=== PATIENT | male | born 1980 ===

== ENCOUNTER 2023-05-27 07:11 | Emergency (ER) | payer MEDICARE, MEDICAID, SELFPAY ==
--- NOTE | ~2023-05-27 | XR_ITS ---
EXAMINATION: XR ANKLE, LEFT CLINICAL INFORMATION: Ankle pain COMPARISON: None available. TECHNIQUE: AP, lateral, and mortise views of the left ankle. FINDINGS: Soft tissue swelling of the ankle. Comminuted intra-articular fracture of the medial malleolus, including a transverse fracture plane, with lateral displacement of the distal bone. Multiple displaced fracture fragments seen. Spiral/oblique intra-articular fracture of the distal fibula, involving the epiphysis, metaphysis, with posterior displacement of the distal bone by approximately 0.7 cm. . There is asymmetry of the ankle mortise. Talar dome appears intact. Anterior calcaneal process and fifth metatarsal base appears intact. Moderate plantar and dorsal calcaneal spurring. XR/XR ankle LT min 3V IMPRESSION: Comminuted displaced intra-articular medial malleolar fracture. Spiral/oblique displaced intra-articular fracture of the distal fibula. Disruption of the ankle mortise. Soft tissue swelling.
[2023-05-27 07:18] VITALS: BP 132/67; PULSE 57; RESP 16; TEMP 36.8; O2SAT 97; BMI 34.3
--- NOTE | 2023-05-27 07:34 | ED.GENADULT ---
HPI - General Adult General Chief complaint: Extremity Injury, Lower Stated complaint: SLIPPED AND FELL TWISTED ANKLE - HEAD STRIKE Time Seen by Provider: 05/27/23 07:31 Source: patient and EMS Mode of arrival: EMS Limitations: no limitations History of Present Illness HPI narrative: This is a 43-year-old male without significant medical history presenting to the emergency department status post trip and fall down two steps about 20 minutes prior to arrival, patient reports when he slipped he rolled his left ankle outward, since then has been having pain, swelling with that is worse with movement better at rest. Denies head strike or loss of consciousness with fall, not on blood thinners. Denies injury to chest, abdomen or pelvis. Denies numbness, tingling, fevers, chills, preceding symptoms to fall such as chest pain, shortness of breath, headache, vision changes or dizziness. Related Data Previous Rx's Medication Instructions Recorded ketorolac 10 mg tablet 10 mg PO TID PRN pain 5 days #15 05/27/23 tabs morphine 15 mg immediate release 15 mg PO Q6H PRN pain 5 days #10 05/27/23 tablet tabs Allergies Allergy/AdvReac Type Severity Reaction Status Date / Time No Known Allergies Allergy Verified 05/27/23 07:20 [facility] Social History Social History Advance Directives: No Advance Directives Information Provided: No Physical Exam ED Vital Signs: Vital Signs - 24 hr 05/27/23 07:18 Temperature 98.3 F Pulse Rate 57 Respiratory Rate 16 Blood Pressure 132/67 Pulse Oximetry 97 Oxygen Delivery Method Room Air BMI result Body Mass Index 34.3 Vital signs stable Appearance: Alert.? Oriented X3.? No acute distress.? Head: Normocephalic, atraumatic, no step-offs or deformities Eyes: Pupils equal, round and reactive to light.? Neck: Normal inspection.? Neck supple.? CVS: Normal heart rate and rhythm.? Pulses normal.? Respiratory: No respiratory distress.? Breath sounds normal.? Abdomen: Soft and nontender.? Skin: Skin warm and dry.? Normal skin color.? Normal skin turgor.? Extremities: No lower extremity edema.? No calf ttp. 5/5 strength to bilateral upper and lower extremities 2+ DP,AT,PT pulses equal and b/l. Full rom to b/l toes and ankles however discomfort w/ rom of left ankle. Cap refil < 2 seconds to b/l LE. Normal sensation distally to b/l LE. TTP to left ankle laterally w/ overlying swelling. Back: No midline tenderness, no C-spine tenderness, full range of motion, no CVA tenderness bilaterally Neuro: Oriented X 3.? No motor deficit.? No sensory deficit. CN 2-12 intact . Normal [id number], [id number], steady tandem gait normal coordination Course Reevaluation(s) Reevaluation #1: X-ray showing a comminuted displaced intra-articular medial malleolar fracture, spiral/oblique displaced intra-articular fracture of the distal fibula and disruption of the ankle mortise, soft tissue swelling noted. I did discuss this case with orthopedics who recommends splint outpatient follow-up within the next 5-7 days. Will give morphine for pain control at this time. Time: 08:20 Reevaluation #2: Patient still in pain will give Toradol. Will place patient in a stirrup and posterior short splint, educated on compartment syndrome and proper crutch use and ortho follow-up. Educated on worsening signs and symptoms and when to return. Advised him to call the Orthopedic team 1st thing on Monday to schedule an appointment peer Educated patient on diagnosis and treatment plan, answered all question, patient verbalizes understanding. At this time patient will be discharged home, advised to return with new or worsening symptoms. Educated on worrisome signs and symptoms and when to return. At this time I feel comfortable discharge home. Time: 08:58 Reevaluation #3: after splint application nv status intact Medical Decision Making Medical Decision Making [facility] Narrative: 43 yo m presents w/ left ankle pain and swelling s/p trip and fall PE- 2+ DP,AT,PT pulses equal and b/l. Full rom to b/l toes and ankles however discomfort w/ rom of left ankle. Cap refil < 2 seconds to b/l LE. Normal sensation distally to b/l LE. TTP to left ankle laterally w/ overlying swelling. Likely fractured vs sprain or strain. Unlikely dislocation unlikely NV compromise or threat to limb. Patient did not hit his head or neck w/ fall. No signs of traumatic injury to chest, abd or pelvis. Unlikle stroke, posterior stroke, ich. No signs of ascending paralysis, unlikely given for a. I do not suspect MS on this case. Plan imaging. Differential Diagnosis Differential Diagnoses: The differential diagnosis associated with the presentation includes Likely fractured vs sprain or strain. Unlikely dislocation unlikely NV compromise or threat to limb. Patient did not hit his head or neck w/ fall. No signs of traumatic injury to chest, abd or pelvis. Unlikle stroke, posterior stroke, ich. No signs of ascending paralysis, unlikely given for a. I do not suspect MS on this case. Admission/Observation Consideration of admission/observation: Escalation of care including admission/observation considered likely Consult Healthcare Provider Management of the patient was discussed with: Online Banking Specialist (orthopedics ) Lab Data MDM Lab Attestation statement: I reviewed the patient's lab results. Independent Interpretation I performed an independent interpretation of an: Plain X-Ray Radiology Impression Discussion of test interpretation with radiology: I have reviewed the radiologist's reading. Tests considered The following testing was considered but not selected: Considered head ct due to fall but no head strike or loc. No complaints of headache, dizziness, weakness. GCS-15, NIHSS-[address] instrument w/ Low?risk of significant intracranial injuries CT not necessary Prescription Management I considered prescription management with: Pain Medication Chronic Conditions Patient?s care impacted by: Other (obesity ) Critical Care Time Critical Care Time Critical Care Time: Yes Total Critical Care Time: 35 Attestation: I attest to this time spent taking care of the patient, obtaining history, physical, reviewing labs, imaging, speaking to my attending, speaking to specialist. Discharge Plan Discharge Clinical Impression: Ankle fracture, Fall Patient Disposition: Home, Self-Care Instructions: Ankle Fracture (ED) Additional Instructions: Take your medications as prescribed. If you were prescribed antibiotics today, it is important that you take your medication to their entirety, do not skip any doses, do not finish them early. Follow-up with your primary care provider this week. Call the orthopedic team on Monday and schedule an appointment within the next 5-7 days. Return to the emergency department with new or worsening symptoms. Such as fevers, chills, chest pain, shortness of breath, nausea, vomiting, dizziness, headache, vision changes, lethargy In case of emergency call 911 XR/XR ankle LT min 3V IMPRESSION: Comminuted displaced intra-articular medial malleolar fracture. Spiral/oblique displaced intra-articular fracture of the distal fibula. Disruption of the ankle mortise. Soft tissue swelling. Please return if any signs or symptoms of compartment syndrome or if you experience severe pain, swelling, changes in skin color, numbness tingling, tightness sensation to skin. A narcotic has been sent to your pharmacy please take this as prescribed. Do not take more than the prescribed dose. Narcotic medications can cause addiction. Please do not mix them with alcohol. Do not take them while driving or operating machinery. Do not take them with any other narcotics. Do not share them with friends or family. They can cause constipation. Take them only for severe pain. Toradol has been sent to your pharmacy, you tolerated this well in the department. Please take this as prescribed do not take this with ibuprofen, or other NSAIDs, do not mix this with alcohol. Side effects of this medication including increased risk for bleeding and possible kidney injury. Prescriptions: New ketorolac 10 mg tablet 10 mg PO TID PRN (Reason: pain) 5 Days Qty: 15 0RF morphine 15 mg tablet 15 mg PO Q6H PRN (Reason: pain) 5 Days Qty: 10 0RF Rx Instructions: Partial Fill upon patient request. Referrals: [facility] [Provider Group] - 2 days Physician,Unknown J [Primary Care Provider] - 2 days Stand Alone Forms: Work/School Release
[2023-05-27] MEDS: Ketorolac Tromethamine 15 MG/ML VIAL 30 MG IM (09:10)
[2023-05-27] MEDS: Morphine Sulfate 4 MG/ML CARTRIDGE IM (09:11)
--- NOTE | 2023-05-27 09:18 | PC.NURSE ---
pt medicated per the [facility] for pain, PCT at bedside for splint.
== END 2023-05-27 10:01 | disposition home or self-care (01) ==
PROVIDERS: Emergency Provider Emergency Medicine
DX: S82.892A Other fracture of left lower leg, initial encounter for closed fracture (principal); W10.9XXA Fall (on) (from) unspecified stairs and steps, initial encounter; Y93.9 Activity, unspecified; Y92.9 Unspecified place or not applicable; Y99.9 Unspecified external cause status
CPT/HCPCS: 73610; 96372; 99283; 99284; J1885; J2270

== ENCOUNTER 2023-06-02 10:20 | Outpatient (AMB) | payer MEDICARE, MEDICAID, SELFPAY ==
--- NOTE | 2023-06-02 10:31 | A.OFFVIS_ITS ---
Intake Intake Visit Reasons: fc- left ankle fracture Intake Note: Arcadio martinez 43 year old male presents today for an ER follow up of left ankle, DOI 05/27/23. Patient reports he slipped falling down a few steps causing him to roll his left ankle outward. He presented to [facility] same day where xrays were taken and placed in a splint. Currently pain fluctuates in intensity and is unable to bear weight on left foot. Occasional numbness and tingling in toes. He has completed pain medication that was prescribed at ED. Finds little relief with ibuprofen. States being out of work since injury. Allergies No Known Allergies Allergy (Verified 06/02/23 10:47) HPI fc- left ankle fracture HPI Details 43-year-old male who presents to the off ice today for an ER follow-up of left ankle injury s/p slipping and falling down a few steps and causing him to roll his left ankle outwards, 05/27/23. He was seen at ED the same day where x-rays were performed and he was placed in a splint. He states he has swelling and pain which fluctuates in intensity in his ankle as well as occasional numbness and tingling in his toes. He is unable to weight bear on his left foot. He has completed with the pain medication which was prescribed at the ED. He finds mild relief with ibuprofen. 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 He has a history of prediabetes. 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 [employer] Review of Systems Const All systems reviewed & are unremarkable except as noted in HPI and below Physical Exam Const General: cooperative, healthy appearing, comfortable, no acute distress, well developed and alert Orientation/consciousness: patient oriented x3 HEENT Head: Yes normal to inspection, Yes normocephalic and Yes atraumatic Eyes General: appearance normal, both eyes and all related structures Neck Neck: Yes normal visual inspection and Yes no lymphadenopathy Resp Effort & Inspection: normal respiratory effort and able to speak in complete sentences Cardio Rate: regular rate Peripheral pulses: Peripheral pulses 2+ throughout GI Inspection: Yes normal to inspection Palpation (GI): Soft to palpation Skin General skin exam: no rashes or lesions noted Neuro General: patient oriented x3 Extrem Other: Left ankle: Normal to inspection. There is diffused swelling throughout the ankle with ecchymosis. He does have full sensation. Pulses are present. Psych Appearance: grossly normal Mental Status: mental status grossly normal Office Procedures Casting/Splints 26416-Ecfkb Leg splint application Procedure code (CPT) selection complete Results Reviewed Results Reviewed: xrays of the left ankle obtained on in the ED: IMPRESSION: Comminuted displaced intra-articular medial malleolar fracture. Spiral/oblique displaced intra-articular fracture of the distal fibula. Disruption of the ankle mortise. Soft tissue swelling. Assessment & Plan Assessment & Plan (1) Closed left ankle fracture: Code(s): S82.892A - Other fracture of left lower leg, initial encounter for closed fracture Qualifiers: Encounter type: initial encounter Qualified Code(s): S82.892A - Other fracture of left lower leg, initial encounter for closed fracture Plan I discussed the case with Dr. Whitmore. I discussed the extent of the injury to the patient and options available. Given the extent of the fracture pattern and high risk of further displacement, it is recommended that we surgically fix this to help with stability and restoring anatomy. I explained to the patient the procedure in detail along with the risks, benefits and alternatives. Risks including but not limited to infection, wound breakdown, stiffness, ongoing pain, nonunion or malunion, and possible complications with hardware. He does understand all this and would like to proceed with open reduction internal fixation of the left ankle with Dr. Whitmore. He will be booked accordingly. Medications: New [Kneeling Scooter] duration: lifetime 1 ea 0RF S82.892A - Other fracture of left lower leg, initial encounter for closed fracture Patient Instructions: Scribed for Richi Henning PA-C, by Nate Portillo medical scientific liaison, on 06/02/2023 at 10:30 AM EST. Richi Mireles PA-C, have personally reviewed and agree with the information entered by the scribe. Coding Level of Care Code New Pt Level 4 (91270) Diagnoses Closed fracture of left ankle, initial encounter S82.892A Encounter type: initial encounter CPT Codes Splint - CPT: 41790-Vtoda Leg splint application ([id number])
== END 2023-06-02 11:16 | disposition home or self-care (01) ==
PROVIDERS: Visit Provider Physician Assistant
DX: S82.52XA Displaced fracture of medial malleolus of left tibia, initial encounter for closed fracture (principal); S82.442A Displaced spiral fracture of shaft of left fibula, initial encounter for closed fracture; W10.9XXA Fall (on) (from) unspecified stairs and steps, initial encounter
CPT/HCPCS: 27760; 99204

== ENCOUNTER → 2023-06-02 10:20 | Outpatient (BNVA) | payer MEDICARE, MEDICAID, SELFPAY | PROVIDERS: Visit Provider Physician Assistant | DX: S82.52XA Displaced fracture of medial malleolus of left tibia, initial encounter for closed fracture (principal); W10.8XXA Fall (on) (from) other stairs and steps, initial encounter; Y93.01 Activity, walking, marching and hiking; Y92.9 Unspecified place or not applicable; Y99.8 Other external cause status | CPT/HCPCS: 27760 ==

== ENCOUNTER 2023-06-06 09:35 | Day surgery (SDC) | payer MEDICARE, MEDICAID, SELFPAY ==
--- NOTE | 2023-06-05 09:07 | HO.ANESPROP2 ---
Documented by User: Mia Stinson NP 06/05/23 09:07 HPI - Anesthesia Eval Consult details Narrative: 43yo M for ?Ankle Fracture ORIF [facility] Active Problems Active Problems: All Active Problems (Updated 06/02/23 @ 11:13 by Richi Henning PA-C) Closed left ankle fracture (Acute) Past Medical History Medical History (Updated 06/05/23 @ 13:21 by Bushra Monson, RN) Pre-diabetes Elevated cholesterol HTN (hypertension) Surgical History Surgical History (Updated 06/02/23 @ 10:35 by DARIEN Trivedi) Hx of neck surgery History of total right hip replacement History of back surgery Social History Social History (Updated 06/02/23 @ 10:35 by DARIEN Trivedi) Patient Tobacco Use Status: Never used Tobacco Current occupational status: employed Current occupation: [employer] Allergies Allergy/AdvReac Type Severity Reaction Status Date / Time No Known Allergies Allergy Verified 06/02/23 10:47 Home Medications Medication Instructions Recorded Confirmed Last Taken Type atorvastatin 20 mg tablet 20 mg PO DAILY 06/02/23 Unknown History enalapril maleate 20 mg tablet 20 mg PO BID 06/02/23 Unknown History gabapentin 600 mg tablet 600 mg PO TID 06/02/23 Unknown History ibuprofen 800 mg tablet 800 mg PO TID 06/02/23 Unknown History metformin 500 mg tablet,extended 500 mg PO BID 06/02/23 Unknown History release 24 hr Exam Exam Date and Time: June 05, 2023 0907 Assessment and Plan Assessment Anesthesia Assessment: Chart Reviewed Documented by User: Edgar Oliveira MD 06/06/23 07:58 [facility] Past Medical History Medical History (Updated 06/05/23 @ 13:21 by Bushra Monson, TROY) Pre-diabetes Elevated cholesterol HTN (hypertension) Family History Family history of problems with anesthesia: No Surgical History Surgical History (Updated 06/02/23 @ 10:35 by DARIEN Trivedi) Hx of neck surgery History of total right hip replacement History of back surgery History of Problems with Anesthesia: No Social History Social History (Updated 06/02/23 @ 10:35 by DARIEN Trivedi) Patient Tobacco Use Status: Never used Tobacco Current occupational status: employed Current occupation: [employer] Allergies Allergy/AdvReac Type Severity Reaction Status Date / Time No Known Allergies Allergy Verified 06/02/23 10:47 Home Medications Medication Instructions Recorded Confirmed Last Taken Type atorvastatin 20 mg tablet 20 mg PO DAILY 06/02/23 Unknown History enalapril maleate 20 mg tablet 20 mg PO BID 06/02/23 Unknown History gabapentin 600 mg tablet 600 mg PO TID 06/02/23 Unknown History ibuprofen 800 mg tablet 800 mg PO TID 06/02/23 Unknown History metformin 500 mg tablet,extended 500 mg PO BID 06/02/23 Unknown History release 24 hr Exam Airway Mallampati Class: III TM Dist: >3cm Neck ROM: Limited Heart: rrr Lungs: cta Assessment and Plan Assessment Anesthesia Assessment: Anesthesia Plan Discussed Final Anesthetic Review Family History of Problems with Anesthesia: No History of Problems with Anesthesia: No NPO: Yes ASA Class: III Final Preanesthetic Review: No Changes in Pt Med Stat, Meds/Allgs Chart Reviewed, Consent Obtained/Reviewed and Anes Risks/Benef Reviewed Patient Risk: Intermediate Procedure Risk: Intermediate Anesthetic Plan Anesthetic Plan: GA and Regional Block Disposition: Standard PACU
[2023-06-06] VITALS (11 sets, daily range): BP systolic 140–178; BP diastolic 79–99; PULSE 76–95; RESP 13–18; TEMP 36.5–36.8; O2SAT 95–97; BMI 35.2
--- NOTE | ~2023-06-06 | FL_ITS ---
EXAMINATION: XR FLUOROSCOPY WITH IMAGES CLINICAL INFORMATION: Fracture of left ankle. COMPARISON: Previous x-ray of the left ankle 05/27/2023 TECHNIQUE: Fluoroscopy Supervised By: Dr. Sergey Whitmore. Fluoroscopy Time: 20.80 seconds. Cumulative Dose: 1.07200 mGy. DAP: 0.0673 Gycm2. Images: 6. FINDINGS: Images demonstrate plate and screw fixation of the distal fibular shaft fracture and 2 screws transfixing the medial malleolar fracture with improved alignment. FL/FL guidance in OR IMPRESSION: Fluoroscopy guidance for ORIF of left ankle fracture.
[2023-06-06 10:29] LABS: Glucose, Whole Blood 130 mg/dL (60-115)
[2023-06-06] MEDS: Lactated Ringers 1,000 ML 100 ML IVCONT (10:53)
--- NOTE | 2023-06-06 12:08 | MHC.SHP ---
Pre-Procedural Eval Section A Date of Service: 06/06/23 The patient is an INPATIENT: No Changes since office visit: No Cold of Flu in the past 2 weeks, No New Medical Problems, No Changes in Medication and No Patient answered all questions The History & Physical has been completed within 30 days and I have reviewed it.: Yes Section B Chief Complaint: Other fracture of left lower leg, initial encounte Allergies: Allergies Allergy/AdvReac Type Severity Reaction Status Date / Time No Known Allergies Allergy Verified 06/02/23 10:47 Plan I have reviewed the history and physical and performed a pertinent physical examination on my patient. No changes have occurred unless specified. Time Spent With Patient Time: Total time managing care of this patient today ____ minutes.
--- NOTE | 2023-06-06 13:18 | PC.NURSE ---
pt on admission to preop, notified of OR schedule changed for order of pt OR schedule to accept another pt first due to need of equipment in OR. pt verbalized understanding. this RN gave preop cordless to pt who called model maker plastic. In the meantime, adjusted hob and given warm blanket for comfort. Pt verbalized understanding, good affect, closing eyes intermittently. Operative/Slot Shift Manager then stating model maker plastic in waiting room upset. This RN spoke to model maker plastic, no anger affect noted, described change in order of OR schedule r/t OR equipment needed. Estimated time frame given to both model maker plastic and pt. phone taken from belonging bag and given to pt and they spoke via pt's own phone. Pt and model maker plastic verbalize understanding and no anger affect noted.
[2023-06-06] MEDS: fentaNYL citrate/PF 100 MCG/2 ML VIAL 25 MCG IVPUSH ×4 (16:20→16:35)
[2023-06-06] MEDS: HYDROmorphone HCl 0.5 MG/0.5 ML SYRINGE 0.25 MG IVPUSH ×2 (16:40→16:45)
--- NOTE | 2023-06-12 09:19 | PM.OP ---
Brief Operative Note Date of Service: 06/06/23 Pre-op diagnosis: left ankle bony Post-op diagnosis: same Procedure: ORIF left ankle Implants: Mark Surgeon: Sergey Whitmore MD Anesthesia: GETA and regional Was an Industrial Diamond Polisher used for this Procedure?: Yes Industrial Diamond Polisher: Richi Henning Estimated blood loss (mL): 5 Tourniquet time (min): 45 IV fluids (mL): 1,000 Pathology: none sent Condition: stable Disposition: PACU
--- NOTE | 2023-06-12 09:21 | W.PM.OPN ---
Operative Note Operative Note Date of Service: 06/06/23 Narrative: Date of Service: 06/06/23 Pre-op diagnosis: left ankle bony Post-op diagnosis: same Procedure: ORIF left ankle Implants: Cascade Surgeon: Sergey Whitmore MD Anesthesia: GETA and regional Was an Administrative Office Manager used for this Procedure?: Yes Administrative Office Manager: Richi Henning Estimated blood loss (mL): 5 Tourniquet time (min): 45 IV fluids (mL): 1,000 Pathology: none sent Condition: stable Disposition: PACU Procedure in detail: Patient was brought to the operating room and placed supine on the operative table. All bony prominences were well padded and a time-out was called to identify proper site proper procedure proper surgeon. IV antibiotics per weight were administered. I began by exsanguinating limb is slightly tourniquet to 300 mm Hg. I then made a standard posterolateral incision over the fibula. Full-thickness flaps were taken down to the fibular shaft and distal fibula. The fracture was identified and cleaned with a combination of curette, rongeur and irrigation. A lobster claw was used to provisionally reduce the fracture and a 6 hole distal fibular locking plate was applied using standard AO technique. Biplanar fluoroscopy was used to confirm hardware position and fracture reduction. Once I was satisfied that both of these were acceptable I irrigated copiously and turned my attention to the medial side. The transverse medial malleolar fracture was identified after skin incision. Full-thickness skin flaps were developed and, With a sharp tenaculum, the fracture was reduced. 2 threaded K-wires were then placed from distal to proximal and perpendicular to the fracture. Biplanar fluoroscopy was used to confirm positioning and then they were overdrilled and 2 40 mm 4.0 partially-threaded cannulated cancellous screws were placed across the fracture. I was satisfied with the position and the fracture reduction based on biplanar fluoroscopy. This syndesmosis was tested using external rotation test and was found to be stable. Therefore all instrumentation was removed and copious irrigation was performed. Absorbable suture and moises were used for closure and the patient was placed into sterile dressings and a well-padded posterior splint. Tourniquet was let down and the patient was extubated brought to recovery room in stable condition there were no known complications.
== END 2023-06-06 17:00 | disposition home or self-care (01) ==
PROVIDERS: Visit Provider Orthopaedic Surgery
PROC: (CPT 27766; principal; 2023-06-06 13:00)
DX: S82.892A Other fracture of left lower leg, initial encounter for closed fracture (principal); W10.8XXA Fall (on) (from) other stairs and steps, initial encounter; R73.03 Prediabetes; I10 Essential (primary) hypertension; E78.5 Hyperlipidemia, unspecified; Y93.9 Activity, unspecified; Y92.9 Unspecified place or not applicable; Y99.9 Unspecified external cause status
CPT/HCPCS: 27766; 82947; C1713; J0690; J1100; J1170; J2371; J2405; J2795; J3010

== ENCOUNTER → 2023-06-06 09:35 | Outpatient (BNV) | payer MEDICARE, MEDICAID, SELFPAY | PROVIDERS: Visit Provider Orthopaedic Surgery | DX: S82.845A Nondisplaced bimalleolar fracture of left lower leg, initial encounter for closed fracture (principal) | CPT/HCPCS: 27814 ==

== ENCOUNTER 2023-06-12 09:11 | Outpatient (AMB) | payer MEDICARE, MEDICAID, SELFPAY ==
--- NOTE | 2023-06-12 09:26 | A.OFFVIS_ITS ---
Intake Intake Visit Reasons: PO-Lt Ankle ORIF 06/06 NE Intake Note: Arcadio is a 43 year old male who presents today for a post operative appointment s/p Left Ankle ORIF 06/06/23. Patient reports that he is doing well he is having some pain but he is taking the medication which is helping. Allergies No Known Allergies Allergy (Verified 06/02/23 10:47) HPI PO-Lt Ankle ORIF 06/06 NE HPI Details 43-year-old male who returns to the [facility] today for post-op left ankle ORIF, 06/06/[address] Whitmore. He continues to have pain in his ankle but he is taking his medications with benefits. He is doing well overall and has no concerns today. 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 Staple intact. He has minimal swelling. No erythema or drainage. Calf supple, nontender. NVI. Office Procedures Casting/Splints 15250-Xerpo Leg Cast Application Procedure code (CPT) selection complete Results Reviewed Results Reviewed: Xrays were obtained in the office today and personally reviewed by me of the left ankle show intact hardware with stable fracture pattern Assessment & Plan Assessment & Plan (1) Status post open reduction with internal fixation (ORIF) of fracture of ankle: Code(s): Z98.890 - Other specified postprocedural states; Z87.81 - Personal history of (healed) traumatic fracture Plan He was placed in a short leg cast today. He will continue non weight bearing and see me back in 1 week for cast off with x-rays and staple removal. Orders: Orders XR ankle LT min 3V Today M25.572 - Pain in left ankle and joints of left foot Patient Instructions: Scribed for Hardik-Tawanna Henning PA-C, by Nate Portillo medical director/head team physician, on 06/12/2023 at 9:15 AM NEGRITA. Hardik Mireles-Tawanna Henning PA-C, have personally reviewed and agree with the information entered by the scribe. Coding Level of Care Code Global (68749) Diagnoses Status post open reduction with internal fixation (ORIF) of fracture of ankle Z98.890; Z87.81 CPT Codes Casting - CPT: 18946-Sjyvv Leg Cast Application ([id number])
== END 2023-06-12 10:20 | disposition home or self-care (01) ==
PROVIDERS: Visit Provider Physician Assistant
DX: S82.845D Nondisplaced bimalleolar fracture of left lower leg, subsequent encounter for closed fracture with routine healing (principal); W10.8XXD Fall (on) (from) other stairs and steps, subsequent encounter
CPT/HCPCS: 29405; 99024

== ENCOUNTER 2023-06-12 09:11 | Outpatient (REF) | payer MEDICARE, MEDICAID, SELFPAY ==
--- NOTE | ~2023-06-12 | XR_ITS ---
EXAMINATION: XR ANKLE, LEFT CLINICAL INFORMATION: Left ankle pain. COMPARISON: 05/27/2023. TECHNIQUE: AP, lateral, and mortise views of the left ankle. FINDINGS: Since the prior study, there has been open reduction and internal fixation of medial and lateral malleolar fractures with 2 screws through the medial malleolus and a plate and screw device overlying the fibula. One screw traverses the fibula and is not through the plate. A posterior malleolar fracture is also present. Surgical moises are in place. Fracture fragments are well aligned. XR/XR ankle LT min 3V IMPRESSION: Status post open reduction and internal fixation of medial and lateral malleolar fractures.
== END 2023-06-12 09:12 | disposition home or self-care (01) ==
LOC: HO.HOSX 09:11
PROVIDERS: Visit Provider Physician Assistant
DX: S82.892D Other fracture of left lower leg, subsequent encounter for closed fracture with routine healing (principal); M25.572 Pain in left ankle and joints of left foot; X58.XXXD Exposure to other specified factors, subsequent encounter; Z98.890 Other specified postprocedural states; Z79.899 Other long term (current) drug therapy
CPT/HCPCS: 29405; 73610

== ENCOUNTER 2023-06-19 10:16 | Outpatient (AMB) | payer MEDICARE, MEDICAID, SELFPAY ==
--- NOTE | 2023-06-19 10:24 | A.OFFVIS_ITS ---
Intake Intake Visit Reasons: PO-Lt Ankle ORIF 06/06 NE Intake Note: Arcadio a 43 year old male presents today for a post operative left ankle ORIF, DOS 06/06/23 NE. Cast off and xrays updated. Patient reports doing okay. He states that he gets an uncomfortable sensation with movement. Allergies No Known Allergies Allergy (Verified 06/19/23 10:24) HPI PO-Lt Ankle ORIF 06/06 NE HPI Details 43-year-old male who returns to the [facility] today for post-op left ankle ORIF, 06/06/[address] Whitmore. He states he has no pain but he does c/o an uncomfortable sensation in his ankle with movement. He is doing well overall and has no concerns today. 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 Staple intact. He has minimal s welling. No erythema or drainage. Calf supple, nontender. NVI. Assessment & Plan Assessment & Plan (1) Status post open reduction with internal fixation (ORIF) of fracture of ankle: Code(s): Z98.890 - Other specified postprocedural states; Z87.81 - Personal history of (healed) traumatic fracture Plan [place] removed today, steri strips applied. He was placed in another short leg cast non weight bearing for another 5 weeks, at that time he will return to office cast off with x-rays, our plan will be to transition him to walking boot weight bearing as tolerated. Patient Instructions: Scribed for Richi Henning PA-C, by Nate Portillo, medical lab tech instructor, on 06/19/2023 at 10:30 AM EST. I, Ta-Tawanna Meuse, PA-C, have personally reviewed and agree with the information entered by the scribe. Coding Level of Care Code Global (96094) Diagnoses Status post open reduction with internal fixation (ORIF) of fracture of ankle Z98.890; Z87.81
== END 2023-06-19 11:34 | disposition home or self-care (01) ==
PROVIDERS: Visit Provider Physician Assistant
DX: Z98.890 Other specified postprocedural states (principal); Z87.81 Personal history of (healed) traumatic fracture
CPT/HCPCS: 99024

== ENCOUNTER → 2023-06-19 10:16 | Outpatient (BNVA) | payer MEDICARE, MEDICAID, SELFPAY | PROVIDERS: Visit Provider Physician Assistant ==

== ENCOUNTER 2023-07-17 09:08 | Outpatient (AMB) | payer MEDICARE, MEDICAID, SELFPAY ==
--- NOTE | 2023-07-17 09:27 | A.OFFVIS_ITS ---
Intake Intake Visit Reasons: PO-Lt Ankle ORIF 06/06 NE Intake Note: Arcadio a 43 year old male presents today for a post operative left ankle ORIF, DOS 06/06/23 NE. Cast off and xrays updated. Patient reports he is doing well, he denies any pain. Allergies No Known Allergies Allergy (Verified 07/17/23 09:28) HPI PO-Lt Ankle ORIF 06/06 NE HPI Details 43-year-old male who returns to the [facility] today for post-op left ankle ORIF, 06/06/[address] Whitmore. He states he has no pain in his ankle and is doing well overall. He has no other concerns today. [facility] Medical History (Updated 06/05/23 @ 13:21 by Bushra Monson RN) Pre-diabetes Elevated cholesterol HTN (hypertension) Surgical History Hx of neck surgery History of total right hip replacement History of back surgery Social History Patient Tobacco Use Status: Never used Tobacco Current occupational status: employed Current occupation: [employer] [place] Review of Systems Const All systems reviewed & are unremarkable except as noted in HPI and below Physical Exam Extrem Other: Left ankle: Incision well healed. Mild swelling. No erythema. Sensation intact. Results Reviewed Results Reviewed: Xrays were obtained in the office today and personally reviewed by me of the left ankle show intact hardware with stable fracture pattern Assessment & Plan Assessment & Plan (1) Status post open reduction with internal fixation (ORIF) of fracture of ankle: Code(s): Z98.890 - Other specified postprocedural states; Z87.81 - Personal history of (healed) traumatic fracture (2) Closed left ankle fracture: Code(s): S82.892A - Other fracture of left lower leg, initial encounter for closed fracture Qualifiers: Encounter type: initial encounter Qualified Code(s): S82.892A - Other fracture of left lower leg, initial encounter for closed fracture Plan He was transitioned to a tall walking boot which he will weight bear as tolerated. He can remove the boot for exercises and hygiene. I did put in an order of physical therapy to work on ROM, gentle strengthening and p roprioceptive training. He will remain out of work for the next 6 weeks until I see him back with new x-rays, sooner if needed. Orders: Orders PT Evaluation and Treatment Today S82.892A - Other fracture of left lower leg, initial encounter for closed fracture, Z87.81 - Personal history of (healed) traumatic fracture, Z98.890 - Other specified postprocedural states Patient Instructions: Scribed for Richi Henning PA-C, by Nate Portillo biomedical engineering technician, on 07/17/2023 at 9:15 AM EST. I, Richi Henning PA-C, have personally reviewed and agree with the information entered by the scribe. Coding Level of Care Code Global (78198) Diagnoses Status post open reduction with internal fixation (ORIF) of fracture of ankle Z98.890; Z87.81 Closed fracture of left ankle, initial encounter S82.895K Encounter type: initial encounter
== END 2023-07-17 09:54 | disposition home or self-care (01) ==
PROVIDERS: Visit Provider Physician Assistant
DX: Z98.890 Other specified postprocedural states (principal); Z87.81 Personal history of (healed) traumatic fracture; S82.892A Other fracture of left lower leg, initial encounter for closed fracture
CPT/HCPCS: 99024

== ENCOUNTER 2023-07-17 15:52 | Outpatient (REF) | payer MEDICARE, MEDICAID, SELFPAY ==
--- NOTE | ~2023-07-17 | XR_ITS ---
EXAMINATION: XR ANKLE, LEFT CLINICAL INFORMATION: Pain in right ankle and knee joint Right foot COMPARISON: 06/12/2023 TECHNIQUE: AP, lateral, and mortise views of the left ankle. FINDINGS: Patient is status post open reduction with internal fixation of the lateral and medial malleoli with hardware in. Hardware well-positioned. Ankle mortise is preserved. Fracture lines are still visualized. There is unfixed posterior malleolar fracture with the fragments in anatomical alignment. There is plantar calcaneal spur. XR/XR ankle LT min 3V IMPRESSION: Stable position of hardware placement for reduction of medial and lateral malleolar fractures on the left
== END 2023-07-17 15:53 | disposition home or self-care (01) ==
LOC: HO.HOSX 15:52
PROVIDERS: Visit Provider Physician Assistant
DX: S82.892D Other fracture of left lower leg, subsequent encounter for closed fracture with routine healing (principal); Z98.890 Other specified postprocedural states; X58.XXXD Exposure to other specified factors, subsequent encounter
CPT/HCPCS: 73610; 99212

== ENCOUNTER → 2023-08-15 12:22 | Outpatient (BNVA) | payer MEDICARE, MEDICAID, SELFPAY | PROVIDERS: PCP Nurse Practitioner Family; Visit Provider Orthopaedic Surgery ==

== ENCOUNTER 2023-08-28 09:05 | Outpatient (AMB) | payer MEDICARE, MEDICAID, SELFPAY ==
--- NOTE | 2023-08-28 09:20 | A.OFFVIS_ITS ---
Intake Intake Visit Reasons: PO-Lt Ankle ORIF 06/06 NE Intake Note: Arcadio a 43 year old male presents today for a post operative left ankle ORIF, DOS 06/06/23 NE. Patient reports that he has not been able to attend PT due to catching a cold that turned into pneumonia. He states at his last PT they were concerned of raw skin near incision. Allergies No Known Allergies Allergy (Verified 08/28/23 09:22) HPI PO-Lt Ankle ORIF 06/06 NE HPI Details 43-year-old male who returns to the [facility] today for post-op left ankle ORIF, 06/06/[address] Whitmore. He reports he has not been able to attend physical therapy due to catching a cold that turned into pneumonia. He is doing well otherwise and has no other concerns today. 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 Mild swelling. No erythema. Sensation intact. Results Reviewed Results Reviewed: Xrays were obtained in the office today and personally reviewed by me of the left ankle show intact hardware with stable fracture pattern Assessment & Plan Assessment & Plan (1) Status post open reduction with internal fixation (ORIF) of fracture of ankle: Code(s): Z98.890 - Other specified postprocedural states; Z87.81 - Personal history of (healed) traumatic fracture (2) Closed left ankle fracture: Code(s): S82.892A - Other fracture of left lower leg, initial encounter for closed fracture Qualifiers: Encounter type: initial encounter Qualified Code(s): S82.892A - Other fracture of left lower leg, initial encounter for closed fracture Plan He was transitioned to a lace up ankle brace and he will increase activity as tolerated. He will continue working with physical therapy to regain his mobility and strength. He will see us back as needed. Patient Instructions: Scribed for Richi Henning PA-C, by Nate Portillo medical claims specialist, on 08/28/2023 at 9:30 AM NEGRITA. Richi Mireles PA-C, have personally reviewed and agree with the information entered by the scribe. Coding Level of Care Code Global (37336) Diagnoses Status post open reduction with internal fixation (ORIF) of fracture of ankle Z98.890; Z87.81 Closed fracture of left ankle, initial encounter S82.892A Encounter type: initial encounter
== END 2023-08-28 10:06 | disposition home or self-care (01) ==
PROVIDERS: Visit Provider Physician Assistant
DX: Z98.890 Other specified postprocedural states (principal); Z87.81 Personal history of (healed) traumatic fracture; S82.892A Other fracture of left lower leg, initial encounter for closed fracture
CPT/HCPCS: 99024

== ENCOUNTER 2023-08-28 09:54 | Outpatient (REF) | payer MEDICARE, MEDICAID, SELFPAY ==
--- NOTE | ~2023-08-28 | XR_ITS ---
EXAMINATION: XR ANKLE, LEFT CLINICAL INFORMATION: Pain. COMPARISON: Radiographs dated 07/17/2023. TECHNIQUE: AP, lateral, and mortise views of the left ankle. FINDINGS: Bony alignment and mineralization are normal. An intact orthopedic fixator plate and fixator screws are applied to the distal left fibula, and there are intact orthopedic fixator screws applied to the medial malleolus. There is stable mild displacement of the fibular fracture, best seen on the lateral view. The medial malleolus fracture line is poorly visualized. No dislocation or joint effusion is seen. The ankle mortise is intact. On the lateral view, a small fracture fragment projects anterior to the ankle joint space, possibly arising from the fibular head. Boehler's angle is normal. There is a moderate plantar calcaneal spur. There is no abnormal bone erosion. There is generalized soft tissue swelling. There are atherosclerotic calcifications. XR/XR ankle LT min 3V IMPRESSION: 1. There is stable alignment status-post ORIF of bimalleolar fractures. No hardware failure or loosening seen. 2. There is generalized soft tissue swelling. 3. There is a small plantar calcaneal spur.
== END 2023-08-28 09:55 | disposition home or self-care (01) ==
LOC: HO.HOSX 09:54
PROVIDERS: Visit Provider Physician Assistant
DX: M25.571 Pain in right ankle and joints of right foot (principal); S82.892A Other fracture of left lower leg, initial encounter for closed fracture; X58.XXXA Exposure to other specified factors, initial encounter; Y93.9 Activity, unspecified; Y92.9 Unspecified place or not applicable; Y99.9 Unspecified external cause status; Z96.662 Presence of left artificial ankle joint; Z87.81 Personal history of (healed) traumatic fracture
CPT/HCPCS: 73610; 99212

== ENCOUNTER 2024-04-12 10:22 | Outpatient (REF) | payer MEDICARE, MEDICAID, SELFPAY ==
--- NOTE | ~2024-04-12 | XR_ITS ---
EXAMINATION: XR SHOULDER, RIGHT CLINICAL INFORMATION: Pain. COMPARISON: None available. TECHNIQUE: AP external rotation, Grashey, scapular Y, and axillary views of the right shoulder. FINDINGS: The bones and soft tissues are normal. No fracture. Glenohumeral and acromioclavicular alignment is anatomic with normal joint space. No abnormal soft tissue calcifications. XR/XR shoulder RT min 2V IMPRESSION: Normal right shoulder. Electronically signed by: Hai Burton MD 05/02/2024 07:19 PM EDT
== END 2024-04-12 10:23 | disposition home or self-care (01) ==
LOC: HO.XRAY 10:22
PROVIDERS: PCP Nurse Practitioner Family; Visit Provider Registered Nurse
DX: M25.511 Pain in right shoulder (principal); G89.29 Other chronic pain
CPT/HCPCS: 73030

== ENCOUNTER → 2024-05-31 14:15 | Outpatient (BNVA) | payer MEDICARE, MEDICAID, SELFPAY | PROVIDERS: PCP Nurse Practitioner Family; Visit Provider Physician Assistant Surgical ==

== ENCOUNTER 2024-06-17 08:13 | Outpatient (AMB) | payer MEDICARE, MEDICAID, SELFPAY ==
--- NOTE | 2024-06-17 09:38 | MHC.OFFVISWM ---
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 34.8: Details: Start time: 9.30am, End time: 10.11am ?I spent 36 minutes speaking with the patient on the phone plus an additional 5 minutes reviewing and updating records for a total of 41 minutes HPI Comments Details: Previous weight loss efforts: self diets and exercise Wakes up: 6am, Sleeps: 10pm Breakfast: 9.30am (sandwich) Lunch: skips Dinner: 6-7pm (rice, beans, chicken, soups, taco salads) Snacks: 3-4pm (fruits), 8pm (crackers, cereal, banana) Exercise: none Fluids: Coffee: occasionally, tea: none, soda: regular Coke, juice: orange juice 3-4/wk, ETOH: none PFSH Medical History (Updated 06/17/24 @ 10:05 by Uri Zavala MD) DJD (degenerative joint disease) GERD (gastroesophageal reflux disease) Non-insulin dependent type 2 diabetes mellitus BMI 34.0-34.9,adult Obesity Pre-diabetes Elevated cholesterol HTN (hypertension) Surgical History (Updated 05/31/24 @ 14:35 by Renetta Bishop CMA) Status post open reduction with internal fixation (ORIF) of fracture of ankle Hx of neck surgery History of total right hip replacement History of back surgery Family History (Updated 05/31/24 @ 14:37 by Renetta Bishop CMA) Mother COPD (chronic obstructive pulmonary disease) Father COPD (chronic obstructive pulmonary disease) Daughter No problems noted. 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[employer] [facility] Telehealth Telehealth Platform: Telephone Location of provider rendering services: practice address Location of patient: address on file Patient Identification confirmed using: Name, : Yes Telehealth method: voice only Patient verbally consented to treatment: Yes Patient verbally consented to billing insurance company: Yes Patient informed of any privacy concerns related to visit: Yes Minutes spent on Phone/Video with Pt.: 41 Assessment & Plan Assessment & Plan (1) Obesity: Code(s): E66.9 - Obesity, unspecified Category: Medical Qualifiers: Obesity type: due to excess calories Obesity classification: adult class 2 (BMI 35 - 39.9) Serious obesity comorbidity presence: with serious comorbidity Body mass index: BMI 35.0-35.9 Qualified Code(s): E66.812 - Obesity, class 2; E66.01 - Morbid (severe) obesity due to excess calories; Z68.35 - Body mass index [BMI] 35.0-35.9, adult Plan: 1.? Plan for lap sleeve gastrectomy. If diaphragmatic or ventral hernias are present at time of surgery, these will be repaired laparoscopically as well. Risks and complications include possible conversion to an open procedure, anastomotic leak, bleeding requiring transfusion, small bowel obstruction, , DVT and pulmonary embolism, cardiac, or pulmonary complications, as middle or intermediate school principal complications such as anastomotic ulcer, insufficient weight loss and vitamin deficiencies. I emphasized the importance of close follow-up, adherence to instructions and good communication. 2. You will receive a link of our software vika to generate an individualized nutritional and exercise plan specific for you. Please send me a screenshot of the plans you will generate Meal to include lean meat (beef, fish, pork, turkey, chicken), or nauruan yogurt, or egg whites, or beans with a salad with olive oil and fruits (berries, pears, apples, kiwi). Avoid salt, breads, potatoes, rice, pasta, desserts. ?3. If you choose shakes, each shake would be drunk slowly, like coffee in a period of 2 hours. ?4. If you choose bars, cut each bar in 4 pieces and eat each piece in 30min ?to make each bar last 2 hours. ?5. I emphasized the importance of measuring accurately the food portion and measure it when serving the food in plate ?6. The meal portions include a specific number of forks of meat and salad. You always eat the meat portion but you can replace up to half of salad/vegetables portion with rice, potatoes or pasta, or a fruit ?if you like. The less you do it the better weight loss will be. ?7. One full-size fork is what it can be scooped on the fork without falling aside and not what can be bit with the fork. Use regular forks like those you find in a typical restaurant. ?8.? Please send me weight measurements as soon as possible and then once a week. Always include your diet and exercise plan. 9. The best choice would be to purchase a stationary bike, elliptical or treadmill at home that can track calories. Let me know if you do so I can give you an exercise plan. 10. To be scheduled for EGD due to history of GERD. The possibility of biopsies was discussed. Patient needs to avoid use of NSAIDs and aspirin for 1 week prior to EGD. Risks of perforation and bleeding was discussed with the patient. This will be an outpatient procedure with IV sedation. Orders: Orders Insulin Today E11.9 - Type 2 diabetes mellitus without complications, E66.9 - Obesity, unspecified, E78.00 - Pure hypercholesterolemia, unspecified, I10 - Essential (primary) hypertension, K21.9 - Gastro-esophageal reflux disease without esophagitis, Z68.34 - Body mass index [BMI] 34.0-34.9, adult Lipid Panel Today E11.9 - Type 2 diabetes mellitus without complications, E66.9 - Obesity, unspecified, E78.00 - Pure hypercholesterolemia, unspecified, I10 - Essential (primary) hypertension, K21.9 - Gastro-esophageal reflux disease without esophagitis, Z68.34 - Body mass index [BMI] 34.0-34.9, adult IRON PROFILE Today E11.9 - Type 2 diabetes mellitus without complications, E66.9 - Obesity, unspecified, E78.00 - Pure hypercholesterolemia, unspecified, I10 - Essential (primary) hypertension, K21.9 - Gastro-esophageal reflux disease without esophagitis, Z68.34 - Body mass index [BMI] 34.0-34.9, adult Vitamin B12 and Folate Today E11.9 - Type 2 diabetes mellitus without complications, E66.9 - Obesity, unspecified, E78.00 - Pure hypercholesterolemia, unspecified, I10 - Essential (primary) hypertension, K21.9 - Gastro-esophageal reflux disease without esophagitis, Z68.34 - Body mass index [BMI] 34.0-34.9, adult Zinc Today E11.9 - Type 2 diabetes mellitus without complications, E66.9 - Obesity, unspecified, E78.00 - Pure hypercholesterolemia, unspecified, I10 - Essential (primary) hypertension, K21.9 - Gastro-esophageal reflux disease without esophagitis, Z68.34 - Body mass index [BMI] 34.0-34.9, adult Vitamin B1 Today E11.9 - Type 2 diabetes mellitus without complications, E66.9 - Obesity, unspecified, E78.00 - Pure hypercholesterolemia, unspecified, I10 - Essential (primary) hypertension, K21.9 - Gastro-esophageal reflux disease without esophagitis, Z68.34 - Body mass index [BMI] 34.0-34.9, adult TSH reflex Free T4 Today E11.9 - Type 2 diabetes mellitus without complications, E66.9 - Obesity, unspecified, E78.00 - Pure hypercholesterolemia, unspecified, I10 - Essential (primary) hypertension, K21.9 - Gastro-esophageal reflux disease without esophagitis, Z68.34 - Body mass index [BMI] 34.0-34.9, adult Vitamin D 25-OH Total Today E11.9 - Type 2 diabetes mellitus without complications, E66.9 - Obesity, unspecified, E78.00 - Pure hypercholesterolemia, unspecified, I10 - Essential (primary) hypertension, K21.9 - Gastro-esophageal reflux disease without esophagitis, Z68.34 - Body mass index [BMI] 34.0-34.9, adult Hemoglobin A1c Today E11.9 - Type 2 diabetes mellitus without complications, E66.9 - Obesity, unspecified, E78.00 - Pure hypercholesterolemia, unspecified, I10 - Essential (primary) hypertension, K21.9 - Gastro-esophageal reflux disease without esophagitis, Z68.34 - Body mass index [BMI] 34.0-34.9, adult H Pylori Breath Test Today E11.9 - Type 2 diabetes mellitus without complications, E66.9 - Obesity, unspecified, E78.00 - Pure hypercholesterolemia, unspecified, I10 - Essential (primary) hypertension, K21.9 - Gastro-esophageal reflux disease without esophagitis, Z68.34 - Body mass index [BMI] 34.0-34.9, adult Complete Blood Count Auto Diff Today E11.9 - Type 2 diabetes mellitus without complications, E66.9 - Obesity, unspecified, E78.00 - Pure hypercholesterolemia, unspecified, I10 - Essential (primary) hypertension, K21.9 - Gastro-esophageal reflux disease without esophagitis, Z68.34 - Body mass index [BMI] 34.0-34.9, adult Comprehensive Met. Panel Today E11.9 - Type 2 diabetes mellitus without complications, E66.9 - Obesity, unspecified, E78.00 - Pure hypercholesterolemia, unspecified, I10 - Essential (primary) hypertension, K21.9 - Gastro-esophageal reflux disease without esophagitis, Z68.34 - Body mass index [BMI] 34.0-34.9, adult C Reactive Protein Today E11.9 - Type 2 diabetes mellitus without complications, E66.9 - Obesity, unspecified, E78.00 - Pure hypercholesterolemia, unspecified, I10 - Essential (primary) hypertension, K21.9 - Gastro-esophageal reflux disease without esophagitis, Z68.34 - Body mass index [BMI] 34.0-34.9, adult Vitamin A Today E11.9 - Type 2 diabetes mellitus without complications, E66.9 - Obesity, unspecified, E78.00 - Pure hypercholesterolemia, unspecified, I10 - Essential (primary) hypertension, K21.9 - Gastro-esophageal reflux disease without esophagitis, Z68.34 - Body mass index [BMI] 34.0-34.9, adult Ferritin Today E11.9 - Type 2 diabetes mellitus without complications, E66.9 - Obesity, unspecified, E78.00 - Pure hypercholesterolemia, unspecified, I10 - Essential (primary) hypertension, K21.9 - Gastro-esophageal reflux disease without esophagitis, Z68.34 - Body mass index [BMI] 34.0-34.9, adult US abdomen comp w elastography Today E11.9 - Type 2 diabetes mellitus without complications, E66.9 - Obesity, unspecified, E78.00 - Pure hypercholesterolemia, unspecified, I10 - Essential (primary) hypertension, K21.9 - Gastro-esophageal reflux disease without esophagitis, Z68.34 - Body mass index [BMI] 34.0-34.9, adult XR chest 2V Today E11.9 - Type 2 diabetes mellitus without complications, E66.9 - Obesity, unspecified, E78.00 - Pure hypercholesterolemia, unspecified, I10 - Essential (primary) hypertension, K21.9 - Gastro-esophageal reflux disease without esophagitis, Z68.34 - Body mass index [BMI] 34.0-34.9, adult ECG 12 lead EKG Today E11.9 - Type 2 diabetes mellitus without complications, E66.9 - Obesity, unspecified, E78.00 - Pure hypercholesterolemia, unspecified, I10 - Essential (primary) hypertension, K21.9 - Gastro-esophageal reflux disease without esophagitis, Z68.34 - Body mass index [BMI] 34.0-34.9, adult FL upper GI w air Today E11.9 - Type 2 diabetes mellitus without complications, E66.9 - Obesity, unspecified, E78.00 - Pure hypercholesterolemia, unspecified, I10 - Essential (primary) hypertension, K21.9 - Gastro-esophageal reflux disease without esophagitis, Z68.34 - Body mass index [BMI] 34.0-34.9, adult Referrals Behavioral Health Referral E11.9 - Type 2 diabetes mellitus without complications, E66.9 - Obesity, unspecified, E78.00 - Pure hypercholesterolemia, unspecified, I10 - Essential (primary) hypertension, K21.9 - Gastro-esophageal reflux disease without esophagitis, Z68.34 - Body mass index [BMI] 34.0-34.9, adult Nutrition/Dietitian Referral E11.9 - Type 2 diabetes mellitus without complications, E66.9 - Obesity, unspecified, E78.00 - Pure hypercholesterolemia, unspecified, I10 - Essential (primary) hypertension, K21.9 - Gastro-esophageal reflux disease without esophagitis, Z68.34 - Body mass index [BMI] 34.0-34.9, adult
[2024-06-17 09:50] VITALS: BMI 34.7
== END 2024-06-17 10:12 | disposition home or self-care (01) ==
LOC: HO.HBS 08:13
PROVIDERS: PCP Nurse Practitioner Family; Visit Provider Surgery
DX: E66.812 Obesity, class 2 (principal); Z68.34 Body mass index [BMI] 34.0-34.9, adult
CPT/HCPCS: 99443

== ENCOUNTER → 2024-06-17 08:13 | Outpatient (BNVA) | payer MEDICARE, MEDICAID, SELFPAY | PROVIDERS: PCP Nurse Practitioner Family; Visit Provider Surgery ==

== ENCOUNTER 2024-06-20 10:16 | Outpatient (REF) | payer MEDICARE, MEDICAID, SELFPAY ==
--- NOTE | 2024-06-20 10:55 | ECG_ITS ---
Test Reason : e66.9 Blood Pressure : / mmHG Vent. Rate : 070 BPM Atrial Rate : 070 BPM P-R Int : 148 ms QRS Dur : 086 ms QT Int : 378 ms P-R-T Axes : 037 047 024 degrees QTc Int : 408 ms Normal sinus rhythm Normal ECG No previous ECGs available Referred By: Uri Zavala Electronically Signed By:KAREN KELLER MD
[2024-06-20 11:34] LABS: MANUAL DIFF FLAG NO
[2024-06-20 11:55] LABS: Basophils Absolute Auto 0.1 X10*3/uL (0.0-0.2); Basophils Percent Auto 0.9 % (0-2); Eosinophils Absolute Auto 0.1 X10*3/uL (0.0-0.4); Eosinophils Percent Auto 1.6 % (0-4); Hematocrit 49.7 % (42.0-52.0); Imm Gran Abs Auto 0.02 X10*3/uL (0.00-0.03); Imm Gran Pct Auto 0.3 % (0.0-0.4); Lymphocytes Percent Auto 26.7 % (20-40); Mean Corpuscular HGB Conc 34.2 g/dl (31.0-36.0); Mean Corpuscular Hemoglobin 31.3 pg (27.0-33.0); Mean Corpuscular Volume 91.4 fL (80.0-98.0); Mean Platelet Volume 11.3 fL (9.4-12.4); Monocytes Absolute Auto 0.7 X10*3/uL (0.1-1.2); Monocytes Percent Auto 8.8 % (2-11); Neutrophils Absolute Auto 4.6 x10*3/uL (2.0-8.3); Neutrophils Percent Auto 61.7 % (45-73); Platelet Count 246 X10*3/uL (160-400); Red Blood Count 5.44 X10*6/uL (4.60-5.80); Red Cell Distribution Width 12.7 % (11.0-16.0); White Blood Count 7.4 X10*3/uL (4.8-10.8)
[2024-06-20 12:22] LABS: Estimated Average Glucose 146 mg/dL; Hemoglobin A1c % 6.7 % (<6.0); Total Hemoglobin (HGBA1C) 4460.4696 umol/L
[2024-06-20 12:40] LABS: Alanine Aminotransferase 46 U/L (0-40); Albumin Level 4.4 g/dL (3.5-5.0); Alkaline Phosphatase 100 U/L (39-117); Anion Gap 15 (12-20); Aspartate Amino Transferase 37 U/L (5-37); Bilirubin Total 0.6 mg/dL (0.0-1.0); Blood Urea Nitrogen 9 mg/dL (9-16); C Reactive Protein 0.83 mg/dL (< or = 0.50); Calcium 9.6 mg/dL (8.4-10.2); Carbon Dioxide 25 mmol/L (22-29); Chloride 103 mmol/L (96-108); Cholesterol 182 mg/dL (<200); Estimated Glomerular Filt Rate > 60; Glucose Random 121 mg/dL (60-115); HDL Cholesterol 42 mg/dL (>40); Iron 155 mcg/dL (45-160); LDL Cholesterol Calculated 114 mg/dL (<100); Percent Iron Saturation 50 % (15-50); Potassium 4.1 mmol/L (3.3-5.1); Sodium 139 mmol/L (135-145); Total Iron Binding Capacity 307 mcg/dL (228-428); Total Protein 8.1 g/dL (6.5-8.0); Triglycerides 132 mg/dL (<150); Unsaturated Iron Binding 152 ug/dL
[2024-06-20 12:43] LABS: Ferritin 266 ng/mL (20-250); Insulin 32 uU/mL (2-29); TSH reflex Free T4 2.02 uIU/mL (0.32-4.0); Vitamin D 25-OH Total 22.4 ng/mL (>30)
[2024-06-20 12:53] LABS: Folate 12.8 ng/mL (> or = 4.0); Vitamin B12 388 pg/mL (200-900)
[2024-06-23 23:08] LABS: Zinc 77 mcg/dL (60-130)
[2024-06-26 00:08] LABS: Vitamin A 36 mcg/dL (38-98)
[2024-06-28 16:08] LABS: Vitamin B1 9 nmol/L (8-30)
== END 2024-06-20 10:17 | disposition home or self-care (01) ==
LOC: HO.LAB 10:16
PROVIDERS: PCP Internal Medicine; Visit Provider Surgery
DX: E66.9 Obesity, unspecified (principal); Z68.34 Body mass index [BMI] 34.0-34.9, adult; E11.9 Type 2 diabetes mellitus without complications; E78.00 Pure hypercholesterolemia, unspecified; I10 Essential (primary) hypertension; K21.9 Gastro-esophageal reflux disease without esophagitis
CPT/HCPCS: 36415; 71046; 80053; 80061; 82306; 82607; 82728; 82746; 83036; 83525; 83540; 84425; 84443; 84590; 84630; 85025; 86140; 93005

== ENCOUNTER → 2024-06-20 10:55 | Outpatient (BNV) | payer MEDICARE, MEDICAID, SELFPAY | PROVIDERS: PCP Internal Medicine; Visit Provider Internal Medicine Cardiovascular Disease | DX: E66.9 Obesity, unspecified (principal) | CPT/HCPCS: 93010 ==

== ENCOUNTER → 2024-07-02 10:46 | Outpatient (AMB) | payer MEDICARE, MEDICAID, SELFPAY ==
--- NOTE | 2024-07-02 10:15 | MHC.WMTHER ---
Intake Intake Visit Reasons: VIDEO BH Intake Allergies No Known Allergies Allergy (Verified 06/17/24 09:38) [facility] Medical History (Updated 06/24/24 @ 21:05 by Uri Zavala MD) DJD (degenerative joint disease) GERD (gastroesophageal reflux disease) Non-insulin dependent type 2 diabetes mellitus BMI 34.0-34.9,adult Obesity Pre-diabetes Elevated cholesterol HTN (hypertension) Surgical History (Updated 05/31/24 @ 14:35 by Renetta Bishop CMA) Status post open reduction with internal fixation (ORIF) of fracture of ankle Hx of neck surgery History of total right hip replacement History of back surgery Family History (Updated 05/31/24 @ 14:37 by Renetta Bishop CMA) Mother COPD (chronic obstructive pulmonary disease) Father COPD (chronic obstructive pulmonary disease) Daughter No problems noted. Daughter Hypoglycemia Son Depression Anxiety Social History (Updated 05/31/24 @ 14:35 by Renetta Bishop CMA) Alcohol intake: never Patient Tobacco Use Status: Never used Tobacco Current occupational status: employed Current occupation: [employer] Behavior[employer] Assessment Weight Management Therapy Therapy Notes Details PT is a 44 years old years old male, who presents for a visit to complete BH assessment as part of surgical weight loss program. Presenting Concerns Referral Source WMP-provider. PT had initial visit with Dr. Chen on 06/17/2024 Reason for referral Completion of behavioral health assessment as part of process for weight-loss surgery. Precipitating Event Obesity and multiple physical/health issues. Living Situation Current Living Situation Rent At risk of losing current housing? No Satisfied with current living situation? Yes Comments PT lives with his girlfriend and step-son. Food/Weight/Diet Expectations of change Initial goal is to Patient goals are PT is implementing the following: Current meal plan: None. Exercise plan: None. History/Relationship with food Example of meals before starting the program: Breakfast: Lunch: Dinner: Snacks: Drinks/Liquids: History/Relationship with weight In the last 10 years, the patient's Lowest weight was and highest Social History Family history and relationship 8 years ago. He has 3 children they are 27, 244 and 16). He has been with current girlfriends 3 years ago, they live together and her 10 y/o son. Father alive, mother . He has 6 siblings. PT repots he is not that close to his family. 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 Developmental history and status WNL. Social support girlfriend. Community support None. Presybeterian/Spirituality Islam. Cultural/Ethnic information PT was born and raised in [place]. Lived in [place] in the past. Been in [place] 7 years ago. Legal Involvement and History Current or historical involvement with the legal system? None reported. Education Highest grade completed 10th grade. Preferred learning style Visual Currently enrolled in educational program? No Interested in further educational program? 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 ) Wants help to find employment? No Meaningful activities Movies, video games. Financial Situation Describe current financial situation Comfortable Financial assistance? Food [employer] Service Service? No Mental Health and Addiction Treatment Current/Past substance abuse? No Comments Alcohol: socially. 1-2 drinks. 1 or less at month. Cigarettes/Tobacco: None Cannabis/Edibles: None. Current/Past addictive behavior concerns? No Psychiatric history PT denies ever been in mental health treatment like counseling, crisis or inpatient for mental health. There is no history and/or current concern about SI/Sa and self-harm or other harm. Medical and Physical Health Summary Additional Medical History not covered in history None additional to the ones on file (HBP, Type 2 diabetes, back issues) Sexual History concerns None reported. Physical exam in the last year? Yes Pain Screening Current pain? No Pain in the last few months? Yes Comments Hip and ankle issues. Medications Is the patient compliant with medications? Yes Does the patient have Freitas Guardian in place? Not applicable Does the patient use complimentary health approaches? No Trauma/Abuse History History of trauma? No Questionnaires Binge Eating Scale Group 1 A. I don't feel self-conscious about my wt. or body size when I'm with others. B. I feel concerned about how I look to others, but it normally does not make me fell disappointed with myself C. I do get self-conscious about my appearance and wt. which makes me feel disappointed in myself. D. I feel very self-conscious about my wt. and frequently I feel intense shame and disgust for myself. I try to avoid social contacts because of my self-consciousness. Response Group 1: B Group 2 A. I don't have any difficulty eating slowly in the proper manner. B. Although I seem to gobble down foods, I don't end up feeling stuffed because of eating to much. C. At times, I tend to eat quickly and then, I feel uncomfortably full afterwards. D. I have the habit of bolting down my food, without really chewing it. When this happens I usually feel uncomfortably stuffed because I've eaten to much. Response Group 2: B Group 3 A. I feel capable to control my eating urges when I want to. B. I feel like I have failed to control my eating more than the average person. C. I feel utterly helpless when it comes to feeling in control of my eating urges. D. Because I feel so helpless about controlling my eating I have become very desperate about trying to get control. Response Group 3: C Group 4 A. I don't have the habit of eating when I'm bored. B. I sometimes eat when I'm bored, but often I'm able to get busy and get my mind off food. C. I have a regular habit of eating when I'm bored, but occasionally, I can use some other activity to get my mind off eating. D. I have a strong habit of eating when I'm bored. Nothing seems to help me breath the habit. Response Group 4: D Group 5 A. I'm usually physically hungry when I eat something. B. Occasionally, I eat something on impulse even though I really am not hungry. C. I have the regular habit of eating foods, that I might not really enjoy, to satisfy a hungry feeling even though physically, I don't need the food. D. Although I'm not physically hungry, I get a hungry feeling in my mouth that only seems to be satisfied when I eat a food, like sandwich, that fills my mouth. Sometimes, when I eat the food to satisfy my mouth hunger, I then spit the food out so I won't gain weight. Response Group 5: B Group 6 A. I don't feel any guilt or self-hate after I overeat. B. After I overeat, occasionally I feel guilt or self-hate. C. Almost all the time I experience strong guilt or self-hate after I overeat. Response Group 6: B Group 7 A. I don't lose total control of my eating when dieting even after periods when I overeat. B. Sometimes when I eat a forbidden food on a diet, I feel like I blew it and eat even more. C. Frequently, I have the habit of saying to myself, I've blown it now, why not go all the way, when I overeat on a diet. When that happens I eat more. D. I have a regular habit of starting a strict diets for myself but I break the diets by going on an eating binge. My life seems to be either a feast or famine. Response Group 7: B Group 8 A. I rarely eat so much food that I feel uncomfortably stuffed afterwards. B. Usually about once a month, I each such a quantity of food, I end up feeling very stuffed. C. I have regular periods during the month when I eat large amounts of food, either at mealtime or at snacks. D. I eat so much food that I regularly feel quite uncomfortable after eating and sometimes a bit nauseous. Response Group 8: B Group 9 A. My level of calorie intake does not go up very high or go down very low on a regular basis. B. Sometimes after I overeat, I will try to reduce my caloric intake to almost nothing to compensate for the excess calories I've eaten. C. I have a regular habit of overeating during the night. It seems that my routine is not to be hungry in the morning but overeat in the evening. D. In my adult years, I have had week-long periods where I practically starve myself. This follows periods when I overeat. It seems I live a life of either feast or famine. Response Group 9: C Group 10 A. I usually am able to stop eating when I want to. I know when enough is enough. B. Every so often, I experience a compulsion to eat which I can't seem to control. C. Frequently, I experience strong urges to eat which I seem unable to control, but at other times I can control my eating urges. D. I feel incapable of controlling urges to eat. I have a fear of not being able to stop eating voluntarily. Response Group 10: B Group 11 A. I don't have any problem stopping eating when I feel full. B. I usually can stop eating when I feel full but occasionally overeat leaving me feeling uncomfortably stuffed. C. I have a problem stopping eating once I start and usually I feel uncomfortably stuffed after I eat a meal. D. Because I have a problem not being able to stop eating when I want, I sometimes have to induce vomiting to relieve my stuffed feeling. Response Group 11: C Group 12 A. I seem to eat just as much when I'm with others, Family social gatherings as when I'm by myself. B. Sometimes, when I'm with other persons, I don't eat as much as I want to eat because I'm self-conscious about my eating. C. Frequently, I eat only a small amount of food when others are present, because I'm very embarrassed about my eating. D. I feel so ashamed about overeating that I pick times to overeat when I know no one will see me. I feel like a closet eater. Response Group 12: A Group 13 A. I eat three meals a day with only an occasional between meal snack. B. I eat 3 meals a day, but I also normally snack between meals. C. When I am snacking heavily, I get in the habit of skipping regular meals. D. There are regular periods when I seem to be continually eating, with no planned meals. Response Group 13: D Group 14 A. I don't think much about trying to control unwanted eating urges. B. At least some of the time, I feel my thoughts are pre-occupied with trying to control my eating urges. C. I feel that frequently I spend much time thinking about how much I ate or about trying not to eat anymore. D. It seems to me that most of my waking hours are pre-occupied by thoughts about eating or not eating. I feel like I'm constantly struggling not to eat. Response Group 14: D Group 15 A. I don't think about food a great deal. B. I have strong craving for food but they last only for brief periods of time. C. I have days when I can't seem to think about anything else but food. D. Most of my days seem to be pre-occupied with thoughts about food. I feel like I live to eat. Response Group 15: C Group 16 A. I usually know whether or not I'm physically hungry. I take the right portion of food to satisfy me. B. Occasionally, I feel uncertain about knowing whether or not I'm physically hungry. A these times it's hard to know how much food I should take to satisfy me. C. Even though I might know how many calories I should eat, I don't have any idea what is a normal amount of food for me. Response Group 16: A Binge Eating Score: 24 Score less than 17 Minimal Risk Score between 18-26 Moderate Risk Score between 27-46 High Risk Assessment & Plan Assessment & Plan (1) Adjustment disorder, unspecified: Code(s): F43.20 - Adjustment disorder, unspecified Qualifiers: Adjustment disorder type: unspecified type Qualified Code(s): F43.20 - Adjustment disorder, unspecified Plan: PT will be see again 07/24/2024 to complete assessment. PHQ-9 will be administered and BES reviewed with client at next visit. Telehealth Telehealth Telehealth Platform: Dox[employer] Location of provider rendering services: other Location of patient: address on file Patient Identification confirmed using: Name, : Yes Telehealth method: voice only Patient verbally consented to treatment: Yes Patient verbally consented to billing insurance company: Yes Patient informed of any privacy concerns related to visit: Yes Minutes spent on Phone/Video with Pt.: 45 Coding Level of Care Code New Pt Tele Psytx >53 mins ([id number]) Patient Type New Diagnoses Adjustment disorder, unspecified type F43.20 Adjustment disorder type: unspecified type
== END ==
LOC: HO.HBST 10:46
PROVIDERS: PCP Internal Medicine; Visit Provider Counselor Mental Health
DX: F43.20 Adjustment disorder, unspecified (principal)
CPT/HCPCS: 90837

== ENCOUNTER → 2024-07-02 10:46 | Outpatient (BNVA) | payer MEDICARE, MEDICAID, SELFPAY | PROVIDERS: PCP Internal Medicine; Visit Provider Counselor Mental Health ==

== ENCOUNTER 2024-07-03 08:01 | Day surgery (SDC) | payer MEDICARE, MEDICAID, SELFPAY ==
[2024-07-01 08:35] VITALS: BMI 34.7
--- NOTE | 2024-07-02 09:10 | HO.ANESPROP2 ---
Documented by User: Mia Stinson NP 07/02/24 09:10 HPI - Anesthesia Eval Consult details Narrative: 44yo M for Upper Endoscopy PMF Active Problems Active Problems: All Active Problems Vitamin B12 deficiency (Acute) Vitamin D deficiency (Acute) DJD (degenerative joint disease) (Acute) GERD (gastroesophageal reflux disease) (Acute) Non-insulin dependent type 2 diabetes mellitus (Acute) Elevated cholesterol (Acute) HTN (hypertension) (Acute) BMI 34.0-34.9,adult (Acute) Obesity (Acute) Status post open reduction with internal fixation (ORIF) of fracture of ankle (Acute) Closed left ankle fracture (Acute) Past Medical History Medical History (Updated 07/03/24 @ 08:47 by Rohini Jerez MD) DJD (degenerative joint disease) GERD (gastroesophageal reflux disease) Non-insulin dependent type 2 diabetes mellitus BMI 34.0-34.9,adult Obesity Elevated cholesterol HTN (hypertension) Family History Family History Mother COPD (chronic obstructive pulmonary disease) Father COPD (chronic obstructive pulmonary disease) Daughter No problems noted. Daughter Hypoglycemia Son Depression Anxiety Family history of problems with anesthesia: No Surgical History Surgical History Status post open reduction with internal fixation (ORIF) of fracture of ankle Hx of neck surgery History of total right hip replacement History of back surgery History of Problems with Anesthesia: No Social History Social History Alcohol intake: never Patient Tobacco Use Status: Never used Tobacco Use of substances other than those prescribed or required for medical reasons: No Have you been hit, kicked, punched, or otherwise hurt by someone within the past year? If so, by whom?: No Are you DNR?: No Advance Directives: No Advance Directives Information Provided: Yes Recently lost weight without trying: No Nutrition Risks: No Nutritional Risk Poor oral hygiene: No Current occupational status: employed Current occupation: [employer] Allergies Allergy/AdvReac Type Severity Reaction Status Date / Time No Known Allergies Allergy Verified 07/03/24 08:31 Home Medications ?Medication ?Instructions ?Recorded ?Confirmed ?Last Taken ?Type atorvastatin 20 mg tablet 20 mg PO DAILY 06/02/23 06/17/24 Unknown History enalapril maleate 20 mg tablet 20 mg PO BID 06/02/23 06/17/24 Unknown History gabapentin 600 mg tablet 600 mg PO TID 06/02/23 06/17/24 Unknown History ibuprofen 800 mg tablet 800 mg PO TID 06/02/23 06/17/24 Unknown History metformin 500 mg tablet,extended 500 mg PO BID 06/02/23 06/17/24 Unknown History release 24 hr Exam Height,Weight and Vital Signs: Height 6 ft 2 in Weight 122.47 kg Assessment and Plan Assessment Anesthesia Assessment: Chart Reviewed Final Anesthetic Review Family History of Problems with Anesthesia: No History of Problems with Anesthesia: No Documented by User: Rohini Jerez MD 07/03/24 10:45 [facility] Active Problems Active Problems: All Active Problems Vitamin B12 deficiency (Acute) Vitamin D deficiency (Acute) DJD (degenerative joint disease) (Acute) GERD (gastroesophageal reflux disease) (Acute) Non-insulin dependent type 2 diabetes mellitus (Acute) Elevated cholesterol (Acute) HTN (hypertension) (Acute) Obesity BMI 35.7 Status post open reduction with internal fixation (ORIF) of fracture of ankle (Acute) Denies RAJI Past Medical History Medical History (Updated 07/03/24 @ 08:47 by Rohini Jerez MD) DJD (degenerative joint disease) GERD (gastroesophageal reflux disease) Non-insulin dependent type 2 diabetes mellitus BMI 34.0-34.9,adult Obesity Elevated cholesterol HTN (hypertension) Family History Family History Mother COPD (chronic obstructive pulmonary disease) Father COPD (chronic obstructive pulmonary disease) Daughter No problems noted. Daughter Hypoglycemia Son Depression Anxiety Family history of problems with anesthesia: No Surgical History Surgical History Status post open reduction with internal fixation (ORIF) of fracture of ankle Hx of neck surgery History of total right hip replacement History of back surgery History of Problems with Anesthesia: No Social History Social History Alcohol intake: never Patient Tobacco Use Status: Never used Tobacco Use of substances other than those prescribed or required for medical reasons: No Have you been hit, kicked, punched, or otherwise hurt by someone within the past year? If so, by whom?: No Are you DNR?: No Advance Directives: No Advance Directives Information Provided: Yes Recently lost weight without trying: No Nutrition Risks: No Nutritional Risk Poor oral hygiene: No Current occupational status: employed Current occupation: [employer] Allergies Allergy/AdvReac Type Severity Reaction Status Date / Time No Known Allergies Allergy Verified 07/03/24 08:31 Home Medications ?Medication ?Instructions ?Recorded ?Confirmed ?Last Taken ?Type atorvastatin 20 mg tablet 20 mg PO DAILY 06/02/23 06/17/24 Unknown History enalapril maleate 20 mg tablet 20 mg PO BID 06/02/23 06/17/24 Unknown History gabapentin 600 mg tablet 600 mg PO TID 06/02/23 06/17/24 Unknown History ibuprofen 800 mg tablet 800 mg PO TID 06/02/23 06/17/24 Unknown History metformin 500 mg tablet,extended 500 mg PO BID 06/02/23 06/17/24 Unknown History release 24 hr Exam Height,Weight and Vital Signs: Height 6 ft 2 in Weight 122.47 kg Vital Signs Temp Pulse Resp BP Pulse Ox O2 Del Method 07/03/24 08:42 97.4 F 81 16 143/89 H 96 Room Air Pertinent Lab Results Pertinent Lab Results: Lab Results 07/03/24 Range/Units 08:48 POC Glucose 140 H (60-115) mg/dL Airway Mallampati Class: III TM Dist: >3cm Neck ROM: Limited (Cervical surgery) Partial: Lower Loose/Missing/Broken Teeth: Yes (Partial dentures bottom. Missing some teeth top. Denies broken or loose teeth) Heart: RRR Lungs: CTAB Assessment and Plan Assessment Anesthesia Assessment: Anesthesia Plan Discussed and Chart Reviewed Final Anesthetic Review Family History of Problems with Anesthesia: No History of Problems with Anesthesia: No NPO: Yes ASA Class: III Final Preanesthetic Review: No Changes in Pt Med Stat, Meds/Allgs Chart Reviewed, Consent Obtained/Reviewed and Anes Risks/Benef Reviewed Patient Risk: Intermediate Procedure Risk: Low Assessment/Block/Sedation in SS: Assess/Block/Sedation-SS Anesthetic Plan Anesthetic Plan: TIVA Disposition: Standard PACU
[2024-07-03 08:26] VITALS: BMI 35.7
[2024-07-03 08:42] VITALS: BP 143/89; PULSE 81; RESP 16; TEMP 36.3; O2SAT 96
[2024-07-03 08:51] LABS: Glucose, Whole Blood 140 mg/dL (60-115)
--- NOTE | 2024-07-03 10:41 | MHC.SHP ---
Pre-Procedural Eval Section A - 24 Hr Update-Section A only Date of Service: 07/03/24 The patient is an INPATIENT: No The patient has been examined within 24 hours of the surgical procedure. The History & Physical has been completed within 30 days and I have reviewed it.: Yes Section B - Complete if H&P > 30 days Chief Complaint: Morbid (severe) obesity due to excess calories Details of Present Illness: GERD Relevant Family History (Specify if Yes): No Relevant Social History: None Present Medications: None Medical History: No relevant PMH History of Previous Operations: No relevant previous surgery Allergies: Allergies Allergy/AdvReac Type Severity Reaction Status Date / Time No Known Allergies Allergy Verified 07/03/24 08:31 Review of Systems Sugical H&P ROS: Negative: Constitution, Cardiovascular, Respiratory, Neurological, Psychiatric, Hem-Onc, Allergic/Immunologic, Gastrointestinal, Genitourinary, Musculoskeletal, Integumentary, Endocrine and Eyes/Ears/Nose/Throat Exam Surgical H&P Exam: Normal: HEENT, Normal: Heart, Normal: Lungs, Normal: Extremities, Normal: Abdomen, Normal: Skin and Normal: Neurological Plan Diagnosis/Plan: Unchanged (EGD to assess etiology of GERD. Risks of bleeding and perforation were discussed with the patient and he is in agreement with the plan.) I have reviewed the history and physical and performed a pertinent physical examination on my patient. No changes have occurred unless specified. Time Spent With Patient Time: Total time managing care of this patient today ____ minutes.
--- NOTE | 2024-07-03 10:43 | P.BOP_ITS ---
Brief Operative Note Date of Service: 07/03/24 Pre-op diagnosis: GERD Post-op diagnosis: same (GERD, fixed diaphragmatic hernia, esophagitis, duodenitis) Procedure: PROCEDURE DATE: 07/03/2024 PREOPERATIVE DIAGNOSIS: GERD POSTOPERATIVE DIAGNOSIS: ?Same as above. 1) fixed moderate size hiatal hernia, 2) esophagitis, 3) duodenitis PROCEDURE: [id number] with biopsies Surgeon: ?Ronni Zavala M.D.. Ph.D. Credit Union Manager: None ? Anesthesia: IV sedation Estimated blood loss: ?Minimal FINDINGS AND PROCEDURE: ? OPERATIVE INDICATIONS: ?The patient is a 44 year old male known to me who is interested in bariatric surgery. The patient has GERD. Based on this information I recommended an upper endoscopy to evaluate the patient's symptoms. Risks and complications of the surgery were discussed with the patient in advance particularly the possibility of perforation or bleeding that may require surgical intervention. The patient understood the risks and was in agreement with the plan. ? PROCEDURE: After informed consent was obtained by the patient, the patient was ?transferred to the Operating Room and was placed in the supine position.? After successful induction of IV sedation, a mouth block was inserted and the patient was placed in the left lateral decubitus position. An upper endoscopy was performed next, the oropharynx and esophagus appeared within the normal limits. There was a 5cm fixed hiatal hernia. The z-line was irregular wiht tongues of gastric mucosa protruding circumferentially into the esophagus. Two biopsies were obtained from the distal esophagus 2-3 cm proximal to the GE junction and two additional biopsies from the GE junction. The stomach was entered and it appeared to be of normal size. There was no gastritis. There was no stricture or ulcer. A biopsy was obtained from the gastric fundus and the antrum. No significant bleeding was noted from any of the biopsy sites. Retroflexion of the scope confirmed the presence of the diaphragmatic hernia. The scope was then advanced into the duodenum. There was erythema suggestive of duodenitis. A biopsy was obtained. At that point the duodenum ?and the stomach were decompressed and the scope was withdrawn from the patient's mouth. The patient extubated and was transferred in stable condition to the Recovery Room for further care. I was present and performed all steps of the procedure. There were no residents to assist with this case. Ronni Zavala M.D., Ph.D. Surgeon: Uri Zavala MD Anesthesia: MAC Was an Credit Union Manager used for this Procedure?: No Estimated blood loss (mL): 0 IV fluids (mL): 400 Urine output (mL): 0 (No [place] to record output) Pathology: other (1) antrum x1, 2) fundus x1, 3) GE junction x2, 4) distal esophagus x2, 5) duodenum x1) Condition: stable Disposition: PACU
[2024-07-03 11:20] VITALS: BP 121/83; PULSE 84; RESP 16; TEMP 36.6; O2SAT 96
[2024-07-03 11:35] VITALS: BP 128/86; PULSE 66; RESP 16; TEMP 36.3; O2SAT 96
== END 2024-07-03 12:06 | disposition home or self-care (01) ==
PROVIDERS: PCP Nurse Practitioner Family; Visit Provider Surgery
PROC: 0DJ08ZZ Inspection of Upper Intestinal Tract, Via Natural or Artificial Opening Endoscopic (ICD-10-PCS; CPT 43235; principal; 2024-07-03 10:10)
DX: E66.01 Morbid (severe) obesity due to excess calories (principal); Z68.35 Body mass index [BMI] 35.0-35.9, adult; K21.9 Gastro-esophageal reflux disease without esophagitis; K22.89 Other specified disease of esophagus; K20.80 Other esophagitis without bleeding; K29.80 Duodenitis without bleeding; K44.9 Diaphragmatic hernia without obstruction or gangrene; I10 Essential (primary) hypertension; E78.00 Pure hypercholesterolemia, unspecified; E11.9 Type 2 diabetes mellitus without complications; Z79.1 Long term (current) use of non-steroidal anti-inflammatories (NSAID); Z79.899 Other long term (current) drug therapy; Z98.890 Other specified postprocedural states
CPT/HCPCS: 43239; 82947; 88305; 88342; J1596; J2003; J2704

== ENCOUNTER → 2024-07-03 08:01 | Outpatient (BNV) | payer MEDICARE, MEDICAID, SELFPAY | PROVIDERS: PCP Nurse Practitioner Family; Visit Provider Surgery | DX: K44.0 Diaphragmatic hernia with obstruction, without gangrene (principal) | CPT/HCPCS: 43239 ==

== ENCOUNTER 2024-07-04 09:06 | Outpatient (REF) | payer MEDICARE, MEDICAID, SELFPAY | END 2024-07-04 09:07 | disposition home or self-care (01) | LOC: HO.US 09:06 | PROVIDERS: PCP Nurse Practitioner Family; Visit Provider Surgery | DX: E66.9 Obesity, unspecified (principal); Z68.34 Body mass index [BMI] 34.0-34.9, adult; E11.9 Type 2 diabetes mellitus without complications; E78.00 Pure hypercholesterolemia, unspecified; I10 Essential (primary) hypertension; K21.9 Gastro-esophageal reflux disease without esophagitis | CPT/HCPCS: 76700; 76981 ==

== ENCOUNTER → 2024-07-24 10:59 | Outpatient (AMB) | payer MEDICARE, MEDICAID, SELFPAY ==
--- NOTE | 2024-07-24 10:30 | MHC.WMTHER ---
Intake Intake Visit Reasons: TV BH F/U Allergies No Known Allergies Allergy (Verified 07/03/24 08:31) [facility] Medical History (Updated 07/08/24 @ 18:08 by Uri Zavala MD) DJD (degenerative joint disease) GERD (gastroesophageal reflux disease) Non-insulin dependent type 2 diabetes mellitus BMI 34.0-34.9,adult Obesity Elevated cholesterol HTN (hypertension) Surgical History Status post open reduction with internal fixation (ORIF) of fracture of ankle Hx of neck surgery History of total right hip replacement History of back surgery Family History Mother COPD (chronic obstructive pulmonary disease) Father COPD (chronic obstructive pulmonary disease) Daughter No problems noted. Daughter Hypoglycemia Son Depression Anxiety Social History Alcohol intake: never Patient Tobacco Use Status: Never used Tobacco Current occupational status: employed Current occupation: [employer] Assessment Weight Management Therapy Therapy Notes Details PT is a 44 years old years old male, who presents for a second visit to complete BH assessment as part of surgical weight loss program. PT denied any history of mental health treatment and or past hospitalization/crisis for behavioral health. Also, denies any history or recent safety concerns around SI/SA and/or self-harm/other-harm, also there is no history of substance use reported. There is also no evidence of active stress/emotional-eating, and scores from BES suggest low-moderate risk for binge eating behavior. PHQ- scores also showed no active symptoms/concerns with depression. On the other hand, mental status exam is within normal limits, suggesting person's functioning is not impaired. PT has been advised to discuss with provider weight-loss expectations and to clarify meal plan. He was educated in importance to follow instructions in terms of meal/exercise plan and post-op instructions to decrease any post-op complications. PT was also educated on the relationship in between [id number] and the need to include new healthy behaviors in life to develop new but healthier habits and have a long-term weight-loss. At this time patient is cleared from the behavioral health standpoint. He will follow up with this provider after surgery for support. Presenting Concerns Referral Source WMP-provider. PT had initial visit with Dr. Chen on 06/17/2024 Reason for referral Completion of behavioral health assessment as part of process for weight-loss surgery. Precipitating Event Obesity and multiple physical/health issues. Living Situation Current Living Situation Rent At risk of losing current housing? No Satisfied with current living situation? Yes Comments PT lives with his girlfriend and step-son. Food/Weight/Diet Expectations of change PT wants weight-loss surgery. He denies been told of any weight-loss pre-op. He hopes to be more active, feel better and healthier. Initial weight: 270Lbs Most recent weight: 276.8Lbs PT is implementing the following: Current meal plan: 1 shake at noon, 1 meal (small portions. Combination of carbs/protein and rice), 2 protein bars. Exercise plan: outdoor Walking, he does about a mile, not tracking calories. History/Relationship with food PT reports he tends to rely on fast food when working, specially on the days he's late for work. before starting the program he was having 2 meals at day only. Breakfast and dinner. Mostly skipped meals as he was not hungry. When had lunch then wouldn't have dinner. During the day he was snacking on things like a soda, chocolate. Denies using food to lift his mood or praise him after a good day. Reports stress-eating once a while. Usually repeating dinner. Example of meals before starting the program: Breakfast: breakfast sandwich (egg, ham and cheese) with a soda. Lunch: skip Dinner: Home made, Kae-rican style. Soup, rice/pork/beans, pasta/lasagna. Snacks: mainly after dinner. donuts, chocolate, corn flakes. Drinks/Liquids: 3 cans of soda at day, 2-3 bottles of water. History/Relationship with weight PT reports he has always been at a good weight. He started realizing he was overweight or in need to make a change about 2 years ago. In the last 10 years, the patient's Lowest weight was 237Lbs and highest 289Lbs PT reports he has some family members who are obese. History/Relationship with dieting Small portions, eat more veggies/salad. Go for walks. Binge Eating Do you frequently eat large amounts of food in short periods of time, not feeling physically hungry? Yes Do you feel out of control when you eat a large amount of food in a short period of time? Yes Do you eat large amounts of food rapidly and typically alone? No Night Eating Do you wake up at least once during the night to eat? No If you wake up in the night, do you find that it is necessary to eat something in order to fall back asleep? No Do you have little or no appetite in the morning and feel very hungry in the evening, often overeating between dinner and when you go to bed? No Social History Family history and relationship 8 years ago. He has 3 children they are 27, 244 and 16). He has been with current girlfriends 3 years ago, they live together and her 10 y/o son. Father alive, mother . He has 6 siblings. PT repots he is not that close to his family. 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 Developmental history and status WNL. Social support girlfriend who also had bariatric surgery. Community support None. Temple/Spirituality Christianity. Cultural/Ethnic information PT was born and raised in [place]. Lived in [place] in the past. Been in [place] 7 years ago. Legal Involvement and History Current or historical involvement with the legal system? None reported. Education Highest grade completed 10th grade. Preferred learning style Visual Currently enrolled in educational program? No Interested in further educational program? No Educational Interests/Skills [employer]. 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 ) Wants help to find employment? No Meaningful activities Movies, video games. Financial Situation Describe current financial situation Comfortable Financial assistance? Food [place] Service Service? No Mental Health and Addiction Treatment Current/Past substance abuse? No Comments Alcohol: socially. 1-2 drinks. 1 or less at month. Cigarettes/Tobacco: None Cannabis/Edibles: None. Current/Past addictive behavior concerns? No Psychiatric history PT denies ever been in mental health treatment like counseling, crisis or inpatient for mental health. There is no history and/or current concern about SI/Sa and self-harm or other harm. Medical and Physical Health Summary Additional Medical History not covered in history None additional to the ones on file (HBP, Type 2 diabetes, back issues) Sexual History concerns None reported. Physical exam in the last year? Yes Pain Screening Current pain? No Pain in the last few months? Yes Comments Hip and ankle issues. Medications Is the patient compliant with medications? Yes Does the patient have [place] Guardian in place? Not applicable Does the patient use complimentary health approaches? No Trauma/Abuse History History of trauma? No Questionnaires PHQ-9 Over the last 2 weeks, how often have you been bothered by any of the following problems? 1. Little interest or pleasure in doing things: several days 2. Feeling down, depressed, or hopeless: several days (weather-related.) 3. Trouble falling or staying asleep, or sleeping too much: not at all 4. Feeling tired or having little energy: not at all 5. Poor appetite or overeating: not at all 6. Feeling bad about yourself - or that you are a failure or have let yourself or your family down: not at all 7. Trouble concentrating on things, such as reading the newspaper or watching television: not at all 8. Moving or speaking so slowly that other people could have noticed. Or the opposite - being so fidgety or restless that you have been moving around a lot more than usual: not at all 9. Thoughts that you would be better off or of hurting yourself in some way: not at all Total score: 2 Depression Screening Interpretation: Negative Depression Screening Done: Yes 29845 - PHQ-9 Billing: Yes Source: Developed by Drs. Gerardo Ortiz, Cristy Jerry, Josse Schaefer and colleagues, with an educational odette from [employer]. Binge Eating Scale Group 1 A. I don't feel self-conscious about my wt. or body size when I'm with others. B. I feel concerned about how I look to others, but it normally does not make me fell disappointed with myself C. I do get self-conscious about my appearance and wt. which makes me feel disappointed in myself. D. I feel very self-conscious about my wt. and frequently I feel intense shame and disgust for myself. I try to avoid social contacts because of my self-consciousness. Response Group 1: B Group 2 A. I don't have any difficulty eating slowly in the proper manner. B. Although I seem to gobble down foods, I don't end up feeling stuffed because of eating to much. C. At times, I tend to eat quickly and then, I feel uncomfortably full afterwards. D. I have the habit of bolting down my food, without really chewing it. When this happens I usually feel uncomfortably stuffed because I've eaten to much. Response Group 2: B Group 3 A. I feel capable to control my eating urges when I want to. B. I feel like I have failed to control my eating more than the average person. C. I feel utterly helpless when it comes to feeling in control of my eating urges. D. Because I feel so helpless about controlling my eating I have become very desperate about trying to get control. Response Group 3: C Group 4 A. I don't have the habit of eating when I'm bored. B. I sometimes eat when I'm bored, but often I'm able to get busy and get my mind off food. C. I have a regular habit of eating when I'm bored, but occasionally, I can use some other activity to get my mind off eating. D. I have a strong habit of eating when I'm bored. Nothing seems to help me breath the habit. Response Group 4: D Group 5 A. I'm usually physically hungry when I eat something. B. Occasionally, I eat something on impulse even though I really am not hungry. C. I have the regular habit of eating foods, that I might not really enjoy, to satisfy a hungry feeling even though physically, I don't need the food. D. Although I'm not physically hungry, I get a hungry feeling in my mouth that only seems to be satisfied when I eat a food, like sandwich, that fills my mouth. Sometimes, when I eat the food to satisfy my mouth hunger, I then spit the food out so I won't gain weight. Response Group 5: B Group 6 A. I don't feel any guilt or self-hate after I overeat. B. After I overeat, occasionally I feel guilt or self-hate. C. Almost all the time I experience strong guilt or self-hate after I overeat. Response Group 6: B Group 7 A. I don't lose total control of my eating when dieting even after periods when I overeat. B. Sometimes when I eat a forbidden food on a diet, I feel like I blew it and eat even more. C. Frequently, I have the habit of saying to myself, I've blown it now, why not go all the way, when I overeat on a diet. When that happens I eat more. D. I have a regular habit of starting a strict diets for myself but I break the diets by going on an eating binge. My life seems to be either a feast or famine. Response Group 7: B Group 8 A. I rarely eat so much food that I feel uncomfortably stuffed afterwards. B. Usually about once a month, I each such a quantity of food, I end up feeling very stuffed. C. I have regular periods during the month when I eat large amounts of food, either at mealtime or at snacks. D. I eat so much food that I regularly feel quite uncomfortable after eating and sometimes a bit nauseous. Response Group 8: B Group 9 A. My level of calorie intake does not go up very high or go down very low on a regular basis. B. Sometimes after I overeat, I will try to reduce my caloric intake to almost nothing to compensate for the excess calories I've eaten. C. I have a regular habit of overeating during the night. It seems that my routine is not to be hungry in the morning but overeat in the evening. D. In my adult years, I have had week-long periods where I practically starve myself. This follows periods when I overeat. It seems I live a life of either feast or famine. Response Group 9: C Group 10 A. I usually am able to stop eating when I want to. I know when enough is enough. B. Every so often, I experience a compulsion to eat which I can't seem to control. C. Frequently, I experience strong urges to eat which I seem unable to control, but at other times I can control my eating urges. D. I feel incapable of controlling urges to eat. I have a fear of not being able to stop eating voluntarily. Response Group 10: B Group 11 A. I don't have any problem stopping eating when I feel full. B. I usually can stop eating when I feel full but occasionally overeat leaving me feeling uncomfortably stuffed. C. I have a problem stopping eating once I start and usually I feel uncomfortably stuffed after I eat a meal. D. Because I have a problem not being able to stop eating when I want, I sometimes have to induce vomiting to relieve my stuffed feeling. Response Group 11: C Group 12 A. I seem to eat just as much when I'm with others, Family social gatherings as when I'm by myself. B. Sometimes, when I'm with other persons, I don't eat as much as I want to eat because I'm self-conscious about my eating. C. Frequently, I eat only a small amount of food when others are present, because I'm very embarrassed about my eating. D. I feel so ashamed about overeating that I pick times to overeat when I know no one will see me. I feel like a closet eater. Response Group 12: A Group 13 A. I eat three meals a day with only an occasional between meal snack. B. I eat 3 meals a day, but I also normally snack between meals. C. When I am snacking heavily, I get in the habit of skipping regular meals. D. There are regular periods when I seem to be continually eating, with no planned meals. Response Group 13: D Group 14 A. I don't think much about trying to control unwanted eating urges. B. At least some of the time, I feel my thoughts are pre-occupied with trying to control my eating urges. C. I feel that frequently I spend much time thinking about how much I ate or about trying not to eat anymore. D. It seems to me that most of my waking hours are pre-occupied by thoughts about eating or not eating. I feel like I'm constantly struggling not to eat. Response Group 14: D Group 15 A. I don't think about food a great deal. B. I have strong craving for food but they last only for brief periods of time. C. I have days when I can't seem to think about anything else but food. D. Most of my days seem to be pre-occupied with thoughts about food. I feel like I live to eat. Response Group 15: C Group 16 A. I usually know whether or not I'm physically hungry. I take the right portion of food to satisfy me. B. Occasionally, I feel uncertain about knowing whether or not I'm physically hungry. A these times it's hard to know how much food I should take to satisfy me. C. Even though I might know how many calories I should eat, I don't have any idea what is a normal amount of food for me. Response Group 16: A Binge Eating Score: 24 Score less than 17 Minimal Risk Score between 18-26 Moderate Risk Score between 27-46 High Risk Assessment & Plan Assessment & Plan (1) Adjustment disorder, unspecified: Code(s): F43.20 - Adjustment disorder, unspecified Plan PT has been cleared from standpoint. He will be seem 4 wks PO for follow up and support. Telehealth Telehealth Telehealth Platform: [facility] Location of provider rendering services: other Location of patient: address on file Patient Identification confirmed using: Name, : Yes Telehealth method: voice only Patient verbally consented to treatment: Yes Patient verbally consented to billing insurance company: Yes Patient informed of any privacy concerns related to visit: Yes Minutes spent on Phone/Video with Pt.: 45 Coding Level of Care Code Established Pt Tele Psytx 45 mins ([id number]) Patient Type Established Diagnoses Adjustment disorder, unspecified F43.20 Additional Codes PHQ-9 - 55586 - PHQ-9 Billing: Yes ([id number]) Time Spent (min) 45 Comment Start time: 10:15 - End time: 11am
== END ==
LOC: HO.HBST 10:59
PROVIDERS: PCP Nurse Practitioner Family; Visit Provider Counselor Mental Health
DX: F43.20 Adjustment disorder, unspecified (principal)
CPT/HCPCS: 90834

== ENCOUNTER → 2024-07-24 10:59 | Outpatient (BNVA) | payer MEDICARE, MEDICAID, SELFPAY | PROVIDERS: PCP Nurse Practitioner Family; Visit Provider Counselor Mental Health ==

== ENCOUNTER 2024-08-12 08:04 | Outpatient (AMB) | payer MEDICARE, MEDICAID, SELFPAY ==
--- NOTE | 2024-08-12 13:38 | MHC.OFFVISWM ---
VS Expanded 08/12/24 13:44 Height 6 ft 2 in Weight 272 lb 5 oz BMI 35.0 Body Fat % 35.4 Body Fat Mass 96.2 Fat Free Mass 175.6 Visceral Fat Rating 17 Body Water % 46.7 Body Water Mass 126.9 Basal Metabolic Rate/Score 2,091 Intake Visit Reasons: TV Pre Op LSG 08/21/24 Allergies No Known Allergies Allergy (Verified 08/12/24 13:40) Medication List - Last Reconciled 08/12/24 by Uri Zavala MD atorvastatin 20 mg PO DAILY cholecalciferol (vitamin D3) 125 mcg PO DAILY enalapril maleate 20 mg PO BID gabapentin 600 mg PO TID ibuprofen 800 mg PO TID PRN [Kneeling Scooter duration: lifetime] mecobalamin (vitamin B12) 1,000 mcg sublingual DAILY metformin ER 500 mg PO QAM ondansetron 4 mg PO Q12H pantoprazole 40 mg PO DAILY pantoprazole 40 mg PO DAILY polyethylene glycol 3350 17 grams PO DAILY sucralfate 10 mL PO BID vitamin A palmitate 10,000 units PO DAILY PFSH Medical History (Updated 08/12/24 @ 13:54 by Uri Zavala MD) Pre-diabetes DJD (degenerative joint disease) GERD (gastroesophageal reflux disease) Non-insulin dependent type 2 diabetes mellitus BMI 34.0-34.9,adult Obesity Elevated cholesterol HTN (hypertension) Surgical History (Updated 08/08/24 @ 10:21 by Verito Jett, RN) History of esophagogastroduodenoscopy (EGD) (07/03/24) Status post open reduction with internal fixation (ORIF) of fracture of ankle Hx of neck surgery History of total right hip replacement History of back surgery Family History Mother COPD (chronic obstructive pulmonary disease) Father COPD (chronic obstructive pulmonary disease) Daughter No problems noted. Daughter Hypoglycemia Son Depression Anxiety Social History Are you a primary pediatric critical care nurse to a significant other at home: No Do you presently have visiting nurse or other home services: No Alcohol intake: never Patient Tobacco Use Status: Never used Tobacco Current occupational status: employed Current occupation: [employer] [place] Physical Exam Vital Signs: BMI result Body Mass Index 35.0 Assessment & Plan Assessment & Plan (1) Obesity: Code(s): E66.9 - Obesity, unspecified Category: Medical Qualifiers: Body mass index: BMI 35.0-35.9 Obesity classification: adult class 2 (BMI 35 - 39.9) Obesity type: due to excess calories Serious obesity comorbidity presence: with serious comorbidity Qualified Code(s): E66.812 - Obesity, class 2; E66.01 - Morbid (severe) obesity due to excess calories; Z68.35 - Body mass index [BMI] 35.0-35.9, adult Plan: 1. Plan for lap sleeve gastrectomy including upper GI endoscopy. All tests has been completed and reviewed and the patient is cleared for the surgery. ?If diaphragmatic or ventral hernias are present at time of surgery, these will be repaired laparoscopically as well. Risks and complications were discussed in detail including possible conversion to an open procedure, anastomotic leak, bleeding requiring transfusion, small bowel obstruction, , DVT and pulmonary embolism, cardiac, or pulmonary complications, as mcc complications such as anastomotic ulcer, insufficient weight loss and vitamin deficiencies. I emphasized the importance of close follow-up, adherence to instructions and good communication. So far he has proven to be an excellent communicator and very compliant with all our directions accomplishing a great weight loss. I believe that he is an excellent candidate and he is ready. 2. Preop prescriptions were provided and explained the purpose of each one. Need to be purchased preop. Start Pantoprazole now as you get it from the pharmacy, 1 pill per day. Sucralfate and Zofran are for after surgery as needed. 3. Bowel prep: please do 7 packets ?of Miralax mixing each one with a an 8oz glass of water, crystal light, gatorade zero, or propel ?on 08/19/2024 and the same amount on 08/20/2024. The Miralax you begin with one packet at a time in 8oz water or crystal light, gatorade zero, or propel ?as early in the day as you can and you do them back to back until you finish them. Continue the protein shakes during ?the bowel prep. 4. Needs to purchase 1oz medicine cups . 5. Needs to purchase Children's liquid Tylenol for postop pain control. 6. He needs to stop as of tomorrow the Metformin and the Ibuprofen. Please also stop the Gabapentin on 08/17/24 (last pill that day). Avoid aspirin, motrin, Advil, Aleve, Meloxicam, Excedrin, Ibuprofen, Naproxyn. Tylenol is OK. 7. He needs to purchase the Celebrate multivitamins from the hospital's gift shop. 8. Will do basic preop blood work-up any day tomorrow 08/13/24 fasting for 12 hours and is scheduled to see the Anesthesiologist prior to the day of surgery. 9. Importance of adherence to postop folllow-up and recommendations was underscored and he understands that. 10. Stop food and bars as of tomorrow 08/13/2024 and continue with 3 Ensure Max protein shakes (4oz Ensure Max each mixed with 4oz almond milk) at 9am-11am, 12pm-2pm and 3pm-5pm and two more whole bottle Ensure Max protein shakes at 6pm-8pm and 9pm-11pm 11. No soups, broths or V8 12. The patient's?medical?history has been reviewed and they are considered low risk for post op DVT and therefore DVT prophylaxis is not considered necessary. Travel after surgery was reviewed. The patient has not disclosed any travel plans during the first 30 days after surgery and they have been advised that within the first 30 days after surgery any bus, plane, train or car travel over 2 hours in duration is contraindicated due to the possibility of developing blood clots from immobility. Any travel, needs to include periods of ambulation of 10 minutes in duration every 2 hours.? Patient was instructed to discuss any plans for travel during this period with their bariatric surgeon.? 13. As of tomorrow, please check your blood pressure daily in the morning. If your blood pressure is: Below 120/70: do not take the Enalapril 121/71 to 135/85: take HALF Enalapril Over 136/86: take the whole Enalparil 14. Please take at the day of surgery the following medications: Enalapril if the blood pressure that day is high enough to justify it based on the parameters at the previous bullet point. 15. Absolutely no smoking or vaping, or marijuana until the surgery and for at least the first 4 weeks. Only nicotine patches are allowed. 16. Send me weight measurements daily and then on Monday08/21/24, the day of surgery before you go to the hospital. 17. Avoid any steroids by mouth for any reason. Let me know if someone prescribes them to you 18. These instructions supersede anything else you read in the handbook, anything you watched in videos or classes or you were told by any other provider. If there is any conflict, you follow the above instructions and nothing else. Orders: Orders Comprehensive Met. Panel Today E66.01 - Morbid (severe) obesity due to excess calories, E66.812 - Obesity, class 2, E78.00 - Pure hypercholesterolemia, unspecified, I10 - Essential (primary) hypertension, Z68.35 - Body mass index [BMI] 35.0-35.9, adult Prothrombin Time INR Today E66.01 - Morbid (severe) obesity due to excess calories, E66.812 - Obesity, class 2, E78.00 - Pure hypercholesterolemia, unspecified, I10 - Essential (primary) hypertension, Z68.35 - Body mass index [BMI] 35.0-35.9, adult C Reactive Protein Today E66.01 - Morbid (severe) obesity due to excess calories, E66.812 - Obesity, class 2, E78.00 - Pure hypercholesterolemia, unspecified, I10 - Essential (primary) hypertension, Z68.35 - Body mass index [BMI] 35.0-35.9, adult Partial Thromboplastin Time Today E66.01 - Morbid (severe) obesity due to excess calories, E66.812 - Obesity, class 2, E78.00 - Pure hypercholesterolemia, unspecified, I10 - Essential (primary) hypertension, Z68.35 - Body mass index [BMI] 35.0-35.9, adult TSH reflex Free T4 Today E66.01 - Morbid (severe) obesity due to excess calories, E66.812 - Obesity, class 2, E78.00 - Pure hypercholesterolemia, unspecified, I10 - Essential (primary) hypertension, Z68.35 - Body mass index [BMI] 35.0-35.9, adult Type and Screen Today E66.01 - Morbid (severe) obesity due to excess calories, E66.812 - Obesity, class 2, E78.00 - Pure hypercholesterolemia, unspecified, I10 - Essential (primary) hypertension, Z68.35 - Body mass index [BMI] 35.0-35.9, adult Lipid Panel Today E66.01 - Morbid (severe) obesity due to excess calories, E66.812 - Obesity, class 2, E78.00 - Pure hypercholesterolemia, unspecified, I10 - Essential (primary) hypertension, Z68.35 - Body mass index [BMI] 35.0-35.9, adult Hemoglobin A1c Today E66.01 - Morbid (severe) obesity due to excess calories, E66.812 - Obesity, class 2, E78.00 - Pure hypercholesterolemia, unspecified, I10 - Essential (primary) hypertension, Z68.35 - Body mass index [BMI] 35.0-35.9, adult Complete Blood Count Auto Diff Today E66.01 - Morbid (severe) obesity due to excess calories, E66.812 - Obesity, class 2, E78.00 - Pure hypercholesterolemia, unspecified, I10 - Essential (primary) hypertension, Z68.35 - Body mass index [BMI] 35.0-35.9, adult Insulin Today E66.01 - Morbid (severe) obesity due to excess calories, E66.812 - Obesity, class 2, E78.00 - Pure hypercholesterolemia, unspecified, I10 - Essential (primary) hypertension, Z68.35 - Body mass index [BMI] 35.0-35.9, adult Medications: New pantoprazole 40 mg PO DAILY 90 tabs 0RF K21.9 - Gastro-esophageal reflux disease without esophagitis sucralfate 10 mL PO BID 600 mL 2RF K21.9 - Gastro-esophageal reflux disease without esophagitis ondansetron Only take one every 12 hours as needed if you have nausea 4 mg PO Q12H 20 tabs 0RF nausea and vomiting R11.0 - Nausea polyethylene glycol 3350 Mix each measuring cup with 8oz of water, Crystal light, or Gatorade zero, or Propel and do 7 measuring cups on 08/19/24 and another 7 measuring cups on 08/20/24 17 grams PO DAILY 238 grams 0RF K21.9 - Gastro-esophageal reflux disease without esophagitis
[2024-08-12 13:44] VITALS: BMI 35.0
== END 2024-08-12 17:06 | disposition home or self-care (01) ==
LOC: HO.HBS 08:04
PROVIDERS: PCP Nurse Practitioner Family; Visit Provider Surgery
DX: E66.812 Obesity, class 2 (principal); Z68.35 Body mass index [BMI] 35.0-35.9, adult
CPT/HCPCS: 99499

== ENCOUNTER → 2024-08-12 08:04 | Outpatient (BNVA) | payer MEDICARE, MEDICAID, SELFPAY | PROVIDERS: PCP Nurse Practitioner Family; Visit Provider Surgery ==

== ENCOUNTER 2024-08-28 08:24 | Outpatient (REF) | payer MEDICARE, MEDICAID, SELFPAY ==
--- NOTE | ~2024-08-28 | FL_ITS ---
EXAMINATION: XR FLUOROSCOPY UPPER GI WITH AIR CLINICAL INFORMATION: Preoperative evaluation prior to bariatric surgery COMPARISON: None TECHNIQUE: Fluoroscopic air contrast upper GI examination was performed utilizing standard techniques with thin and thick barium and effervescent granules. Numerous spot images were obtained. FINDINGS: Anterior and posterior cervical hardware are noted. Dual and single contrast images of the esophagus demonstrate normal caliber, contour, and mucosal pattern. No evidence of stricture, mass, or ulcerations identified. Esophageal peristalsis was normal. A small to moderate sized type I hiatal hernia is present. Significant gastroesophageal reflux is seen up to the thoracic inlet. Dual contrast and single contrast images of the stomach demonstrated normal contour and mucosal pattern without evidence of mass, ulceration, or other abnormality. Contrast freely passed into the gastric antrum and duodenal bulb without delay. Single and air-contrast images of the duodenal bulb demonstrate no abnormality. The duodenal sweep has a normal appearance, course, and mucosal fold appearance. The imaged proximal jejunum has a normal fold pattern and caliber. FLUOROSCOPY TIME: 3 minutes 2 seconds Number of Spot Images: 7 Number of Cine: 10 DOSE AREA PRODUCT: 2187 uGy-m2 (microgray-meter squared) FL/FL upper GI w air IMPRESSION: 1. Small to moderate-sized type I hiatal hernia with severe gastroesophageal reflux. 2. Status post multilevel cervical fusion. This procedure was performed by Santiago Anand PA-C, and supervised by Dr. Foreman Electronically signed by: Josué Foreman MD 08/29/2024 10:24 AM [facility] [place]
== END 2024-08-28 08:25 | disposition home or self-care (01) ==
LOC: HO.XRAY 08:24
PROVIDERS: PCP Nurse Practitioner Family; Visit Provider Surgery
DX: E66.9 Obesity, unspecified (principal); Z68.34 Body mass index [BMI] 34.0-34.9, adult; E11.9 Type 2 diabetes mellitus without complications; E78.00 Pure hypercholesterolemia, unspecified; I10 Essential (primary) hypertension; K21.9 Gastro-esophageal reflux disease without esophagitis
CPT/HCPCS: 74246

== ENCOUNTER → 2024-08-28 08:25 | Outpatient (BNV) | payer MEDICARE, MEDICAID, SELFPAY | PROVIDERS: PCP Nurse Practitioner Family; Visit Provider Physician Assistant Surgical | DX: E66.9 Obesity, unspecified (principal); Z68.34 Body mass index [BMI] 34.0-34.9, adult | CPT/HCPCS: 74246 ==

== ENCOUNTER 2024-09-23 07:58 | Outpatient (AMB) | payer MEDICARE, MEDICAID, SELFPAY ==
--- OUTSIDE RECORDS SUMMARY | 2024-09-23 08:00 | XMS_ITS | Clinical Summary ---
Author Organization [facility] ity Address [address] [place] [address] Care Team Providers Care Supervisor Receiving And Processing Name Role Phone Unavailable Primary Care Provider Unavailabl e Social History Tobacco Use Types Packs/Day Years Used Date Smoking Tobacco: Never Assessed Sex and Gender Information Value Date Recorded Sex Assigned at Not on file Legal Sex Male 4:56 PM EST Gender Identity Not on file Sexual Orientation Not on file Plan of Treatment Health Maintenance Due Date Last Done Comments DTaP,Tdap,and Td Vaccines (1 - Tdap) 1998 Hepatitis B Vaccines (1 of 3 - 19+ 3-dose series) 1998 Cholesterol Screening (Lipid Panel) 03/12/2024 Colorectal Cancer Screening: Colonoscopy 03/12/2024 Depression Screening 03/12/2024 HIV Screening 03/12/2024 Hepatitis C Screening 03/12/2024 Social Influencers of Health Screening 03/12/2024 COVID-19 Vaccine ( - 2023-2 5 season) 2024 Influenza Vaccine (#1) 2024 HIB Vaccines Aged Out No longer eligi ble based on patient's age to complete this topic HPV Vaccines Aged Out No longer eligi ble based on patient's age to complete this topic Hepatitis A Vaccines Aged Out No long er eligible based on patient's age to complete this topic IPV Vaccines Aged Out No longer eligi ble based on patient's age to complete this topic MMR Vaccines Aged Out No longer eligi ble based on patient's age to complete this topic Meningococcal ACWY Vaccine Aged Out N o longer eligible based on patient's age to complete this topic Pneumococcal Vaccine: Pediat rics (0 to 5 Years) and At-Risk Patients (6 to 64 Years) Aged Out No longer eligible b ased on patient's age to complete this topic RSV Immunization Patients Un michael 20 months Aged Out No longer eligible b ased on patient's age to complete this topic Varicella Vaccines Aged Out No longer eligible based on patient's age to complete this topic
--- OUTSIDE RECORDS SUMMARY | 2024-09-23 08:00 | XMS_ITS | Clinical Summary ---
Author Organization [facility] Address [address] [place] [address] Care Team Providers Care Director Bioinformatics Name Role Phone Emanuel Patel [facility] Primary Care Provider [phone] Source Comments PLEASE NOTE, if this patient is a minor, it may be UNLAWFUL to discuss sensitive information that is contained in these records (such as FAMILY PLANNING, MENTAL HEALTH or SUBSTANCE ABUSE) with the minor patient's parent or other person without the patient's specific authorization.[facility] Allergies No known active allergies Medications lancing device miscIndications: Diabetes mellitus without complication (HCC-CMS) 1 Device by miscellaneous route once daily 1 Each 1 10/15/19 21 Active blood-glucose meter monitoring kitIndications:D iabetes mellitus without complication ([facility]-CMS) as needed for blood glucose monitoring Dispense Freeystyle 1 Each 02/23/20 21 Active blood sugar diagnostic (FREESTYLE TEST) stripsIndication s:Diabetes mellitus without complication (HCC-CMS) 1 Each as needed for high blood sugar Check glucose once daily 100 Each 5 12/01/19 22 Active lancets (FREESTYLE LANCETS) 28 gaugeIndications :Diabetes mellitus without complication ([facility]-CMS) Check glucose once daily 100 Each 5 12/01/19 22 Active famotidine (PEPCID) 20 mg tabletIndication s:Dyspepsia TAKE 1 TABLET BY MOUTH TWICE DAILY NEEDED FOR HEARTBURN 60 Tablet 2 04/21/20 22 Active MISCELLANEOUS MEDICAL SUPPLY MISCIndications: Leg swelling Knee high compression stockings 15-20mm Hg to be used daily x 99 years dispense 2 pairs 2 Each 09/12/19 23 Active triamcinolone (KENALOG) 0.1 % cream Apply topically 2 (two) times daily 30 g 1 02/22/20 23 Active dextromethorphan -guaifenesin 10-200 mg capIndications:A cute cough Take 1-2 Tablets by mouth daily. (maximum: 4 tablets/24 hours) 30 Capsule 08/18/19 24 Active fluticasone (FLONASE) 50 mcg/actuation nasal sprayIndications :Nasal congestion Place 1 [place] in both nostrils once daily for 14 days 16 g 2 08/18/19 24 Active methylPREDNISolo ne (MEDROL DOSPAK) 4 mg tablet packIndications: Acute bronchitis with bronchospasm Follow package directions. 1 Packet 08/18/19 24 Active albuterol HFA 90 mcg/actuation inhalerIndicatio ns:Acute bronchitis with bronchospasm Inhale 2 Puffs into the lungs every 6 (six) hours as needed for wheezing or shortness of breath 18 g 1 08/18/19 24 Active scopolamine (TRANSDERM-SCOP) 1 mg over 3 days patchIndications :Sea sickness, initial encounter Place 1 Patch onto the skin every third day (every 72 hours) 10 Patch 03/14/20 24 Active alcohol swabsIndications :Diabetes mellitus without complication ([facility]-CMS) Use to test blood glucose once daily. 100 Each 3 03/16/20 24 Active gabapentin (NEURONTIN) 600 mg tabletIndication s:Chronic bilateral low back pain with left-sided sciatica Take 1 Tablet by mouth 3 (three) times daily 90 Tablet 3 05/01/20 24 Active ibuprofen 800 mg tabletIndication s:Chronic bilateral low back pain with left-sided sciatica Take 1 Tablet by mouth 3 (three) times daily as needed for pain 90 Tablet 2 05/01/20 24 Active metFORMIN XR (GLUCOPHAGE-XR) 500 mg 24 hr tabletIndication s:Diabetes mellitus without complication (HCC-CMS) TAKE 1 TABLET BY MOUTH TWICE A DAY 180 Tablet 06/26/20 24 Active atorvastatin (LIPITOR) 20 mg tablet TAKE 1 TABLET BY MOUTH EVERY DAY 90 Tablet 07/02/20 24 Active enalapril (VASOTEC) 20 mg tabletIndication s:Essential hypertension TAKE 1 TABLET BY MOUTH TWICE A DAY 180 Tablet 08/05/20 24 Active Active Problems Problem Noted Date Diagnosed Date Bilateral carpal tunnel syndrome 11/30/2022 Post-nasal drip 08/04/2021 Class 2 severe obesity due t o excess calories with serious comorbidity and body mass index (BMI) of 37.0 to 37.9 in adult ([facility]) 08/04/2021 Diabetes mellitus without complication ([facility]) 07/20/2020 Chronic pain of right knee 07/16/2020 Overview (11/30/2022): chondromalacia on MRI in [place] 06/16/2016 Essential hypertension 07/16/2020 Subclinical hypothyroidism 07/16/2020 Chronic bilateral low back pain with bilateral s ciatica 07/16/2020 Overview (11/30/2022): Sees [facility] for injection Chronic hip pain, bilateral 07/16/2020 Overview (07/16/2020): Hx right hip replacement Immunizations Name Administration Dates Next Due Flu, Preservative Free 06/28/2022 Moderna COVID-19 Vaccine, re d cap blue label, 12+ Primary Series 11/30/2021,11/21/2020,10/23/2020 PNEUMOCOCCAL CONJUGATE PCV 20 (Prevnar) 04/03/20 23 PNEUMOCOCCAL POLYSACCHARIDE PPV23 11/30/2021 TDAP 11/30/2021 Family History Medical History Relation Name Comments No Known Problems Father Other Mother of emphyse ma Diabetes Sister No Known Problems Son 3 Relation Name Status Comments Father Alive Mother Sister Alive Son 3 Alive Social History Tobacco Use Types Packs/Day Years Used Date Smoking Tobacco: Never Smokeless Tobacco: Never Tobacco Cessation:Counseling Given: Not Answered Alcohol Use Standard Drinks/Week Comments Never 0 (1 standard drink = 0.6 oz pur e alcohol) Social Connections Answer Date Recorded Connectedness 0 07/20/2023 Financial Resource Strain Answer Date R ecorded Financial Resource Strain 0 2022 Stress Answer Date Recorded Stress 0 07/20/2023 Physical Activity Answer Date Recorded Physical Activity 0 07/16/2020 Food Insecurity Answer Date Recorded Food 0 07/20/2023 Transportation Needs Answer Date Record ed Transportation 0 07/20/2023 Housing Stability Answer Date Recorded Housing 0 07/20/2023 Safety and Environment Answer Date Jose rded Safety 0 07/20/2023 Utilities Answer Date Recorded Utilities 0 07/20/2023 Employment Answer Date Recorded Employment 0 07/16/2020 Sex and Gender Information Value Date Recorded Sex Assigned at Male 07/16/2020 6:49 AM PST Legal Sex Male 8:33 AM PDT Gender Identity Male 07/16/2020 6:49 AM PST Sexual Orientation Straight 07/16/2020 6: 49 AM PST Occupation Industry Job Start Date Job End Date disabled Not on file Not on file Not on file Last Filed Vital Signs Vital Sign Reading Time Taken Comments Blood Pressure 122/80 03/14/2024 9:30 AM EDT Pulse 88 03/14/2024 9:30 AM EDT Temperature 36.8 ??C (98.2 ??F) 03/14/2024 9:30 AM ED T Respiratory Rate 16 03/14/2024 9:30 AM EDT Oxygen Saturation 98% 10/18/2023 5:05 PM EST Inhaled Oxygen Concentration - - Weight 124.3 kg (274 lb) 03/14/2024 9:30 AM EDT Height 188 cm (6' 2 ) 03/14/2024 9:30 AM EDT Body Mass Index 35.18 03/14/2024 9:30 AM EDT Plan of Treatment Health Maintenance Due Date Last Done Comments Dental Examination 1979 Retinopathy Screening 1992 Imm-Hepatitis B (1 of 3 - 19 + 3-dose series) 1998 Diabetes Microalbumin (w/Creatinine) 08/04/2022 08/04/2021 Diabetes Foot Exam 12/01/2023 11/30/2022, 0 11/30/2021, 10/14/2020 Lipid Screening 12/01/2023 11/30/2022, 11/13, 08/04/2021, Additional history exists Medicare Annual Wellness Visit 12/01/2023 11/30/2022 , 11/30/2021 TSH Monitoring 12/01/2023 11/30/2022, 07/15, 07/16/2020 [id number] ( season) 2024 11/30/2021, 11/21/2020, 10/23/2020 Imm-Influenza (#1) 2024 06/28/2022 CT Colonography 2024 Colonoscopy 2024 Colorectal Cancer Screening 2024 FIT/gFOBT 2024 Fecal DNA 2024 Flexible Sigmoidoscopy 2024 Diabetes HbA1c 06/14/2024 03/14/2024, 11/12, 05/13/2022, Additional history exists Alcohol and Drug Screen 08/14/2024 03/14/20 24, 07/20/2023, 02/21/2023, Additional history exists Depression Annual Screen 08/14/2024 03/14/2024 Serum Creatinine 03/14/2025 03/14/2024, , 12/01/2021, Additional history exists Tobacco Screening 03/14/2025 03/14/2024 Imm-DTaP/Tdap/Td (2 - Td or Tdap) 12/01/2031 022 HIV Screening Completed 12/01/2021, 07/16/2020 Hepatitis C Screening Completed 12/01/2021 , 12/01/2021, 07/16/2020 Imm-Pneumococcal Completed 04/03/2023, 11/30/2021 Procedures Procedure Name Priority Date/Time Associated Diagnosis Comments CREATININE BLOOD Routine 03/14/2024 9:53 AM EDT Diabetes mellitus without complication (HCC-CMS) HEMOGLOBIN GLYCOSYLATED A1C Routine 03/14/2024 9:53 AM EDT Diabetes mellitus without complication (HCC-CMS) THYROID CASCADING REFLEX PANEL Routine 11/30/2022 4:12 PM EDT Diabetes mellitus without complication (HCC-CMS) LIPID PANEL Routine 11/30/2022 4:12 PM EDT Diabetes mellitus without complication (HCC-CMS) HIV 1/2 AG & AB W/RFLX (4TH GEN) Routine 12/01/2021 9:55 AM EDT Diabetes mellitus without complication (HCC-CMS) Essential hypertension HEPATITIS C AB W/RFLX HCV RNA, QT, RT PCR Routine 12/01/2021 9:55 AM EDT Diabetes mellitus without complication (HCC-CMS) Essential hypertension Other problems related to lifestyle MICROALBUMIN/CREATIN INE RATIO, URINE, RANDOM Routine 08/04/2021 12:11 PM EST Pre-operative clearance Diabetes mellitus without complication ([facility]) Essential hypertension Subclinical hypothyroidism from Last 3 Months or Most Recently Relevant to Health Maintenance Results * (ABNORMAL) HEMOGLOBIN GLYCOSYLATED A1C (03/14/2024 9:53 AM EDT) HEMOGLOBIN A1C 7.9(H) <5.7 % of total Hgb [email or web address] Comment: For someone without known diabetes, a hemoglobin A1c value of 6.5% or greater indicates that they may have diabetes and this should be confirmed with a follow-up test. For someone with known diabetes, a value <7% indicates that their diabetes is well controlled and a value greater than or equal to 7% indicates suboptimal control. A1c targets should be individualized based on duration of diabetes, age, comorbid conditions, and other considerations. Currently, no consensus exists regarding use of hemoglobin A1c for diagnosis of diabetes for children. ?? Blood Blood / Unknown 03/14/2024 9 :53 AM EDT 03/14/2024 9:53 AM EDT Elizabeth [employer] - 03/15/2024 4:38 AM EDT FASTING:YES us Justo HERNANDEZ[facility] LAB - BLOOD DRAW Edited R esult - Final [employer] [address] [place] [address], [facility] [address] [address] * CREATININE BLOOD (03/14/2024 9:53 AM EDT) CREATININE (blood) 0.91 0.60 - 1.29 mg/dL [email or web address] EGFR 107 > OR = 60 mL/min/1.7 3m2 [email or web address] Blood Blood / Unknown 03/14/2024 9 :53 AM EDT 03/14/2024 9:53 AM EDT Narrative [employer] - 03/15/2024 4:38 AM EDT FASTING:YES us [place] Emma EVENTS ASSISTANT-C LAB - BLOOD DRAW Final Re sult Performing Organization Address [facility]/ZIP Co de Phone Number [facility] [address] [address], [facility] [address] [address] * THYROID CASCADING REFLEX PANEL (11/30/2022 4:12 PM EDT) Pathologist [facility] TSH 2.06 0.40 - 4.50 mIU/L [facility] Blood Blood / Unknown 11/30/2022 4 :12 PM EDT 11/30/2022 4:12 PM EDT Emanuel Parkncourt EVENTS ASSISTANT LAB - BLOOD DRAW Edited R esult - Final Performing Organization Address [facility] Co de Phone Number [facility] [facility] [address] [address], [facility] [address] [address] * LIPID PANEL (11/30/2022 4:12 PM EDT) CHOLESTEROL, TOTAL 99 <200 mg/dL [facility] HDL CHOLESTEROL 49 > OR = 40 mg/dL [facility] TRIGLYCERIDES 70 <150 mg/dL [facility] LDL-CHOLESTEROL 35 99 mg/dL (calc) [facility] Comment: Reference range: <100 Desirable range <100 mg/dL for primary prevention; ?? <70 mg/dL for patients with CHD or diabetic patients with > or = 2 CHD risk factors. LDL-C is now calculated using the Vickey-Andrzej calculation, which is a validated novel method providing better accuracy than the Friedewald equation in the estimation of LDL-C. Vickey SS et al. CHAPARRITA. 2013;310(19): 7821-3538 (http://education.[employer]Follo/faq/KXS868) CHOL/HDLC RATIO 2.0 <5.0 (calc) [facility] NON-HDL CHOLESTEROL 50 <130 mg/dL (calc) [facility] Comment: For patients with diabetes plus 1 major ASCVD risk factor, treating to a non-HDL-C goal of <100 mg/dL (LDL-C of <70 mg/dL) is considered a therapeutic option. Blood Blood / Unknown 11/30/2022 4 :12 PM EDT 11/30/2022 4:12 PM EDT [facility] - BLOOD DRAW Final Re sult Performing Organization Address [facility]/ZIP Co de Phone Number [employer] [address] [address], [email or web address] [address] [address] * HEPATITIS C AB W/RFLX HCV RNA, QT, RT PCR (12/01/2021 9:55 AM EDT) Pathologist [facility] HEPATITIS C ANTIBODY NON-REACT ANURAG NON-REACT ANURAG [employer] [facility] SIGNAL TO CUT-OFF 0.02 <1.00 [facility] Comment: HCV antibody was non-reactive. There is no laboratory evidence of HCV infection. In most cases, no further action is required. However, if recent HCV exposure is suspected, a test for HCV RNA (test code 16515) is suggested. For additional information please refer to http://education.[employer]/faq/LKC32o6 (This link is being provided for informational/ educational purposes only.) Blood Blood / Unknown 12/01/2021 9 :55 AM EDT 12/01/2021 9:56 AM EDT Narrative [employer] [facility] - 12/02/2021 4:29 AM EDT FASTING:YES [facility] - BLOOD DRAW Edited R esult - Final Performing Organization Address [facility]/ZIP Co de Phone Number [employer] [facility] [address] [address], [email or web address] [address] [address] * HIV 1/2 AG & AB W/RFLX (4TH GEN) (12/01/2021 9:55 AM EDT) Pathologist [facility] HIV AG/AB, 4TH GEN NON-REAC TIVE NON-REAC TIVE [email or web address] Comment: HIV-1 antigen and HIV-1/HIV-2 antibodies were not detected. There is no laboratory evidence of HIV infection. PLEASE NOTE: This information has been disclosed to you from records whose confidentiality may be protected by state law. ??If your state requires such protection, then the state law prohibits you from making any further disclosure of the information without the specific written consent of the person to whom it pertains, or as otherwise permitted by law. A general authorization for the release of medical or other information is NOT sufficient for this purpose. ?? For additional information please refer to http://education.[employer]/faq/IHN492 (This link is being provided for informational/ educational purposes only.) The performance of this assay has not been clinically validated in patients less than 2 years old. Blood Blood / Unknown 12/01/2021 9 :55 AM EDT 12/01/2021 9:56 AM EDT Narrative [employer] - 12/02/2021 4:29 AM EDT FASTING:YES Emanuel Patel EVENTS ASSISTANT LAB - BLOOD DRAW Final Re sult [facility] [address] [address], [email or web address] [address] [address] * MICROALBUMIN/CREATININE RATIO, URINE, RANDOM (08/04/2021 12:11 PM EST) CREATININE, RANDOM URINE 233 20 - 320 mg/dL [email or web address] MICROALBUMIN 2.1 mg/dL [employer] [facility] [employer] Comment: Reference Range Not established MICROALBUMIN/CREA TININE RATIO, RANDOM URINE 9 <30 mcg/mg creat [email or web address] Comment: The ADA defines abnormalities in albumin excretion as follows: Albuminuria Category ?Result (mcg/mg creatinine) Normal to Mildly increased ?? <30 Moderately increased ? 30-299 Severely increased ? > OR = 300 The ADA recommends that at least two of three specimens collected within a 3-6 month period be abnormal before considering a patient to be within a diagnostic category. Urine Urine specimen / Unknown 08/04/2021 12:11 PM EST 08/04/2021 12:12 PM EST Laura Perrinlashanwradha EVENTS ASSISTANT-C LAB - NO BLOOD DRAW Virgen vianney Result [facility] [address] [address], [facility] [address] [address] from Last 3 Months or Most Recently Relevant to Health Maintenance Insurance [place] Care Teams Director Bioinformatics Relationship Specialty Start Date End Date Emanuel Patel FNP [address] [place] [address] PCP - General Family Medicine, CLINICAL SUPPORT NURSE 06/10/20
--- NOTE | 2024-09-23 09:15 | A.OFFVIS_ITS ---
Intake Visit Reasons: TV Pre Op LSG 10/03/2024 Allergies No Known Allergies Allergy (Verified 09/23/24 09:26) Medication List - Last Reconciled 09/23/24 by Uri Zavala MD atorvastatin 20 mg PO DAILY cholecalciferol (vitamin D3) 125 mcg PO DAILY enalapril maleate 20 mg PO BID gabapentin 600 mg PO TID ibuprofen 800 mg PO TID PRN [Kneeling Scooter duration: lifetime] mecobalamin (vitamin B12) 1,000 mcg sublingual DAILY metformin ER 500 mg PO QAM ondansetron 4 mg PO Q12H pantoprazole 40 mg PO DAILY pantoprazole 40 mg PO DAILY polyethylene glycol 3350 17 grams PO DAILY sucralfate 10 mL PO BID vitamin A palmitate 10,000 units PO DAILY HPI HPI TV Pre Op LSG 10/03/2024: Details: Start time: 9.02am, End time: 9.32am ?I spent 25 minutes speaking with the patient on the phone plus an additional 5 minutes reviewing and updating records for a total of 30 minutes HPI Comments Details: Overall weight loss: 29.4lbs, or 10.9% Is doing 4 Ensure Max protein shakes (4oz of Ensure mixed with 4oz almond milk) and one whole bottle of Ensure Max Exercise: walking outside [facility] Medical History (Updated 08/12/24 @ 13:54 by Uri Zavala MD) Pre-diabetes DJD (degenerative joint disease) GERD (gastroesophageal reflux disease) Non-insulin dependent type 2 diabetes mellitus BMI 34.0-34.9,adult Obesity Elevated cholesterol HTN (hypertension) Surgical History (Updated 08/08/24 @ 10:21 by Verito Jett RN) History of esophagogastroduodenoscopy (EGD) (07/03/24) Status post open reduction with internal fixation (ORIF) of fracture of ankle Hx of neck surgery History of total right hip replacement History of back surgery Family History Mother COPD (chronic obstructive pulmonary disease) Father COPD (chronic obstructive pulmonary disease) Daughter No problems noted. 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 [employer] [place] Telehealth Telehealth Telehealth Platform: Telephone Location of provider rendering services: practice address Location of patient: address on file Patient Identification confirmed using: Name, : Yes Telehealth method: voice only Patient verbally consented to treatment: Yes Patient verbally consented to billing insurance company: Yes Patient informed of any privacy concerns related to visit: Yes Minutes spent on Phone/Video with Pt.: 30 Assessment & Plan Assessment & Plan (1) Obesity: Code(s): E66.9 - Obesity, unspecified Category: Medical Qualifiers: Obesity type: due to excess calories Obesity classification: adult class 2 (BMI 35 - 39.9) Serious obesity comorbidity presence: with serious comorbidity Body mass index: BMI 35.0-35.9 Qualified Code(s): E66.812 - Obesity, class 2; E66.01 - Morbid (severe) obesity due to excess calories; Z68.35 - Body mass index [BMI] 35.0-35.9, adult Plan: 1. Plan for lap sleeve gastrectomy including upper GI endoscopy. All tests has been completed and reviewed and the patient is cleared for the surgery. ?If diaphragmatic or ventral hernias are present at time of surgery, these will be repaired laparoscopically as well. 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 I emphasized the importance of close follow-up, adherence to instructions and good communication. So far he has proven to be an excellent communicator and very compliant with all our directions accomplishing a great weight loss. I believe that he is an excellent candidate and he is ready. 2. Preop prescriptions were provided and explained the purpose of each one. Need to be purchased preop. Start Pantoprazole now as you get it from the pharmacy, 1 pill per day. Sucralfate and Zofran are for after surgery as needed. 3. Bowel prep: please do 7 packets ?of Miralax mixing each one with a an 8oz glass of water, crystal light, gatorade zero, or propel ?on 10/01/2024 and the same amount on 10/02/2024. The Miralax you begin with one packet at a time in 8oz water or crystal light, gatorade zero, or propel ?as early in the day as you can and you do them back to back until you finish them. Continue the protein shakes during ?the bowel prep. 4. Needs to purchase 1oz medicine cups . 5. Needs to purchase Children's liquid Tylenol for postop pain control. 6. He needs to stop as of tomorrow the Metformin and the Ibuprofen. Please also stop the Gabapentin on 09/28/24 (last pill that day). Avoid aspirin, motrin, Advil, Aleve, Meloxicam, Excedrin, Ibuprofen, Naproxyn. Tylenol is OK. 7. He needs to purchase the Celebrate multivitamins from the hospital's gift shop. 9. Importance of adherence to postop folllow-up and recommendations was underscored and he understands that. 10. continue to avoid food and bars and continue with 4 Ensure Max protein shakes (4oz Ensure Max each mixed with 4oz almond milk) at 9am-11am, 12pm-2pm, 3pm-5pm and 6pm-8pm and one more whole bottle Ensure Max protein shake at 9pm-11 pm 11. No soups, broths or V8 12. The patient's?medical?history has been reviewed and they are considered low risk for post op DVT and therefore DVT prophylaxis is not considered necessary. Travel after surgery was reviewed. The patient has not disclosed any travel plans during the first 30 days after surgery and they have been advised that within the first 30 days after surgery any bus, plane, train or car travel over 2 hours in duration is contraindicated due to the possibility of developing blood clots from immobility. Any travel, needs to include periods of ambulation of 10 minutes in duration every 2 hours.? Patient was instructed to discuss any plans for travel during this period with their bariatric surgeon.? 13. As of tomorrow, please check your blood pressure daily in the morning. If your blood pressure is: Below 120/70: do not take the Enalapril 121/71 to 135/85: take HALF Enalapril Over 136/86: take the whole Enalparil 14. Please take at the day of surgery the following medications: Enalapril if the blood pressure that day is high enough to justify it based on the parameters at the previous bullet point. 15. Absolutely no smoking or vaping, or marijuana until the surgery and for at least the first 4 weeks. Only nicotine patches are allowed. 16. Send me weight measurements daily and then on 10/03/24, the day of surgery before you go to the hospital. 17. Avoid any steroids by mouth for any reason. Let me know if someone prescribes them to you 18. These instructions supersede anything else you read in the handbook, anything you watched in videos or classes or you were told by any other provider. If there is any conflict, you follow the above instructions and nothing else. Orders: Orders Prothrombin Time INR Today E11.9 - Type 2 diabetes mellitus without complications, E66.01 - Morbid (severe) obesity due to excess calories, E66.812 - Obesity, class 2, I10 - Essential (primary) hypertension, K21.9 - Gastro- esophageal reflux disease without esophagitis, Z68.31 - Body mass index [BMI] 31.0-31.9, adult, Z68.35 - Body mass index [BMI] 35.0-35.9, adult Type and Screen Today E11.9 - Type 2 diabetes mellitus without complications, E66.01 - Morbid (severe) obesity due to excess calories, E66.812 - Obesity, class 2, I10 - Essential (primary) hypertension, K21.9 - Gastro-esophageal reflux disease without esophagitis, Z68.31 - Body mass index [BMI] 31.0-31.9, adult, Z68.35 - Body mass index [BMI] 35.0-35.9, adult Partial Thromboplastin Time Today E11.9 - Type 2 diabetes mellitus without complications, E66.01 - Morbid (severe) obesity due to excess calories, E66.812 - Obesity, class 2, I10 - Essential (primary) hypertension, K21.9 - Gastro- esophageal reflux disease without esophagitis, Z68.31 - Body mass index [BMI] 31.0-31.9, adult, Z68.35 - Body mass index [BMI] 35.0-35.9, adult Comprehensive Met. Panel Today E11.9 - Type 2 diabetes mellitus without complications, E66.01 - Morbid (severe) obesity due to excess calories, E66.812 - Obesity, class 2, I10 - Essential (primary) hypertension, K21.9 - Gastro- esophageal reflux disease without esophagitis, Z68.31 - Body mass index [BMI] 31.0-31.9, adult, Z68.35 - Body mass index [BMI] 35.0-35.9, adult TSH reflex Free T4 Today E11.9 - Type 2 diabetes mellitus without complications, E66.01 - Morbid (severe) obesity due to excess calories, E66.812 - Obesity, class 2, I10 - Essential (primary) hypertension, K21.9 - Gastro- esophageal reflux disease without esophagitis, Z68.31 - Body mass index [BMI] 31.0-31.9, adult, Z68.35 - Body mass index [BMI] 35.0-35.9, adult C Reactive Protein Today E11.9 - Type 2 diabetes mellitus without complications, E66.01 - Morbid (severe) obesity due to excess calories, E66.812 - Obesity, class 2, I10 - Essential (primary) hypertension, K21.9 - Gastro- esophageal reflux disease without esophagitis, Z68.31 - Body mass index [BMI] 31.0-31.9, adult, Z68.35 - Body mass index [BMI] 35.0-35.9, adult Lipid Panel Today E11.9 - Type 2 diabetes mellitus without complications, E66.01 - Morbid (severe) obesity due to excess calories, E66.812 - Obesity, class 2, I10 - Essential (primary) hypertension, K21.9 - Gastro-esophageal reflux disease without esophagitis, Z68.31 - Body mass index [BMI] 31.0-31.9, adult, Z68.35 - Body mass index [BMI] 35.0-35.9, adult Hemoglobin A1c Today E11.9 - Type 2 diabetes mellitus without complications, E66.01 - Morbid (severe) obesity due to excess calories, E66.812 - Obesity, class 2, I10 - Essential (primary) hypertension, K21.9 - Gastro-esophageal reflux disease without esophagitis, Z68.31 - Body mass index [BMI] 31.0-31.9, adult, Z68.35 - Body mass index [BMI] 35.0-35.9, adult Complete Blood Count Auto Diff Today E11.9 - Type 2 diabetes mellitus without complications, E66.01 - Morbid (severe) obesity due to excess calories, E66.812 - Obesity, class 2, I10 - Essential (primary) hypertension, K21.9 - Gastro- esophageal reflux disease without esophagitis, Z68.31 - Body mass index [BMI] 31.0-31.9, adult, Z68.35 - Body mass index [BMI] 35.0-35.9, adult Insulin Today E11.9 - Type 2 diabetes mellitus without complications, E66.01 - Morbid (severe) obesity due to excess calories, E66.812 - Obesity, class 2, I10 - Essential (primary) hypertension, K21.9 - Gastro-esophageal reflux disease without esophagitis, Z68.31 - Body mass index [BMI] 31.0-31.9, adult, Z68.35 - Body mass index [BMI] 35.0-35.9, adult
== END 2024-09-23 09:33 | disposition home or self-care (01) ==
LOC: HO.HBS 07:58
PROVIDERS: PCP Nurse Practitioner Family; Visit Provider Surgery
DX: E66.812 Obesity, class 2 (principal); Z68.35 Body mass index [BMI] 35.0-35.9, adult
CPT/HCPCS: 99499

== ENCOUNTER → 2024-09-27 09:58 | Outpatient (BNVA) | payer MEDICARE, MEDICAID, SELFPAY | PROVIDERS: PCP Nurse Practitioner Family; Visit Provider Physician Assistant Surgical ==

== ENCOUNTER 2024-09-27 10:38 | Outpatient (REF) | payer MEDICARE, MEDICAID, SELFPAY ==
[2024-09-27 11:09] LABS: MANUAL DIFF FLAG NO
--- OUTSIDE RECORDS SUMMARY | 2024-09-27 11:26 | XMS_ITS | Clinical Summary ---
Author Organization [facility] Address [address] [place] [address] Care Team Providers Care Clinical Application Manager Name Role Phone Emanuel Patel [facility] Primary Care Provider [phone] Source Comments PLEASE NOTE, if this patient [...] meter monitoring kitIndications:D iabetes mellitus without complication ([facility]) as needed for blood glucose monitoring Dispense Freeystyle 1 Each 02/23/20 21 Active blood sugar diagnostic (FREESTYLE TEST) stripsIndication s:Diabetes mellitus without complication ([facility]CC-CMS) 1 Each as needed for high blood sugar Check glucose once daily 100 Each 5 12/01/19 22 Active lancets (FREESTYLE LANCETS) 28 gaugeIndications :Diabetes mellitus without complication ([facility]) Check glucose once daily 100 Each [...] mcg/actuation nasal sprayIndications :Nasal congestion Place 1 [place] in both nostrils once daily for 14 [...] Active alcohol swabsIndications :Diabetes mellitus without complication ([facility]) Use to test blood glucose once [...] (BMI) of 37.0 to 37.9 in adult ([facility]) 08/04/2021 Diabetes mellitus without complication ([facility]) 07/20/2020 Chronic pain of right knee 07/16/2020 Overview (11/30/2022): 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) Essential hypertension Subclinical hypothyroidism from Last 3 Months or Most Recently Relevant to Health Maintenance Results * (ABNORMAL) HEMOGLOBIN GLYCOSYLATED A1C (03/14/2024 9:53 AM EDT) HEMOGLOBIN A1C 7.9(H) <5.7 % of total Hgb [employer] Comment: For someone without known diabetes, a [...] AM EDT 03/14/2024 9:53 AM EDT [facility] [employer] - 03/15/2024 4:38 AM EDT FASTING:YES us Justo HERNANDEZ[facility] - BLOOD DRAW Edited R esult - Final [employer] [address] [place] [id number], [email or web address] [address] [address] * CREATININE BLOOD (03/14/2024 9:53 AM EDT) CREATININE (blood) 0.91 0.60 - 1.29 mg/dL [employer] EGFR 107 > OR = 60 mL/min/1.7 3m2 [employer] Blood Blood / Unknown 03/14/2024 9 :53 AM EDT 03/14/2024 9:53 AM EDT Narrative [employer] - 03/15/2024 4:38 AM EDT FASTING:YES us [place] Emma MOTION PICTURE OPERATOR-C LAB - BLOOD DRAW Final Re sult Performing Organization Address [facility]/ZIP Co de Phone Number [facility] [address] [employer] [address] [address], [address] [address] * THYROID CASCADING REFLEX PANEL (11/30/2022 4:12 PM EDT) Pathologist [facility] TSH 2.06 0.40 - 4.50 mIU/L [facility] Blood Blood / Unknown 11/30/2022 4 :12 PM EDT 11/30/2022 4:12 PM EDT Emanuel Parkncourt MOTION PICTURE OPERATOR LAB - BLOOD DRAW Edited R esult - Final Performing Organization Address [email or web address]] Co de Phone Number [facility] [address] [employer] [address] [address], [address] [address] * LIPID PANEL (11/30/2022 4:12 PM EDT) CHOLESTEROL, TOTAL 99 <200 mg/dL [facility] HDL CHOLESTEROL 49 > OR = 40 mg/dL [facility] [address] [facility] TRIGLYCERIDES 70 <150 mg/dL [facility] [address] [facility] LDL-CHOLESTEROL 35 99 mg/dL (calc) [facility] Comment: Reference range: <100 Desirable range <100 mg/dL for primary prevention; ?? <70 mg/dL for patients with CHD or diabetic patients with > or = 2 CHD risk factors. LDL-C is now calculated using the Vickey-Andrzej calculation, which is a validated novel method providing better accuracy than the Friedewald equation in the estimation of LDL-C. Vickey SS et al. CHAPARRITA. 2013;310(19): 0572-0945 (http://education.MedPassage/faq/SAJ743) CHOL/HDLC RATIO 2.0 <5.0 (calc) [email or web address] [facility] NON-HDL CHOLESTEROL 50 <130 mg/dL (calc) [facility] Comment: For patients with diabetes plus 1 major ASCVD risk factor, treating to a non-HDL-C goal of <100 mg/dL (LDL-C of <70 mg/dL) is considered a therapeutic option. Blood Blood / Unknown 11/30/2022 4 :12 PM EDT 11/30/2022 4:12 PM EDT [facility] - [facility]OD [facility] Final Re sult Performing Organization Address [facility]/ZIP Co de Phone Number [employer] [address] [address], [employer] [address] [address] * HEPATITIS C AB W/RFLX HCV RNA, QT, RT PCR (12/01/2021 9:55 AM EDT) Pathologist [facility] HEPATITIS C ANTIBODY NON-REACT ANURAG NON-REACT ANURAG [facility] [address] [facility] SIGNAL TO CUT-OFF 0.02 <1.00 [email or web address] [facility] Comment: HCV antibody was non-reactive. There is no laboratory evidence of HCV infection. In most cases, no further action is required. However, if recent HCV exposure is suspected, a test for HCV RNA (test code 19701) is suggested. For additional information please refer to http://education.crowdSPRING/faq/PGH99d9 (This link is being provided for informational/ educational purposes only.) Blood Blood / Unknown 12/01/2021 9 :55 AM EDT 12/01/2021 9:56 AM EDT Narrative [employer] [facility] - 12/02/2021 4:29 AM EDT FASTING:YES [facility] - BLOOD DRAW Edited R esult - Final Performing Organization Address [facility]/ZIP Co de Phone Number [facility] [address] [facility] [address] [address], [employer] [address] [address] * HIV 1/2 AG & AB W/RFLX (4TH GEN) (12/01/2021 9:55 AM EDT) Pathologist [facility] HIV AG/AB, 4TH GEN NON-REAC TIVE NON-REAC TIVE [employer] Comment: HIV-1 antigen and HIV-1/HIV-2 antibodies were [...] ?? For additional information please refer to http://education.crowdSPRING/faq/NZG590 (This link is being provided for informational/ educational purposes only.) The performance of this assay has not been clinically validated in patients less than 2 years old. Blood Blood / Unknown 12/01/2021 9 :55 AM EDT 12/01/2021 9:56 AM EDT [employer] - 12/02/2021 4:29 AM EDT FASTING:YES Emanuel Patel MOTION PICTURE OPERATOR LAB - BLOOD DRAW Final Re sult [employer] [address] [address], [employer] [address] [address] * MICROALBUMIN/CREATININE RATIO, URINE, RANDOM (08/04/2021 12:11 PM EST) CREATININE, RANDOM URINE 233 20 - 320 mg/dL [employer] MICROALBUMIN 2.1 mg/dL [facility] Comment: Reference Range Not established MICROALBUMIN/CREA TININE RATIO, RANDOM URINE 9 <30 mcg/mg creat [employer] Comment: The ADA defines abnormalities in albumin [...] PM EST 08/04/2021 12:12 PM EST Laura Perrinlashawnradah MOTION PICTURE OPERATOR-C LAB - NO BLOOD DRAW Virgen vianney Result [facility] [address] [address], [facility] [address] [address] from Last 3 Months or Most Recently Relevant to Health Maintenance Insurance [place] Care Teams Clinical Application Manager Relationship Specialty Start Date End Date Emanuel Patel FNP [address] [place] [address] PCP - General Family Medicine, [employer] SYSTEM[employer] SOFTWARE DEVELOPER 06/10/20
--- OUTSIDE RECORDS SUMMARY | 2024-09-27 11:26 | XMS_ITS | Clinical Summary ---
Author Organization [facility] ity Address [address] [place] [address] Care Team Providers Care Table Operator Name Role Phone Unavailable Primary Care Provider [...] Influencers of Health Screening 03/12/2024 COVID-19 Vaccine (2023-2 5 season) 2024 Influenza Vaccine (#1) 2024 [...] patient's age to complete this topic Meningococcal B Vacine Aged Out No lo nger eligible based on patient's age to complete [...]
[2024-09-27 11:28] LABS: Basophils Absolute Auto 0.1 X10*3/uL (0.0-0.2); Eosinophils Absolute Auto 0.2 X10*3/uL (0.0-0.4); Eosinophils Percent Auto 2.8 % (0-4); Hematocrit 47.3 % (42.0-52.0); Hemoglobin 15.7 g/dl (14.0-18.0); Imm Gran Abs Auto 0.02 X10*3/uL (0.00-0.03); Imm Gran Pct Auto 0.3 % (0.0-0.4); Lymphocytes Absolute Auto 1.9 X10*3/uL (1.2-4.9); Lymphocytes Percent Auto 28.5 % (20-40); Mean Corpuscular HGB Conc 33.2 g/dl (31.0-36.0); Mean Corpuscular Hemoglobin 30.5 pg (27.0-33.0); Mean Corpuscular Volume 91.8 fL (80.0-98.0); Mean Platelet Volume 11.4 fL (9.4-12.4); Monocytes Absolute Auto 0.6 X10*3/uL (0.1-1.2); Monocytes Percent Auto 8.2 % (2-11); Neutrophils Percent Auto 59.2 % (45-73); Platelet Count 239 X10*3/uL (160-400); Red Blood Count 5.15 X10*6/uL (4.60-5.80); Red Cell Distribution Width 13.2 % (11.0-16.0); White Blood Count 6.8 X10*3/uL (4.8-10.8)
[2024-09-27 11:39] LABS: Estimated Average Glucose 151 mg/dL; Hemoglobin A1C 209.6922 umol/L; Hemoglobin A1c % 6.9 % (<6.0); Total Hemoglobin (HGBA1C) 4009.6704 umol/L
[2024-09-27 12:08] LABS: INTERNATIONAL NORM RATIO 1.1 (0.9-1.1); Prothrombin Time 12.4 SEC (10.9-12.4)
[2024-09-27 12:10] LABS: Alanine Aminotransferase 38 U/L (0-40); Albumin Level 4.2 g/dL (3.5-5.0); Alkaline Phosphatase 104 U/L (39-117); Anion Gap 10 (12-20); Aspartate Amino Transferase 30 U/L (5-37); Bilirubin Total 0.7 mg/dL (0.0-1.0); Blood Urea Nitrogen 10 mg/dL (9-16); C Reactive Protein 0.49 mg/dL (< or = 0.50); Calcium 9.3 mg/dL (8.4-10.2); Carbon Dioxide 29 mmol/L (22-29); Chloride 104 mmol/L (96-108); Cholesterol 155 mg/dL (<200); Estimated Glomerular Filt Rate > 60; Glucose Random 112 mg/dL (60-115); HDL Cholesterol 40 mg/dL (>40); LDL Cholesterol Calculated 99 mg/dL (<100); Potassium 4.5 mmol/L (3.3-5.1); Sodium 138 mmol/L (135-145); Total Protein 8.2 g/dL (6.5-8.0); Triglycerides 82 mg/dL (<150)
[2024-09-27 12:11] LABS: Insulin 24 uU/mL (2-29); Partial Thromboplastin Time 33.9 SEC (26.0-36.8); TSH reflex Free T4 2.53 uIU/mL (0.32-4.0)
== END 2024-09-27 10:39 | disposition home or self-care (01) ==
LOC: HO.LAB 10:38
PROVIDERS: Visit Provider Surgery
DX: E66.812 Obesity, class 2 (principal); E66.01 Morbid (severe) obesity due to excess calories; Z68.35 Body mass index [BMI] 35.0-35.9, adult; K21.9 Gastro-esophageal reflux disease without esophagitis; E11.9 Type 2 diabetes mellitus without complications; I10 Essential (primary) hypertension
CPT/HCPCS: 36415; 80053; 80061; 83036; 83525; 84443; 85025; 85610; 85730; 86140

== ENCOUNTER 2024-10-03 06:08 | Inpatient (IN) | payer MEDICARE, MEDICAID, SELFPAY ==
[2024-08-08 10:35] VITALS: BMI 35.3
[2024-08-13 10:53] LABS: MANUAL DIFF FLAG NO
[2024-08-13 11:01] LABS: Basophils Absolute Auto 0.1 X10*3/uL (0.0-0.2); Basophils Percent Auto 0.7 % (0-2); Eosinophils Absolute Auto 0.2 X10*3/uL (0.0-0.4); Eosinophils Percent Auto 2.6 % (0-4); Hematocrit 48.7 % (42.0-52.0); Hemoglobin 16.8 g/dl (14.0-18.0); Imm Gran Abs Auto 0.01 X10*3/uL (0.00-0.03); Imm Gran Pct Auto 0.1 % (0.0-0.4); Lymphocytes Absolute Auto 1.9 X10*3/uL (1.2-4.9); Lymphocytes Percent Auto 27.5 % (20-40); Mean Corpuscular HGB Conc 34.5 g/dl (31.0-36.0); Mean Corpuscular Volume 89.9 fL (80.0-98.0); Mean Platelet Volume 11.5 fL (9.4-12.4); Monocytes Absolute Auto 0.6 X10*3/uL (0.1-1.2); Monocytes Percent Auto 8.6 % (2-11); Neutrophils Absolute Auto 4.2 x10*3/uL (2.0-8.3); Neutrophils Percent Auto 60.5 % (45-73); Platelet Count 239 X10*3/uL (160-400); Red Blood Count 5.42 X10*6/uL (4.60-5.80); Red Cell Distribution Width 12.2 % (11.0-16.0); White Blood Count 6.9 X10*3/uL (4.8-10.8)
[2024-08-13 11:04] LABS: Partial Thromboplastin Time 31.8 SEC (26.0-36.8)
[2024-08-13 11:10] LABS: Estimated Average Glucose 163 mg/dL; Hemoglobin A1C 236.3148 umol/L; Hemoglobin A1c % 7.3 % (<6.0); Total Hemoglobin (HGBA1C) 4185.1058 umol/L
[2024-08-13 11:46] LABS: Alanine Aminotransferase 48 U/L (0-40); Albumin Level 4.2 g/dL (3.5-5.0); Alkaline Phosphatase 103 U/L (39-117); Anion Gap 11 (12-20); Aspartate Amino Transferase 37 U/L (5-37); Bilirubin Total 0.5 mg/dL (0.0-1.0); Blood Urea Nitrogen 11 mg/dL (9-16); C Reactive Protein 0.38 mg/dL (< or = 0.50); Calcium 8.9 mg/dL (8.4-10.2); Carbon Dioxide 26 mmol/L (22-29); Chloride 107 mmol/L (96-108); Cholesterol 123 mg/dL (<200); Estimated Glomerular Filt Rate > 60; Glucose Random 138 mg/dL (60-115); HDL Cholesterol 38 mg/dL (>40); LDL Cholesterol Calculated 68 mg/dL (<100); Potassium 4.2 mmol/L (3.3-5.1); Sodium 140 mmol/L (135-145); Total Protein 7.6 g/dL (6.5-8.0); Triglycerides 89 mg/dL (<150)
[2024-08-13 12:10] LABS: Insulin 50 uU/mL (2-29); TSH reflex Free T4 2.73 uIU/mL (0.32-4.0)
[2024-09-27 12:14] VITALS: BMI 33.8
[2024-10-03] VITALS (12 sets, daily range): BP systolic 108–156; BP diastolic 67–97; PULSE 59–86; RESP 14–18; TEMP 36.4–36.8; O2SAT 93–99; BMI 33.4
--- OUTSIDE RECORDS SUMMARY | 2024-10-03 06:18 | XMS_ITS | Clinical Summary ---
Author Organization [facility] ity Address [address] [place] [address] Care Team Providers Care Packaging Sales Representative Name Role Phone Unavailable Primary Care Provider [...]
--- OUTSIDE RECORDS SUMMARY | 2024-10-03 06:18 | XMS_ITS | Clinical Summary ---
Author Organization [facility] Address [address] [place] [address] Care Team Providers Care Guest Service Agent Name Role Phone Emanuel Patel [facility] Primary Care Provider [phone] Source Comments PLEASE NOTE, if this patient [...] meter monitoring kitIndications:D iabetes mellitus without complication ([facility]) as needed for blood glucose monitoring Dispense Freeystyle 1 Each 02/23/20 21 Active blood sugar diagnostic (FREESTYLE TEST) stripsIndication s:Diabetes mellitus without complication (HCC-CMS) 1 Each as needed for high blood sugar Check glucose once daily 100 Each 5 12/01/19 22 Active lancets (FREESTYLE LANCETS) 28 gaugeIndications :Diabetes mellitus without complication ([facility]) Check glucose once daily 100 Each 5 [...] mcg/actuation nasal sprayIndications :Nasal congestion Place 1 [place] in both nostrils once daily for 14 [...] Active alcohol swabsIndications :Diabetes mellitus without complication ([facility]) Use to test blood glucose once daily. 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 in [place] 06/16/2016 Essential hypertension 07/16/2020 Subclinical hypothyroidism 07/16/2020 Chronic bilateral low back pain with bilateral s ciatica 07/16/2020 Overview (11/30/2022): Sees [facility] for injection Chronic hip [...] 11/30/2021 TSH Monitoring 12/01/2023 11/30/2022, 07/15, 07/16/2020 Xnm-VDHBC-24 ( season) 2024 11/30/2021, 11/21/2020, 10/23/2020 Imm-Influenza [...] EST Pre-operative clearance Diabetes mellitus without complication ([facility]) Essential hypertension Subclinical hypothyroidism from Last 3 Months or Most Recently Relevant to Health Maintenance Results * (ABNORMAL) HEMOGLOBIN GLYCOSYLATED A1C (03/14/2024 9:53 AM EDT) HEMOGLOBIN A1C 7.9(H) <5.7 % of total Hgb [facility] Comment: For someone without known diabetes, a [...] AM EDT 03/14/2024 9:53 AM EDT Elizabeth [employer] - 03/15/2024 4:38 AM EDT FASTING:YES us Justo HERNANDEZ-Bridgette LAB - BLOOD DRAW Edited R esult - Final [employer] [address] [place] [id number], [facility] [address] [address] * CREATININE BLOOD (03/14/2024 9:53 AM EDT) CREATININE (blood) 0.91 0.60 - 1.29 mg/dL [facility] EGFR 107 > OR = 60 mL/min/1.7 3m2 [facility] Blood Blood / Unknown 03/14/2024 9 :53 AM EDT 03/14/2024 9:53 AM EDT Narrative [employer] - 03/15/2024 4:38 AM EDT FASTING:YES us [place] Emma INSIDE SALES RECRUITER-C LAB - BLOOD DRAW Final Re sult Performing Organization Address [facility]/ZIP Co de Phone Number [employer] [address] [address], [employer] [address] [address] * THYROID CASCADING REFLEX PANEL (11/30/2022 4:12 PM EDT) Pathologist [facility] TSH 2.06 0.40 - 4.50 mIU/L [employer] [facility] Blood Blood / Unknown 11/30/2022 4 :12 PM EDT 11/30/2022 4:12 PM EDT Emanuel Parkncourt INSIDE SALES RECRUITER LAB - BLOOD DRAW Edited R esult - Final Performing Organization Address [facility] Co de Phone Number [employer] [address] [address], [employer] [address] [address] * LIPID PANEL (11/30/2022 4:12 PM EDT) CHOLESTEROL, TOTAL 99 <200 mg/dL [employer] [facility] HDL CHOLESTEROL 49 > OR = 40 mg/dL [employer] [facility] TRIGLYCERIDES 70 <150 mg/dL [employer] [facility] LDL-CHOLESTEROL 35 99 mg/dL (calc) [employer] [facility] Comment: Reference range: <100 Desirable range <100 mg/dL for primary prevention; ?? <70 mg/dL for patients with CHD or diabetic patients with > or = 2 CHD risk factors. LDL-C is now calculated using the Vickey-Andrzej calculation, which is a validated novel method providing better accuracy than the Friedewald equation in the estimation of LDL-C. Vickey SS et al. [facility]. 2013;310(19): 1905-2742 (http://education.[employer]/faq/DTQ980) CHOL/HDLC RATIO 2.0 <5.0 (calc) [facility] NON-HDL CHOLESTEROL 50 <130 mg/dL (calc) [employer] [facility] Comment: For patients with diabetes plus 1 major ASCVD risk factor, treating to a non-HDL-C goal of <100 mg/dL (LDL-C of <70 mg/dL) is considered a therapeutic option. Blood Blood / Unknown 11/30/2022 4 :12 PM EDT 11/30/2022 4:12 PM EDT [facility] - BLOOD DRAW Final Re sult Performing Organization Address [facility]/ZIP Co de Phone Number [email or web address] [address] [address], [employer] [address] [address] * HEPATITIS C AB W/RFLX HCV RNA, QT, RT PCR (12/01/2021 9:55 AM EDT) Pathologist [facility] HEPATITIS C ANTIBODY NON-REACT ANURAG NON-REACT ANURAG [employer] [facility] SIGNAL TO CUT-OFF 0.02 <1.00 [facility] Comment: HCV antibody was non-reactive. There is no laboratory evidence of HCV infection. In most cases, no further action is required. However, if recent HCV exposure is suspected, a test for HCV RNA (test code 58056) is suggested. For additional information please refer to http://education.[employer]/faq/XES92m2 (This link is being provided for informational/ educational purposes only.) Blood Blood / Unknown 12/01/2021 9 :55 AM EDT 12/01/2021 9:56 AM EDT Narrative [email or web address] [facility] - 12/02/2021 4:29 AM EDT FASTING:YES [facility] - BLOOD DRAW Edited R esult - Final Performing Organization Address [facility]/ZIP Co de Phone Number [employer] [facility] [address] [address], [employer] [address] [address] * HIV 1/2 AG & AB W/RFLX (4TH GEN) (12/01/2021 9:55 AM EDT) Pathologist [facility] HIV AG/AB, 4TH GEN NON-REAC TIVE NON-REAC TIVE [facility] Comment: HIV-1 antigen and HIV-1/HIV-2 antibodies were [...] ?? For additional information please refer to http://education.[employer]/faq/QEB984 (This link is being provided for informational/ educational purposes only.) The performance of this assay has not been clinically validated in patients less than 2 years old. Blood Blood / Unknown 12/01/2021 9 :55 AM EDT 12/01/2021 9:56 AM EDT Narrative [employer] - 12/02/2021 4:29 AM EDT FASTING:YES Emanuel Patel INSIDE SALES RECRUITER LAB - BLOOD DRAW Final Re sult [employer] [address] [address], [facility] [address] [address] * MICROALBUMIN/CREATININE RATIO, URINE, RANDOM (08/04/2021 12:11 PM EST) CREATININE, RANDOM URINE 233 20 - 320 mg/dL [facility] MICROALBUMIN 2.1 mg/dL [facility] Comment: Reference Range Not established MICROALBUMIN/CREA TININE RATIO, RANDOM URINE 9 <30 mcg/mg creat [facility] Comment: The ADA defines abnormalities in albumin [...] PM EST 08/04/2021 12:12 PM EST Laura Perrinlashawnradha INSIDE SALES RECRUITER-C LAB - NO BLOOD DRAW Virgen vianney Result [facility] [address] [address], [facility] [address] [address] from Last 3 Months or Most Recently Relevant to Health Maintenance [place] Care Teams Guest Service Agent Relationship Specialty Start Date End Date Emanuel Patel FNP [address] [place] [address] PCP - General Family Medicine, PBX OPERATOR 06/10/20
[2024-10-03] MEDS: Lactated Ringers 1,000 ML 999 ML IV ×2 (06:41→07:32)
[2024-10-03] MEDS: Aprepitant 32 MG/4.4 ML VIAL IVPUSH (06:45)
[2024-10-03 07:16] LABS: Glucose, Whole Blood 145 mg/dL (60-115)
--- NOTE | 2024-10-03 07:21 | PHA.MEDREC ---
Addendum entered by Mariia Valentine RPh 10/03/24 07:35: Reviewed by [facility] Original Note: Pharmacy Consult ? Medication Reconciliation Pharmacy reviewed med rec done by nursing. Patient confirmed he takes his Metformin 500mg tab twice daily; I updated that in the med rec, nurse confirmed once daily. Patient also confirmed he has not taken his medications except for his Enalapril 20mg tab in about 1 week for the surgery today, he confirmed he took the Enalapril 20mg tab yesterday.
--- NOTE | 2024-10-03 07:31 | MHC.SHP ---
Pre-Procedural Eval Section A - 24 Hr Update-Section A only Date of Service: 10/03/24 The patient is an INPATIENT: Yes The patient has been examined within 24 hours of the surgical procedure. The History & Physical has been completed within 30 days and I have reviewed it.: No Section B - Complete if H&P > 30 days Chief Complaint: Obesity Relevant Family History (Specify if Yes): No Relevant Social History: None Present Medications: None Medical History: No relevant PMH History of Previous Operations: No relevant previous surgery Allergies: Allergies Allergy/AdvReac Type Severity Reaction Status Date / Time No Known Allergies Allergy Verified 10/03/24 06:18 Review of Systems Sugical H&P ROS: Negative: Constitution, Cardiovascular, Respiratory, Neurological, Psychiatric, Hem-Onc, Allergic/Immunologic, Gastrointestinal, Genitourinary, Musculoskeletal, Integumentary, Endocrine and Eyes/Ears/Nose/Throat Exam Surgical H&P Exam: Normal: HEENT, Normal: Heart, Normal: Lungs, Normal: Extremities, Normal: Abdomen, Normal: Skin and Normal: Neurological Plan Diagnosis/Plan: Unchanged I have reviewed the history and physical and performed a pertinent physical examination on my patient. No changes have occurred unless specified. Time Spent With Patient Time: Total time managing care of this patient today ____ minutes.
--- NOTE | 2024-10-03 07:33 | P.PNGS_ITS ---
Subjective Subjective Date of Service: 10/04/24 Interval history: Feels well. Mild incisional pain. He is tolerating phase 1 bariatric diet Physical Exam 2 Vital Signs: Vital Signs: Last Vital Signs Temp 98.3 F 10/03/24 06:28 Pulse 86 10/03/24 06:28 Resp 14 10/03/24 06:28 BP 138/84 10/03/24 06:28 Pulse Ox 96 10/03/24 06:28 O2 Del Method Room Air 10/03/24 06:28 BMI result Body Mass Index 33.4 GI: Inspection: Yes normal to inspection, Yes incision (clean, dry and intact) and Yes obesity Palpation (GI): Soft to palpation Extrem: Right lower extremity: normal to inspection (no calf tenderness) L eft lower extremity: normal to inspection (no calf tenderness) Objective Data Active Medications Lactated Ringer's (Lr) 1,000 mls @ 999 mls/hr IV .Q1H1M KESHIA Stop: 10/03/24 08:15 Last Admin: 10/03/24 07:32 Dose: 999 mls/hr Documented By: JEANCARLOS Labs 10/04/24 05:53 10/04/24 05:53 Labs: Laboratory Results - last 24 hr 10/03/24 07:11 POC Glucose 145 H Procedures Date of Service Date of Service: 10/04/24 Progress Note: A&P Assessment and plan (1) Obesity: Status: Acute Assessment and Plan: s/p laparoscopic sleeve gastrectomy, lysis of adhesions and gastropexy Doing well Will check am labs and if OK the patient will be discharged home (2) BMI 32.0-32.9,adult: Status: Acute (3) GERD (gastroesophageal reflux disease): Status: Acute (4) Esophagitis determined by biopsy: Status: Acute (5) Non-insulin dependent type 2 diabetes mellitus: Status: Acute (6) HTN (hypertension): Status: Acute (7) Elevated cholesterol: Status: Acute (8) DJD (degenerative joint disease): Status: Acute (9) Congenital intra-abdominal adhesions: Status: Acute (10) S/P laparoscopic sleeve gastrectomy: Status: Acute Time Spent With Patient Time: Total time managing care of this patient today ____ minutes. Quality Stroke Does the patient have a stroke diagnosis?: No VTE Prior VTE?: No VTE Risk Level:: Surgical - moderate VTE Device Contraindication: N/A - Device Ordered VTE Drug Contraindication: Treatment Not Indicated
[2024-10-03] MEDS: ceFAZolin Sodium/Dextrose,Iso 2 GM/50 ML PIGGYBACK IV ×2 (07:35→14:17)
--- NOTE | 2024-10-03 07:39 | P.BOP_ITS ---
Brief Operative Note Date of Service: 10/03/24 Pre-op diagnosis: Severe obesity with comorbidities (see below) Post-op diagnosis: same Procedure: INITIAL PATIENT BMI ON PRESENTATION AT OUR OFFICE: 35 kg/m2 LAST BMI BEFORE SURGERY:32 kg/m2 COMORBIDITIES: non-insulin dependent diabetes, GERD, hyperlipidemia, DJD, GERD ?The patient presented to the Weight Management Program with significant obesity that was negatively impacting the patient's comorbidities as listed above.? The program is a phased program with a special focus on preoperative medical weight management to promote substantial weight loss and prepare the patients for the second phase of the program: bariatric surgery. The patient participated in an intensive weekly lifestyle ?intervention and exercise program during which the patient ?has lost between the initial office visit and the last preoperative visit 23.8 lbs, or 8.8% of initial actual body weight. It was deemed appropriate for the patient to now have bariatric surgery. In light of the current Covid-19 pandemic and the well documented strong association of obesity and increased risk of worse outcomes if infected with Covid-19 (REFERENCES: https://pubmed.ncbi.nlm.nih.gov/50762436/ ,? https://pubmed.ncbi.nlm.nih.gov/93212578/ ), any delay in undergoing bariatric surgery may lead to the patient's worsening health condition and increased?risk of more severe Covid-19 disease if infected. In addition a recent?study from [facility] published in [facility] on 08/09/2021 ([email or web address]) found that, among patients with obesity, substantial weight loss achieved with surgery was associated with improved outcomes of COVID-19 infection. The findings suggest that obesity can be a modifiable risk factor for the severity of COVID-19 infection. In addition, the patient met the BMI-criteria for bariatric surgery based on the BMI on initial presentation. The patient should not be penalized for achieving such weight loss because ?it is not sustainable long-term without surgical intervention and it was achieved in preparation for bariatric surgery ?under my direction and based on my published research ([email or web address]).pdf and? https://www.soard.org/article/[email or web address](86)55760-X/pdf ) ?that a 10% preoperative weight loss improves long-term weight loss after surgery and reduces perioperative complications.? Insurance carriers such as [facility] have endorsed my recommendations ?and have included in their policies criteria to include a 10% preoperative weight loss requirement. PROCEDURE: Esophago-gastroscopy laparoscopic lysis of adhesions, laparoscopic sleeve gastrectomy and laparoscopic gastropexy INDICATIONS: This is a 44 year-old male who was electively scheduled for laparoscopic, possibly open sleeve gastrectomy. The risks and complications of the procedure were discussed with the patient in advance, particularly the possibility of ; pulmonary embolism; staple line leak; bleeding; GERD; cardiac, pulmonary, or renal complications; as well as long-term problems such as insufficient weight loss, vitamin deficiency, strictures, or ulcers. The patient understood all the risks, and was in agreement to proceed with surgery. DESCRIPTION OF PROCEDURE: After informed consent was obtained from the patient, the patient was given preoperative antibiotics, and was transferred to the operating room. After successful induction of general anesthesia, pneumatic compression devices were placed on both lower extremities. An upper endoscopy was performed next. The oropharynx and esophagus appeared to be within normal limits. There was a small diaphragmatic hernia present consistent with the findings of the preoperative upper GI. The stomach was entered. Then after all fluid and air were suctioned and the stomach was fully decompressed, the scope was withdrawn and secured in the mid esophagus. The patient was then prepped and draped in the usual sterile manner, and abdominal access was established at the right upper quadrant with the Hannah technique. A 12 mm blunt port was inserted, and the abdomen was insufflated with CO2 to a pressure of 15 mmHg. Under direct visualization, additional ports were placed, specifically two 5 mm Versi-step ports to the left upper quadrant, and a 5 mm Versi-Step port to the right upper quadrant. 1% lidocaine plain was used to infiltrate all port sites as well as all fascia defects. Using the EndoClose suture passer device, I placed a #1 Polysorb tie across the falciform ligament in order to retract it up against the abdominal wall and prevent injury of the ligament with our instruments during the procedure. Following that, the patient was placed in a steep reverse Trendelenburg position. An additional 5 mm port was placed to the right flank for the Mediflex retractor that was used to retract the left lobe of the liver. The gastro-esophageal fat pad was opened with the ultrasonic device (Thunderbeat, Olympus) and the anterior esophagus and hiatus were exposed. The angle of His was opened with the ultrasonic device the fundus of the stomach from any diaphragmatic and splenic attachments. I then opened the gastrocolic ligament between the transverse colon and the greater curvature of the stomach with the ultrasonic device to enter the lesser sac and facilitate the ligation of the short gastric vessels. I started at a mid-point along the greater curvature and using the Thunderbeat, all short gastric vessels were divided all the way to the angle of His until the left zion was completely dissected at its entirety. I then divided the gastro-colic ligament distally to a distance of about 3-4 cm proximal to the pylorus. ? PLEASE REVIEW BEFORE TO INCLUDE THIS SENTENCE There were extensive congenital adhesions between the stomach and the gastroesophageal fat pad with the diaphragm. Those were lysed completely. The stomach was then divided transversely with four Endo PRAFUL-45 purple and two PRAFUL-60 articulating purple loads using the ElasticDotIA stapler and loads. Every effort was made that the gastric sleeve had a tubular shape and an even caliber throughout. Once the sleeve resection was completed, the staple line of the gastric sleeve was reinforced with Hemoclips. The resected stomach was retrieved without difficulty from the Hannah port. A gastropexy was then performed in order to prevent postoperative GERD and partial gastric volvulus. Several interrupted 2.0 Surgidac sutures were placed between the sleeve's staple line and the previously divided greater omentum and gastro-colic ligament using the Endo-Stitch device. ?An upper endoscopy was performed. There was no narrowing at the GE junction. The scope was easily advanced all the way to the pylorus which was clearly visualized. There was no narrowing anywhere and the sleeve's caliber was even throughout. The sleeve's staple line was inspected and there was no evidence of ischemia, bleeding or dehiscence. At that point the gastroscope was withdrawn from the patient?s mouth while we were decompressing the bowel and the stomach from any remaining air. I looked into the lesser sac to see how the sleeve was situating and it was situating well. There was no bleeding from the staple line, spleen, or short gastric vessels. The Mediflex retractor was removed, and the undersurface of the liver was inspected and there was no bleeding. The patient was placed in supine position. I closed the fascial defect of the 12 mm port site with a figure of eight #1 Polysorb suture. Then 30cc Ropivacaine plain with 10 mg of Dexamethasone were used to infiltrate the fascial closure as well as all skin incisions. At this point, the abdomen was deflated, all ports were removed under direct vision, and no bleeding was noted from any of the port sites. The skin incisions were irrigated with saline and were closed with 4-0 absorbable monofilament sutures. Steri-Strips and OpSites were used to cover all incisions. The patient was extubated and was transferred in stable condition to the recovery room for further care. I was present and performed all naylor parts of the procedure. Mr. Han was the first aid nurse. There were no residents to assist with this case. Ronni Zavala MD, PhD, FACS Surgeon: Uri Zavala MD Anesthesia: GETA, local and other (TAP block) Was an [employer] Assistant Principal used for this Procedure?: No [employer] Assistant Principal: Davis Han Estimated blood loss (mL): 10 IV fluids (mL): 2,000 Urine output (mL): 0 (No [place] to record output) Pathology: other (1) Stomach, 2) gastro-esophageal fat pad) Condition: stable Disposition: PACU
--- NOTE | 2024-10-03 08:55 | P.CONAN_ITS ---
HPI - Anesthesia Eval Consult details Narrative: gastrectomy sleeve PMFSH Active Problems Active Problems: All Active Problems BMI 32.0-32.9,adult (Acute) BMI 35.0-35.9,adult (Acute) Esophagitis determined by biopsy (Acute) Vitamin A deficiency (Acute) Vitamin B12 deficiency (Acute) Vitamin D deficiency (Acute) Closed left ankle fracture (Acute) DJD (degenerative joint disease) (Acute) GERD (gastroesophageal reflux disease) (Acute) Non-insulin dependent type 2 diabetes mellitus (Acute) Elevated cholesterol (Acute) HTN (hypertension) (Acute) BMI 34.0-34.9,adult (Acute) Obesity (Acute) Status post open reduction with internal fixation (ORIF) of fracture of ankle (Acute) Past Medical History Medical History Snores Back pain Pre-diabetes DJD (degenerative joint disease) GERD (gastroesophageal reflux disease) Non-insulin dependent type 2 diabetes mellitus BMI 34.0-34.9,adult Obesity Elevated cholesterol HTN (hypertension) Family History Family History Mother COPD (chronic obstructive pulmonary disease) Father COPD (chronic obstructive pulmonary disease) Daughter No problems noted. Daughter Hypoglycemia Son Depression Anxiety Family history of problems with anesthesia: No Surgical History Surgical History History of esophagogastroduodenoscopy (EGD) (07/03/24) Status post open reduction with internal fixation (ORIF) of fracture of ankle Hx of neck surgery History of total right hip replacement History of back surgery History of Problems with Anesthesia: No Social History Social History Household Members: Significant Other Housing: Apartment Are you a primary manager home healthcare to a significant other at home: No Do you presently have visiting nurse or other home services: No Alcohol intake: never Patient Tobacco Use Status: Never used Tobacco e-Cigarette/Vaping Use: Never Used Use of substances other than those prescribed or required for medical reasons: No Have you been hit, kicked, punched, or otherwise hurt by someone within the past year? If so, by whom?: No Are you DNR?: No Advance Directives: No Advance Directives Information Provided: Yes Advance Directives on File: No Recently lost weight without trying: No Nutrition Risks: No Nutritional Risk Poor oral hygiene: No Current occupational status: employed Current occupation: [employer] Allergies Allergy/AdvReac Type Severity Reaction Status Date / Time No Known Allergies Allergy Verified 10/03/24 06:18 Home Medications ?Medication ?Instructions ?Recorded ?Confirmed ?Last Taken ?Type atorvastatin 20 mg tablet 20 mg PO DAILY 06/02/23 10/03/24 1 Week Ago History ~09/26/24 enalapril maleate 20 mg tablet 20 mg PO BID 06/02/23 10/03/24 10/02/24 History gabapentin 600 mg tablet 600 mg PO TID 06/02/23 10/03/24 2 Weeks Ago History ~09/19/24 ibuprofen 800 mg tablet 800 mg PO TID PRN Pain 06/02/23 10/03/24 Unknown History metformin 500 mg tablet,extended 500 mg PO BID 06/02/23 10/03/24 1 Week Ago History release 24 hr ~09/26/24 Exam Height,Weight and Vital Signs: Height 6 ft 2 in Weight 118 kg Last Vital Signs Temp 98.3 F 10/03/24 06:28 Pulse 86 10/03/24 06:28 Resp 14 10/03/24 06:28 BP 138/84 10/03/24 06:28 Pulse Ox 96 10/03/24 06:28 O2 Del Method Room Air 10/03/24 06:28 Pertinent Lab Results Pertinent Lab Results: Laboratory Tests 08/13/24 08/13/24 09/27/24 10:27 10:34 11:02 WBC 6.9 RBC 5.42 Hgb 16.8 Hct 48.7 MCV 89.9 MCH 31.0 MCHC 34.5 RDW 12.2 Plt Count 239 MPV 11.5 Immature Gran % (Auto) 0.1 Neut % (Auto) 60.5 Lymph % (Auto) 27.5 [place] % (Auto) 8.6 Eos % (Auto) 2.6 Baso % (Auto) 0.7 Lymph # (Auto) 1.9 [place] # (Auto) 0.6 Eos # (Auto) 0.2 Baso # (Auto) 0.1 Abs Immat Gran (auto) 0.01 Absolute Neuts (auto) 4.2 Absolute Nucleated RBC 0.000 Nucleated RBC % (auto) 0.0 PT 12.0 INR 1.0 APTT 31.8 Sodium 140 Potassium 4.2 Chloride 107 Carbon Dioxide 26 Anion Gap 11 L BUN 11 Creatinine 0.77 Estim Creat Clear Calc 170.0 Estimated GFR > 60 POC Glucose Random Glucose 138 H Estimat Average Glucose 163 Hemoglobin A1c % 7.3 H Insulin Level 50 H Calcium 8.9 D Total Bilirubin 0.5 AST 37 ALT 48 H Alkaline Phosphatase 103 C-Reactive Protein 0.38 Total Protein 7.6 Albumin 4.2 Triglycerides 89 Cholesterol 123 LDL Cholesterol, Calc 68 HDL Cholesterol 38 L TSH 2.73 Blood Type O Positive O Positive Antibody Screen NEGATIVE NEGATIVE 10/03/24 07:11 WBC RBC Hgb Hct MCV MCH MCHC RDW Plt Count MPV Immature Gran % (Auto) Neut % (Auto) Lymph % (Auto) [place] % (Auto) Eos % (Auto) Baso % (Auto) Lymph # (Auto) [place] # (Auto) Eos # (Auto) Baso # (Auto) Abs Immat Gran (auto) Absolute Neuts (auto) Absolute Nucleated RBC Nucleated RBC % (auto) PT INR APTT Sodium Potassium Chloride Carbon Dioxide Anion Gap BUN Creatinine Estim Creat Clear Calc Estimated GFR POC Glucose 145 H Random Glucose Estimat Average Glucose Hemoglobin A1c % Insulin Level Calcium Total Bilirubin AST ALT Alkaline Phosphatase C-Reactive Protein Total Protein Albumin Triglycerides Cholesterol LDL Cholesterol, Calc HDL Cholesterol TSH Blood Type Antibody Screen Airway Mallampati Class: II TM Dist: >3cm Neck ROM: Full Heart: rrr Lungs: cta Assessment and Plan Assessment Anesthesia Assessment: Anesthesia Plan Discussed Final Anesthetic Review Family History of Problems with Anesthesia: No History of Problems with Anesthesia: No NPO: Yes ASA Class: III Final Preanesthetic Review: No Changes in Pt Med Stat, Meds/Allgs Chart Reviewed, Consent Obtained/Reviewed and Anes Risks/Benef Reviewed Patient Risk: Intermediate Procedure Risk: Intermediate Anesthetic Plan Anesthetic Plan: GA Disposition: Standard PACU
--- NOTE | 2024-10-03 09:50 | P.DS_ITS ---
DS: Providers Provider Date of Service: 10/04/24 Date of admission: 10/03/24 06:08 Date of discharge: 10/04/24 Primary care physician: Emanuel Patel NP DS: Diagnosis Discharge Diagnosis (1) Obesity: Status: Acute (2) BMI 32.0-32.9,adult: Status: Acute (3) GERD (gastroesophageal reflux disease): Status: Acute (4) Esophagitis determined by biopsy: Status: Acute (5) Non-insulin dependent type 2 diabetes mellitus: Status: Acute (6) HTN (hypertension): Status: Acute (7) Elevated cholesterol: Status: Acute (8) DJD (degenerative joint disease): Status: Acute DS: Summary Hospital Course Hospital Course: ADMITTING DIAGNOSIS: obesity, htn, dm, hld ? DISCHARGE DIAGNOSIS: same, s/p laparoscopic sleeve gastrectomy ? PAST SURGICAL HISTORY: ORIF ankle, R THR, back/neck surgery ? PROCEDURE: upper endoscopy, laparoscopic sleeve gastrectomy ? DISCHARGE SUMMARY: ? History of Present Illness: ? The patient is a?44 year-old male with a BMI of?37.7 kg/m2 and associated co- morbidities as described above. The patient had extensive work-up,lost?10.6 lbs preoperatively and was electively scheduled for laparoscopic, possible open sl eeve gastrectomy and gastropexy. Risks and complications of the surgery were discussed with the patient in advance, particularly the possibility of , pulmonary embolism, anastomotic leak, bleeding, bowel injury, GERD, cardiac, renal or pulmonary complications. The patient understood all the risks and was in agreement with the surgical plan. ? Hospital Course: ? The patient underwent an uneventful laparoscopic sleeve gastrectomy with gastropexy on the day of admission. Postoperatively, the patient was transferred to the surgical floor. The patient received IV Acetaminophen and IV dilaudid for pain control. Patient was started on bariatric phase 1 diet POD #0. On postoperative day one, the patient was feeling well without nausea, vomiting, fevers, or tachycardia. The patient had some mild incisional pain and the abdomen was soft. ? On the morning of postoperative day one, the patient was continued on 1 ounce of water or ice every half hour. During the day, the patient did fairly well, having some incisional pain, but able to ambulate adequately and to tolerate liquids well. ? Since the patient is doing well, we decided that the patient was ready to be discharged. The patient was given instructions to follow-up with me next week and to call my office for any fever over 101, persistent abdominal pain, nausea, vomiting, GERD, symptoms of DVT such as calf tenderness, or leg swelling, or pulmonary embolism such as chest pain or shortness of breath. The patient was also instructed to drink 40-60 ounces of liquids per day using the 1-ounce cups. The patient had been given prescriptions for Tylenol for pain, Zofran prn for nausea, and pantoprazole and carafate previously. The patient was encouraged to ambulate and use the incentive spirometer. The patient was allowed to shower, but no baths, and encouraged to stay active at home. All of these instructions were given to the patient personally. All questions were answered and the patient understood all instructions, the instructions were also given to the patient in print. Time Attestation Total time managing care of this patient today: 25 mintues. Discharge Coordination Time (in mins): 25 Quality: Safe Use of Opioids Does Pt have an Active Cancer Diagnosis on the Problem List?: No Quality: Stroke Does the patient have a stroke diagnosis?: No Physical Exam 2 Vital Signs: Vital Signs: Last Vital Signs Temp 98.3 F 10/03/24 06:28 Pulse 86 10/03/24 06:28 Resp 14 10/03/24 06:28 BP 138/84 10/03/24 06:28 Pulse Ox 96 10/03/24 06:28 O2 Del Method Room Air 10/03/24 06:28 BMI result Body Mass Index 33.4 DS: Data Data Completed and Pending Pending studies at discharge: Pending at discharge 10/03/24 09:07 Surgical [PTH] Routine Labs on day of discharge: Laboratory Results - last 24 hr 10/03/24 07:11 POC Glucose 145 H Discharge Plan Discharge Anticipated Discharge Date/Time: 10/04/24 10:00 Patient Disposition: Home, Self-Care Discharge Diagnosis: s/p laparoscopic sleeve gastrectomy Referrals: Emanuel Patel, MEDICAL SCIENTIFIC OFFICER [Primary Care Provider] - 1 Week Discharge Medications: Continued (DME) Kneeling Scooter See Rx Instructions .ROUTE .MEDSUPPLY Qty: 1 0RF Rx Instructions: duration: lifetime pantoprazole 40 mg tablet,delayed release (DR/EC) 40 mg PO DAILY Qty: 90 0RF sucralfate 100 mg/mL suspension 10 ml PO BID Qty: 600 2RF ondansetron 4 mg tablet,disintegrating 4 mg PO Q12H Qty: 20 0RF Rx Instructions: Only take one every 12 hours as needed if you have nausea Held enalapril maleate 20 mg tablet 20 mg PO BID Hold Instructions: Resume on 10/05/24. Check your blood pressure every morning as soon as you wake up and send it to Dr. Zavala. Do no take the blood pressure medication if the blood pressure is below 120/70. Wait every day to hear back from Dr. Zavala before you take the medication. atorvastatin 20 mg tablet 20 mg PO DAILY Hold Instructions: Resume on 10/07/24. gabapentin 600 mg tablet 600 mg PO TID Hold Instructions: Resume on 10/18/24. metformin 500 mg tablet extended release 24 hr 500 mg PO BID Hold Instructions: until discussed with dr zavala Discontinued cholecalciferol (vitamin D3) 125 mcg (5,000 unit) capsule 125 mcg PO DAILY Qty: 90 0RF mecobalamin (vitamin B12) 1,000 mcg tablet,disintegrating 1,000 mcg sublingual DAILY Qty: 90 0RF Rx Instructions: place tablet under tongue and allow to dissolve for at least30 secs before swallowing vitamin A palmitate 3,000 mcg (10,000 unit) capsule 10,000 unit PO DAILY Qty: 60 0RF polyethylene glycol 3350 17 gram/dose powder 17 g PO DAILY Qty: 238 0RF Rx Instructions: Mix each measuring cup with 8oz of water, Crystal light, or Gatorade zero, or Propel and do 7 measuring cups on 08/19/24 and another 7 measuring cups on 08/20/24 ibuprofen 800 mg tablet 800 mg PO TID PRN (Reason: Pain) Discharge Orders: Discharge Order (Routine); Ordered 10/04/24 Ordered By: Uri Zavala Activity on Discharge: No heavy lifting Stand Alone Forms: Patient Portal Discharge page Print Language: [place] Care Plan Goals: weight loss Health Concerns: obesity Plan of Treatment: No tub baths, sex or returning to work until discussed at first post op appointment. No exercise, alcohol, tobacco or illegal drug use. Continue to use incentive spirometer hourly while awake. Walk in home for 5- 10 minutes every 2 hours during the first week. Follow all instructions in the bariatric handbook and call with any questions.Discharge Instructions 1. Please call your doctor or come back to the emergency room should any new symptoms arise. 2. You will receive a courtesy call from [facility] 24-48 hours after discharge. 3. Activity: abstain from alcohol, practice limited stair climbing, no bending, no driving, no exercise, no illicit substances, no lifting, no sex, no tub bath, no work. 4. Diet: continue as discussed with Dr. aZvala. 5. Dressing Change/Wound Care: Your incision is covered by clear bandages and guaze underneath. If the area is tender, you may apply an ice pack for short intervals (no more than 20 minutes on, followed by at least 20 minutes off). Do not apply heat. Do not use creams, lotions, or topical antibiotics unless instructed to do so by your surgeon. These can cause infection or allergic reaction. 6. Call your doctor if: - Your temperature exceeds 101.5 F - You experience excessive pain or swelling - You have an unexpected reaction to medication - You have excessive bleeding - You experience continued vomiting/nausea - Your incision begins to separate - Your incision shows signs of infection such as increased redness, swelling, excessive pain, heat, or drainage (light blood or clear fluid is normal) 7. General instructions: No lifting greater than 5 lbs for 1 week and not more than 20lbs the next 3?weeks. No driving until seen at the office in 5-7 days after surgery. If you do not move your bowels in the next 2 days, please tell?Dr. Zavala. Please walk around your home every hour or two to prevent blood clots from forming in your legs. You do not need to wake from sleeping to walk. Please sleep in a bed or couch to prevent kinking at the hips and knees. Please take your incentive spirometer (your lung typewriter assembler) home with you and use it for the next few days to prevent pneumonia. You may shower, no hot tubs, baths or swimming pools.?Please follow the post op diet instructions you are?given by Dr Zavala? and text me daily at 5-6pm for an update.?If you have any issues or concerns or questions please communicate this to him via text.? The Celebrate shakes have all of the bariatric vitamins you need if you consume these shakes. If you are drinking other protein shakes, you will need to purchase the Celebrate multivitamins and calcium that are available in the [facility] gift shop on the first floor of the [facility].??Do not take anything without first discussing with Dr Zavala. Please make sure you are consuming at least 40 ounces of fluids per day starting the?day AFTER your discharge from the hospital. Always drink 1-2 ml per minute using the 5ml?syringe. If you drink faster you may experience?bloating,?gas pain, burping, nausea or heartburn. In that case please slow down your pace and use the syringe to?understand better the?proper?pace and volume of drinking. Do not hesitate to contact the office with any questions at . The patient's medical history has been reviewed and they are considered low risk for post op DVT and therefore DVT prophylaxis is not considered necessary. Travel after surgery was reviewed. The patient has not disclosed any travel plans during the first 30 days after surgery and they have been advised that within the first 30 days after surgery any bus, plane, train or car travel over 2 hours in duration is contraindicated due to the possibility of developing blood clots from immobility. Any travel, needs to include periods of ambulation of 10 minutes in duration every 2 hours.? The patient was instructed to discuss any plans for travel during this period with their bariatric surgeon. Assessment: stable s/p laparoscopic sleeve gastrectomy Discharge Date/Time: 10/04/24 08:36
[2024-10-03] MEDS: HYDROmorphone HCl 0.5 MG/0.5 ML SYRINGE 0.25 MG IVPUSH (10:13)
[2024-10-03 10:28] LABS: Hematocrit 45.8 % (42.0-52.0); Hemoglobin 15.6 g/dl (14.0-18.0)
[2024-10-03 11:29] LABS: Anion Gap 15 (12-20); Blood Urea Nitrogen 12 mg/dL (9-16); Carbon Dioxide 26 mmol/L (22-29); Chloride 103 mmol/L (96-108); Creatinine Clr Calc Pharmacy 159.1; Estimated Glomerular Filt Rate > 60; Glucose Random 143 mg/dL (60-115); Potassium 5.2 mmol/L (3.3-5.1); Sodium 139 mmol/L (135-145)
[2024-10-03] MEDS: Lactated Ringers 1,000 ML 100 ML IVCONT ×2 (12:12→20:58)
[2024-10-03] MEDS: ondansetron HCL 4 MG/2 ML VIAL IVPUSH ×2 (12:12→19:46)
[2024-10-03] MEDS: Acetaminophen 1,000 MG/100 ML PIGGYBACK 16.7 MG IV ×2 (14:59→19:15)
[2024-10-03] MEDS: Enalapril Maleate 10 MG TABLET 20 MG PO (20:25)
[2024-10-04] MEDS: Acetaminophen 1,000 MG/100 ML PIGGYBACK 16.7 MG IV ×2 (00:16→05:41)
[2024-10-04] MEDS: ondansetron HCL 4 MG/2 ML VIAL IVPUSH (03:38)
[2024-10-04 03:59] VITALS: BP 117/65; PULSE 69; RESP 17; TEMP 36.1; O2SAT 93
[2024-10-04] MEDS: Lactated Ringers 1,000 ML 100 ML IVCONT (05:35)
[2024-10-04] MEDS: Pantoprazole Sodium 40 MG/10 ML VIAL IVPUSH (05:35)
[2024-10-04 06:17] LABS: MANUAL DIFF FLAG NO
[2024-10-04 06:20] LABS: Basophils Percent Auto 0.2 % (0-2); Eosinophils Percent Auto 0.3 % (0-4); Hematocrit 44.8 % (42.0-52.0); Hemoglobin 15.4 g/dl (14.0-18.0); Imm Gran Abs Auto 0.05 X10*3/uL (0.00-0.03); Imm Gran Pct Auto 0.4 % (0.0-0.4); Lymphocytes Absolute Auto 1.1 X10*3/uL (1.2-4.9); Lymphocytes Percent Auto 9.5 % (20-40); Mean Corpuscular HGB Conc 34.4 g/dl (31.0-36.0); Mean Corpuscular Hemoglobin 30.9 pg (27.0-33.0); Mean Platelet Volume 11.5 fL (9.4-12.4); Monocytes Absolute Auto 0.6 X10*3/uL (0.1-1.2); Monocytes Percent Auto 5.4 % (2-11); Neutrophils Absolute Auto 9.5 x10*3/uL (2.0-8.3); Neutrophils Percent Auto 84.2 % (45-73); Platelet Count 244 X10*3/uL (160-400); Red Blood Count 4.98 X10*6/uL (4.60-5.80); Red Cell Distribution Width 12.7 % (11.0-16.0); White Blood Count 11.3 X10*3/uL (4.8-10.8)
[2024-10-04 06:37] LABS: Anion Gap 14 (12-20); Blood Urea Nitrogen 10 mg/dL (9-16); Calcium 8.9 mg/dL (8.4-10.2); Carbon Dioxide 22 mmol/L (22-29); Chloride 104 mmol/L (96-108); Creatinine Clr Calc Pharmacy 184.5; Estimated Glomerular Filt Rate > 60; Glucose Random 129 mg/dL (60-115); Potassium 4.3 mmol/L (3.3-5.1); Sodium 136 mmol/L (135-145)
[2024-10-04 06:53] VITALS: BP 128/63; PULSE 82; RESP 17; TEMP 36.6; O2SAT 95
[2024-10-04] MEDS: Enalapril Maleate 10 MG TABLET 20 MG PO (07:51)
[2024-10-04] MEDS: Atorvastatin Calcium 20 MG TABLET PO (07:51)
--- NOTE | 2024-10-04 08:40 | MHC.CM.PN ---
PATIENT DC'D HOME SELF CARE VIA PRIVATE TRANSPORT PRIOR TO CM ASSESSMENT.
--- NOTE | 2024-10-04 10:58 | HO.POSTANES ---
Post Anesthesia Evaluation Post Anesthesia Evaluation Date of Service: 10/04/24 Vital Signs: Vital Signs Temp Pulse Resp BP Pulse Ox O2 Del Method 10/04/24 06:53 97.9 F 82 17 128/63 95 Room Air 10/04/24 03:59 97.0 F 69 17 117/65 93 Room Air 10/03/24 23:35 97.6 F 76 17 108/67 93 Room Air Anesthesia: General Endotracheal-GETA Mental Status: Awake Pain Control: Satisfactory Nausea/Vomiting: None Hydration: Adequate Anesthesia-Related Issues: No Anes. Related Issues
== END 2024-10-04 08:36 | disposition home or self-care (01) | DRG 620 ==
LOC: HO.SSSA 09:56 → HO.S3 10:34
PROVIDERS: Physician Assistant Surgical; Admitting Provider Surgery; PCP Nurse Practitioner Family; Visit Provider Surgery
PROC: 0DB64Z3 Excision of Stomach, Percutaneous Endoscopic Approach, Vertical (ICD-10-PCS; CPT 43845; principal; 2024-10-03 07:30)
DX: E66.01 Morbid (severe) obesity due to excess calories (principal); Q43.3 Congenital malformations of intestinal fixation; K21.9 Gastro-esophageal reflux disease without esophagitis; E78.5 Hyperlipidemia, unspecified; M19.90 Unspecified osteoarthritis, unspecified site; Z68.32 Body mass index [BMI] 32.0-32.9, adult; E11.9 Type 2 diabetes mellitus without complications; Z79.84 Long term (current) use of oral hypoglycemic drugs; Z79.899 Other long term (current) drug therapy
CPT/HCPCS: 36415; 80048; 80053; 80061; 82947; 83036; 83525; 84443; 85014; 85018; 85025; 85610; 85730; 86140; 86850; 86900; 86901; 88304; 88305; 88307; 88342; A4649; C9145; J0131; J0690; J1100; J1171; J2003; J2371; J2405; J2470; J2704; J2795; J3010; J7120

== ENCOUNTER → 2024-10-03 06:08 | Outpatient (BNV) | payer MEDICARE, MEDICAID, SELFPAY | PROVIDERS: Admitting Provider Surgery; PCP Nurse Practitioner Family; Visit Provider Surgery | DX: E66.812 Obesity, class 2 (principal); E66.01 Morbid (severe) obesity due to excess calories; Z68.35 Body mass index [BMI] 35.0-35.9, adult; Z68.32 Body mass index [BMI] 32.0-32.9, adult; K21.9 Gastro-esophageal reflux disease without esophagitis; K20.90 Esophagitis, unspecified without bleeding; E11.9 Type 2 diabetes mellitus without complications; I10 Essential (primary) hypertension; E78.00 Pure hypercholesterolemia, unspecified; M19.90 Unspecified osteoarthritis, unspecified site; Q43.3 Congenital malformations of intestinal fixation; Z98.84 Bariatric surgery status | CPT/HCPCS: 43659; 43775; 99024; 99499 ==

== ENCOUNTER 2024-10-10 13:11 | Outpatient (AMB) | payer MEDICARE, MEDICAID, SELFPAY ==
--- NOTE | 2024-10-10 13:29 | A.OFFVIS_ITS ---
Vital Signs 10/10/24 13:29 Height 6 ft 2 in Blood Pressure Location Lt brachial Position Sitting Intake Visit Reasons: OV PO LSG 10/03/2024 Allergies No Known Allergies Allergy (Verified 10/03/24 06:18) HPI Comments Details: Patient is a pleasant 44-year-old male returns to the office today in follow-up. He is 7 days post sleeve gastrectomy performed on 10/03/2024. He is tolerating 3 celebrate rebuild shakes with 2 scoops each in 12 oz of unsweetened almond milk at 10-1, 2-5, 6-9. He has moved his bowels and offers no complaints. He is tolerating 40-50 oz of fluids. [facility] Medical History Snores Back pain Pre-diabetes DJD (degenerative joint disease) GERD (gastroesophageal reflux disease) Non-insulin dependent type 2 diabetes mellitus BMI 34.0-34.9,adult Obesity Elevated cholesterol HTN (hypertension) Surgical History History of esophagogastroduodenoscopy (EGD) (07/03/24) Status post open reduction with internal fixation (ORIF) of fracture of ankle Hx of neck surgery History of total right hip replacement History of back surgery Family History Mother COPD (chronic obstructive pulmonary disease) Father COPD (chronic obstructive pulmonary disease) Daughter No problems noted. Daughter Hypoglycemia Son Depression Anxiety Social History Household Members: Significant Other Housing: House Are you a primary acute care nurse practitioner to a significant other at home: No Do you presently have visiting nurse or other home services: No Alcohol intake: never Patient Tobacco Use Status: Never used Tobacco e-Cigarette/Vaping Use: Never Used Current occupational status: employed Current occupation: [employer] Physical Exam GI Inspection: Yes incision (Clean, dry, intact.) Assessment & Plan Assessment & Plan (1) S/P laparoscopic sleeve gastrectomy: Code(s): Z98.84 - Bariatric surgery status Category: Surgical Plan: POD 7 s/p LSG on 10/03/[address] Zavala Weight loss prior to surgery was 10.6 pounds or 3.9 % TBWL. Original weight on 06/17/2024 was 270.8 pounds and op weight was 260.2 pounds. Be sure to text Dr Zavala exactly 1 week after surgery your weight from your home scale so he can adjust your meal plan. Continue meal plan until f/u w Radha in 2 weeks May shower, no submersion in bath for another week Continue abdominal binder with activity and exercise for the next 2 weeks. Exercise prior to surgery was walking outside 2 miles per day and may resume No abdominal exercises for 6 weeks post operatively Will be emailed link to post op video for review Reminded of the pace of drinking, 2 mL per minute, 1 oz/15 min. Coding Level of Care Code Global (77435) Diagnoses S/P laparoscopic sleeve gastrectomy Z98.84
--- OUTSIDE RECORDS SUMMARY | 2024-10-10 15:45 | XMS_ITS | Clinical Summary ---
Author Organization [facility] ity Address [address] [place] [address] Care Team Providers Care Executive Manager Name Role Phone Unavailable Primary Care Provider [...]
--- OUTSIDE RECORDS SUMMARY | 2024-10-10 15:45 | XMS_ITS | Clinical Summary ---
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 in [place] 06/16/2016 Essential hypertension 07/16/2020 Subclinical hypothyroidism 07/16/2020 Chronic bilateral low back pain with bilateral s ciatica 07/16/2020 Overview (11/30/2022): Sees [facility] for injection Chronic hip [...] 11/30/2021 TSH Monitoring 12/01/2023 11/30/2022, 07/15, 07/16/2020 [id number] ( season) 2024 11/30/2021, 11/21/2020, 10/23/2020 Imm-Influenza (#1) 2024 06/28/2022 CT Colonography 2024 Colonoscopy 2024 Colorectal Cancer Screening 2024 FIT/gFOBT 2024 Fecal DNA 2024 Flexible Sigmoidoscopy 2024 Diabetes HbA1c 06/14/2024 03/14/2024, 0404/2023, 05/13/2022, Additional history exists Alcohol and Drug Screen 08/14/2024 03/14/20 24, 07/20/2023, 02/21/2023, Additional history exists Depression Annual Screen 08/14/2024 03/14/2024 Serum Creatinine 03/14/2025 03/14/2024, , 12/01/2021, Additional history exists Tobacco Screening 03/14/2025 03/14/2024 Imm-DTaP/Tdap/Td (2 - Td or Tdap) 12/01/2031 022 HIV Screening Completed 12/01/2021, 07/16/2020 Hepatitis C Screening Completed 12/01/2021, 020 Imm-Pneumococcal Completed 04/03/2023, 11/30/2021 Procedures Procedure Name [...] clearance Diabetes mellitus without complication ([facility]) Essential hypertension Subclinical hypothyroidism from Last 3 Months or Most Recently Relevant to Health Maintenance Results * (ABNORMAL) HEMOGLOBIN GLYCOSYLATED A1C (03/14/2024 9:53 AM EDT) HEMOGLOBIN A1C 7.9(H) <5.7 % of total Hgb Scripped Comment: For someone without known diabetes, a [...] AM EDT 03/14/2024 9:53 AM EDT Elizabeth [employer] - 03/15/2024 4:38 AM EDT FASTING:YES us Justo HERNANDEZ[facility]te LAB - BLOOD DRAW Edited R esult - Final [employer] [address] [address], [employer] [address] [address] * CREATININE BLOOD (03/14/2024 9:53 AM EDT) CREATININE (blood) 0.91 0.60 - 1.29 mg/dL [facility] EGFR 107 > OR = 60 mL/min/1.7 3m2 [facility] Blood Blood / Unknown 03/14/2024 9 :53 AM EDT 03/14/2024 9:53 AM EDT Elizabeth [employer] - 03/15/2024 4:38 AM EDT FASTING:YES us Aloonee Emma ELECTRONICS TECH-C LAB - BLOOD DRAW Final Re sult Performing Organization Address [facility]/ZIP Co de Phone Number [facility] [address] [address], [facility] [address] [address] * THYROID CASCADING REFLEX PANEL (11/30/2022 4:12 PM EDT) Pathologist [facility] TSH 2.06 0.40 - 4.50 mIU/L [facility] Blood Blood / Unknown 11/30/2022 4 :12 PM EDT 11/30/2022 4:12 PM EDT Emanuel Amanda ELECTRONICS TECH LAB - BLOOD DRAW Edited R esult - Final Performing Organization Address [facility] Co de Phone Number [facility] [address] [address], [facility] [address] [address] * LIPID PANEL (11/30/2022 4:12 PM EDT) CHOLESTEROL, TOTAL 99 <200 mg/dL [facility] HDL CHOLESTEROL 49 > OR = 40 mg/dL [facility] TRIGLYCERIDES 70 <150 mg/dL [facility] LDL-CHOLESTEROL 35 99 mg/dL (calc) [facility] Comment: Reference range: <100 Desirable range <100 mg/dL for primary prevention; ?? <70 mg/dL for patients with CHD or diabetic patients with > or = 2 CHD risk factors. LDL-C is now calculated using the Derrek calculation, which is a validated novel method providing better accuracy than the Friedewald equation in the estimation of LDL-C. Vickey BONILLA et al. CHAPARRITA. 2013;310(19): 6798-1857 (http://education.Innovacene/faq/GHD526) CHOL/HDLC RATIO 2.0 <5.0 (calc) [facility] NON-HDL CHOLESTEROL 50 <130 mg/dL (calc) [facility] Comment: For patients with diabetes plus 1 major ASCVD risk factor, treating to a non-HDL-C goal of <100 mg/dL (LDL-C of <70 mg/dL) is considered a therapeutic option. Blood Blood / Unknown 11/30/2022 4 :12 PM EDT 11/30/2022 4:12 PM EDT [facility] - BLOOD DRAW Final Re sult Performing Organization Address [facility]/ZIP Co de Phone Number [facility] [address] [address], [facility] [address] [address] * HEPATITIS C AB W/RFLX HCV RNA, QT, RT PCR (12/01/2021 9:55 AM EDT) Pathologist [facility] HEPATITIS C ANTIBODY NON-REACT ANURAG NON-REACT ANURAG [facility] SIGNAL TO CUT-OFF 0.02 <1.00 [facility] Comment: HCV antibody was non-reactive. There is no laboratory evidence of HCV infection. In most cases, no further action is required. However, if recent HCV exposure is suspected, a test for HCV RNA (test code 93168) is suggested. For additional information please refer to http://education.Shop Hers/faq/DRE60w1 (This link is being provided for informational/ educational purposes only.) Blood Blood / Unknown 12/01/2021 9 :55 AM EDT 12/01/2021 9:56 AM EDT Narrative [facility] - 12/02/2021 4:29 AM EDT FASTING:YES [facility] LAB - BLOOD DRAW Edited R esult - Final Performing Organization Address [facility]/ZIP Co de Phone Number [facility] [address] [address], [facility] [address] [address] * HIV 1/2 AG & AB W/RFLX (4TH GEN) (12/01/2021 9:55 AM EDT) Pathologist [facility] HIV AG/AB, 4TH GEN NON-REAC TIVE NON-REAC TIVE Scripped Comment: HIV-1 antigen and HIV-1/HIV-2 antibodies were [...] ?? For additional information please refer to http://education.Shop Hers/faq/OBP016 (This link is being provided for informational/ educational purposes only.) The performance of this assay has not been clinically validated in patients less than 2 years old. Blood Blood / Unknown 12/01/2021 9 :55 AM EDT 12/01/2021 9:56 AM EDT Narrative [employer] - 12/02/2021 4:29 AM EDT FASTING:YES Emanuel Patel ELECTRONICS TECH LAB - BLOOD DRAW Final Re sult [facility] [employer] [address] [address], Sc[facility]pped [address] [address] * MICROALBUMIN/CREATININE RATIO, URINE, RANDOM (08/04/2021 12:11 PM EST) CREATININE, RANDOM URINE 233 20 - 320 mg/dL Scripped MICROALBUMIN 2.1 mg/dL [employer] Comment: Reference Range Not established MICROALBUMIN/CREA TININE RATIO, RANDOM URINE 9 <30 mcg/mg creat Scripped Comment: The ADA defines abnormalities in albumin [...] PM EST 08/04/2021 12:12 PM EST Laura Young ELECTRONICS TECH-C LAB - NO BLOOD DRAW Virgen faith Result [facility] [address] [address], [facility] [address] [address] from Last 3 Months or Most Recently Relevant to Health Maintenance [place] Care Teams Rn Procedure Relationship Specialty Start Date End Date Emanuel Patel FNP [address] [place] [address] PCP - General Family Medicine, GRAIN LOADER 06/10/20
== END 2024-10-10 14:03 | disposition home or self-care (01) ==
PROVIDERS: PCP Nurse Practitioner Family; Visit Provider Physician Assistant Surgical
DX: Z98.84 Bariatric surgery status (principal)
CPT/HCPCS: 99024

== ENCOUNTER → 2024-10-10 13:11 | Outpatient (BNVA) | payer MEDICARE, MEDICAID, SELFPAY | PROVIDERS: PCP Nurse Practitioner Family; Visit Provider Physician Assistant Surgical | DX: Z48.815 Encounter for surgical aftercare following surgery on the digestive system (principal); Z98.84 Bariatric surgery status | CPT/HCPCS: 99212 ==

== ENCOUNTER 2024-10-30 13:14 | Outpatient (AMB) | payer MEDICARE, MEDICAID, SELFPAY ==
--- NOTE | 2024-10-30 13:05 | MHC.OFFVISWM ---
VS Expanded 10/30/24 13:08 Height 6 ft 2 in Weight 240 lb BMI 30.8 Intake Visit Reasons: TV PO LSG 10/03/2024 Allergies No Known Allergies Allergy (Verified 10/03/24 06:18) Medication List - Last Reconciled 10/30/24 by SANJUANA Pepe atorvastatin 20 mg PO DAILY enalapril maleate 20 mg PO BID gabapentin 600 mg PO TID [Kneeling Scooter duration: lifetime] metformin ER 500 mg PO BID pantoprazole 40 mg PO DAILY sucralfate 10 mL PO BID HPI Comments Details: This?is a?44?yo male who is s/p LSG 10/03/2024. Presents for 1 month post op visit. No complaints of nausea, emesis, abdominal pain or reflux, or constipation. Doing great Checks BP daily- still taking enalapril. Off metformin- blood sugars well controlled. Present meal plan includes: 3 protein shakes- Celebrate 4:1 1 protein bar adequate hydration Exercise routine includes: does not have much time to go to the gym often- 1x/week treadmill- 400 calories PFS Medical History Snores Back pain Pre-diabetes DJD (degenerative joint disease) GERD (gastroesophageal reflux disease) Non-insulin dependent type 2 diabetes mellitus BMI 34.0-34.9,adult Obesity Elevated cholesterol HTN (hypertension) Surgical History History of esophagogastroduodenoscopy (EGD) (07/03/24) Status post open reduction with internal fixation (ORIF) of fracture of ankle Hx of neck surgery History of total right hip replacement History of back surgery Family History Mother COPD (chronic obstructive pulmonary disease) Father COPD (chronic obstructive pulmonary disease) Daughter No problems noted. 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[employer] [place] [facility] Telehealth Telehealth Platform: Telephone Location of provider rendering services: other Location of patient: address on file Patient Identification confirmed using: Name, : Yes Telehealth method: voice only Patient verbally consented to treatment: Yes Patient verbally consented to billing insurance company: Yes Patient informed of any privacy concerns related to visit: Yes Minutes spent on Phone/Video with Pt.: 16 Assessment & Plan Assessment & Plan (1) S/P laparoscopic sleeve gastrectomy: Code(s): Z98.84 - Bariatric surgery status Category: Surgical (2) Obesity: Code(s): E66.9 - Obesity, unspecified Category: Medical Qualifiers: Obesity type: due to excess calories Obesity classification: adult class 2 (BMI 35 - 39.9) Serious obesity comorbidity presence: with serious comorbidity Body mass index: BMI 35.0-35.9 Qualified Code(s): E66.812 - Obesity, class 2; E66.01 - Morbid (severe) obesity due to excess calories; Z68.35 - Body mass index [BMI] 35.0-35.9, adult Plan Discussed the importance of exercise in weight loss. Pt will discuss meal plan changes tomorrow with his weekly check in with Dr. Chen. Asked about starting applesauce , we discussed that any solid foods would more likely be scrambled egg or GY/CC. Reviewed no heavy lifting restriction until 6w postop. Continue to monitor BP and BS, dose according to parameters. RTC 1 month.
[2024-10-30 13:08] VITALS: BMI 30.8
--- OUTSIDE RECORDS SUMMARY | 2024-10-30 15:40 | XMS_ITS | Clinical Summary ---
Author Organization [facility] ity Address [address] [place] [address] Care Team Providers Care Sample Carrier Name Role Phone Unavailable Primary Care Provider [...]
--- OUTSIDE RECORDS SUMMARY | 2024-10-30 15:40 | XMS_ITS | Clinical Summary ---
Author Organization [facility] Address [address] [place] [address] Care Team Providers Care Cook Room Supervisor Name Role Phone Emanuel Patel [facility] Primary Care Provider [phone] [phone] Source Comments PLEASE NOTE, if this patient [...] meter monitoring kitIndications:D iabetes mellitus without complication ([facility]) as needed for blood glucose monitoring Dispense Freeystyle 1 Each 02/23/20 21 Active blood sugar diagnostic (FREESTYLE TEST) stripsIndication s:Diabetes mellitus without complication ([facility]) 1 Each as needed for high blood sugar Check glucose once daily 100 Each 5 12/01/19 22 Active lancets (FREESTYLE LANCETS) 28 gaugeIndications :Diabetes mellitus without complication ([facility]) Check glucose once daily 100 Each 5 [...] mcg/actuation nasal sprayIndications :Nasal congestion Place 1 [place] in both nostrils once daily for 14 [...] Active alcohol swabsIndications :Diabetes mellitus without complication ([facility]) Use to test blood glucose once daily. 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) Essential hypertension Subclinical hypothyroidism from Last 3 Months or Most Recently Relevant to Health Maintenance Results * (ABNORMAL) HEMOGLOBIN GLYCOSYLATED A1C (03/14/2024 9:53 AM EDT) HEMOGLOBIN A1C 7.9(H) <5.7 % of total Hgb [facility] [employer] Comment: For someone without known diabetes, a [...] AM EDT 03/14/2024 9:53 AM EDT Elizabeth [employer] - 03/15/2024 4:38 AM EDT FASTING:YES us Jusot HERNANDEZ-[facility]ridgette LAB - BLOOD DRAW Edited R esult - Final [employer] [address] [address], [employer] [address] [address] * CREATININE BLOOD (03/14/2024 9:53 AM EDT) CREATININE (blood) 0.91 0.60 - 1.29 mg/dL [employer] EGFR 107 > OR = 60 mL/min/1.7 3m2 [employer] Blood Blood / Unknown 03/14/2024 9 :53 AM EDT 03/14/2024 9:53 AM EDT Elizabeth [employer] - 03/15/2024 4:38 AM EDT FASTING:YES us Aloonee Emma SANDWICH AND DRINK CART OPERATOR-C LAB - BLOOD DRAW Final Re sult Performing Organization Address [facility]/ZIP Co de Phone Number [employer] [address] [address], [employer] [address] [address] * THYROID CASCADING REFLEX PANEL (11/30/2022 4:12 PM EDT) Pathologist [facility] TSH 2.06 0.40 - 4.50 mIU/L [facility] Blood Blood / Unknown 11/30/2022 4 :12 PM EDT 11/30/2022 4:12 PM EDT Emanuel Amanda SANDWICH AND DRINK CART OPERATOR LAB - BLOOD DRAW Edited R esult - Final Performing Organization Address [facility] Co de Phone Number [employer] [address] [address], [employer] [address] [address] * LIPID PANEL (11/30/2022 4:12 PM EDT) CHOLESTEROL, TOTAL 99 <200 mg/dL [facility] HDL CHOLESTEROL 49 > OR = 40 mg/dL [employer] TRIGLYCERIDES 70 <150 mg/dL [facility] LDL-CHOLESTEROL 35 99 mg/dL (calc) [facility] Comment: Reference range: <100 Desirable range <100 mg/dL for primary prevention; ?? <70 mg/dL for patients with CHD or diabetic patients with > or = 2 CHD risk factors. LDL-C is now calculated using the Derrek calculation, which is a validated novel method providing better accuracy than the Friedewald equation in the estimation of LDL-C. Vickey BONILLA et al. CHAPARRITA. 2013;310(19): 0508-3302 (http://education.AgileJ Limited/faq/REP570) CHOL/HDLC RATIO 2.0 <5.0 (calc) [facility] NON-HDL CHOLESTEROL 50 <130 mg/dL (calc) [facility] Comment: For patients with diabetes plus 1 major ASCVD risk factor, treating to a non-HDL-C goal of <100 mg/dL (LDL-C of <70 mg/dL) is considered a therapeutic option. Blood Blood / Unknown 11/30/2022 4 :12 PM EDT 11/30/2022 4:12 PM EDT [facility] - BLOOD DRAW Final Re sult Performing Organization Address [facility]/ZIP Co de Phone Number [employer] [address] [address], [employer] [address] [address] * HEPATITIS C AB W/RFLX HCV RNA, QT, RT PCR (12/01/2021 9:55 AM EDT) Pathologist [facility] HEPATITIS C ANTIBODY NON-REACT ANURAG NON-REACT ANURAG [facility] SIGNAL TO CUT-OFF 0.02 <1.00 [facility] Comment: HCV antibody was non-reactive. There is no laboratory evidence of HCV infection. In most cases, no further action is required. However, if recent HCV exposure is suspected, a test for HCV RNA (test code 70891) is suggested. For additional information please refer to http://education.Web Performance/faq/LST31n8 (This link is being provided for informational/ educational purposes only.) Blood Blood / Unknown 12/01/2021 9 :55 AM EDT 12/01/2021 9:56 AM EDT Narrative [facility] - 12/02/2021 4:29 AM EDT FASTING:YES [facility] LAB - BLOOD DRAW Edited R esult - Final Performing Organization Address [facility]/ZIP Co de Phone Number [employer] [address] [address], [employer] [address] [address] * HIV 1/2 AG & AB W/RFLX (4TH GEN) (12/01/2021 9:55 AM EDT) Pathologist [facility] HIV AG/AB, 4TH GEN NON-REAC TIVE NON-REAC TIVE [employer] Comment: HIV-1 antigen and HIV-1/HIV-2 antibodies were [...] ?? For additional information please refer to http://education.Web Performance/faq/CIL052 (This link is being provided for informational/ educational purposes only.) The performance of this assay has not been clinically validated in patients less than 2 years old. Blood Blood / Unknown 12/01/2021 9 :55 AM EDT 12/01/2021 9:56 AM EDT Narrative [employer] - 12/02/2021 4:29 AM EDT FASTING:YES Emanuel aPtel SANDWICH AND DRINK CART OPERATOR LAB - BLOOD DRAW Final Re sult [facility] [address] [address], [employer] [address] [address] * MICROALBUMIN/CREATININE RATIO, URINE, RANDOM (08/04/2021 12:11 PM EST) CREATININE, RANDOM URINE 233 20 - 320 mg/dL [facility] [employer] MICROALBUMIN 2.1 mg/dL [employer] Comment: Reference Range Not established MICROALBUMIN/CREA TININE RATIO, RANDOM URINE 9 <30 mcg/mg creat [employer] Comment: The ADA defines abnormalities in albumin [...] EST 08/04/2021 12:12 PM EST Laura Young SANDWICH AND DRINK CART OPERATOR-C LAB - NO BLOOD DRAW [employer] faith Result [facility] [address] [address], [facility] [address] [address] from Last 3 Months or Most Recently Relevant to Health Maintenance Insurance [place] Care Teams Cook Room Supervisor Relationship Specialty Start Date End Date Emanuel Patel FNP [address] [place] [address] PCP - General Family Medicine, RETAIL SERVICE REPRESENTATIVE 06/10/20
== END 2024-10-30 13:20 | disposition home or self-care (01) ==
LOC: HO.HBS 13:14
PROVIDERS: PCP Nurse Practitioner Family; Visit Provider Physician Assistant Surgical
DX: E66.811 Obesity, class 1 (principal); Z68.30 Body mass index [BMI] 30.0-30.9, adult; Z90.3 Acquired absence of stomach [part of]; Z98.84 Bariatric surgery status
CPT/HCPCS: 99024

== ENCOUNTER → 2024-10-30 13:14 | Outpatient (BNVA) | payer MEDICARE, MEDICAID, SELFPAY | PROVIDERS: PCP Nurse Practitioner Family; Visit Provider Physician Assistant Surgical ==

== ENCOUNTER 2024-11-08 03:03 | Emergency (ER) | payer MEDICARE, MEDICAID, SELFPAY ==
--- NOTE | ~2024-11-08 | CT_ITS ---
CLINICAL HISTORY: Right flank pain? Stone CT abdomen and pelvis without contrast Comparison: None Findings: The lung bases are clear. Unremarkable gallbladder and solid organs. There is punctate left renal parenchymal calculi. There is minimal right hydroureteronephrosis secondary to a 4.6 mm calculus at the level of the L3 vertebra. No bowel obstruction, pneumoperitoneum, or pneumatosis. Pelvic contents unremarkable. The appendix is not visualized with no imaging evidence of appendicitis The bones are intact. IMPRESSION: Minimal right hydroureteronephrosis secondary to a mid ureteral 4.6 mm calculus.. This document has been electronically signed by: Enrique Chacko MD on 11/08/2024 05:41:02
[2024-11-08 03:05] VITALS: BP 111/74; PULSE 71; RESP 18; TEMP 36.7; O2SAT 97; BMI 29.8
[2024-11-08 03:23] LABS: Basophils Percent Auto 0.5 % (0-2); Eosinophils Absolute Auto 0.2 X10*3/uL (0.0-0.4); Eosinophils Percent Auto 3.3 % (0-4); Hematocrit 44.2 % (42.0-52.0); Hemoglobin 15.5 g/dl (14.0-18.0); Imm Gran Abs Auto 0.01 X10*3/uL (0.00-0.03); Imm Gran Pct Auto 0.2 % (0.0-0.4); Lymphocytes Absolute Auto 2.4 X10*3/uL (1.2-4.9); Lymphocytes Percent Auto 42.1 % (20-40); MANUAL DIFF FLAG NO; Mean Corpuscular HGB Conc 35.1 g/dl (31.0-36.0); Mean Corpuscular Hemoglobin 31.4 pg (27.0-33.0); Mean Corpuscular Volume 89.5 fL (80.0-98.0); Mean Platelet Volume 11.6 fL (9.4-12.4); Monocytes Absolute Auto 0.7 X10*3/uL (0.1-1.2); Monocytes Percent Auto 11.6 % (2-11); Neutrophils Absolute Auto 2.5 x10*3/uL (2.0-8.3); Neutrophils Percent Auto 42.3 % (45-73); Platelet Count 209 X10*3/uL (160-400); Red Blood Count 4.94 X10*6/uL (4.60-5.80); Red Cell Distribution Width 13.3 % (11.0-16.0); White Blood Count 5.8 X10*3/uL (4.8-10.8)
[2024-11-08 03:49] LABS: Alanine Aminotransferase 24 U/L (0-40); Albumin Level 4.1 g/dL (3.5-5.0); Anion Gap 16 (12-20); Aspartate Amino Transferase 25 U/L (5-37); Bilirubin Total 0.8 mg/dL (0.0-1.0); Blood Urea Nitrogen 8 mg/dL (9-16); Calcium 9.4 mg/dL (8.4-10.2); Carbon Dioxide 25 mmol/L (22-29); Chloride 103 mmol/L (96-108); Creatinine Clr Calc Pharmacy 165.2; Estimated Glomerular Filt Rate > 60; Glucose Random 107 mg/dL (60-115); Potassium 3.8 mmol/L (3.3-5.1); Sodium 140 mmol/L (135-145); Total Protein 7.3 g/dL (6.5-8.0)
[2024-11-08 03:54] LABS: Appearance Urine Turbid; Color Urine RED; Glucose Urine UA Negative (Negative); Leukocyte Esterase Urine Negative (Negative); Nitrite Urine Negative (Negative); Specific Gravity - Urine >= 1.030 (1.005-1.025); UMIC TRIGGER UACC YES; Urine Blood Large (3+) (Negative); Urine Ketones 40 mg/dL (Negative); Urine Protein 100 (2+) mg/dL (Neg-Trace)
[2024-11-08 03:55] LABS: RBC Urine >20 /HPF (0-2); WBC Urine 0-5 /HPF (0-5)
[2024-11-08 03:56] LABS: Bacteria Urine Trace (None Seen); Hyaline Casts Urine 0-2 /LPF (0-2); Squamous Epithelial Cell Urine 0-2 /HPF (0-2)
[2024-11-08 04:13] LABS: Alkaline Phosphatase 94 U/L (39-117)
--- NOTE | 2024-11-08 04:28 | ED.ABDPAIN ---
HPI - Abdominal Pain General Chief Complaint: Abdominal Pain Stated Complaint: uti pain Time Seen by Provider: 11/08/24 04:28 Source: patient Mode of arrival: ambulatory Limitations: no limitations History of Present Illness ED Provider: HPI narrative: Patient with no prior history of kidney stone noticed hematuria for last 5 days seen the PCP was started on Cipro which she took on 11/06 since yesterday noticed pain in the right flank radiating to the right lower abdomen with nausea no vomiting no fever no chills hematuria still intermittent does have a family history of kidney stone Related Data Home Medications ?Medication ?Instructions ?Recorded ?Confirmed atorvastatin 20 mg tablet 20 mg PO DAILY 06/02/23 10/30/24 enalapril maleate 20 mg tablet 20 mg PO BID 06/02/23 10/30/24 gabapentin 600 mg tablet 600 mg PO TID 06/02/23 10/30/24 metformin 500 mg tablet,extended 500 mg PO BID 06/02/23 10/30/24 release 24 hr Previous Rx's ?Medication ?Instructions ?Recorded Kneeling Scooter #1 ea 06/02/23 sucralfate 100 mg/mL oral 10 ml PO BID #600 mL 08/12/24 suspension pantoprazole 40 mg tablet,delayed 40 mg PO DAILY #90 tabs 10/07/24 release ibuprofen 600 mg tablet 600 mg PO Q6H PRN fever or pain 11/08/24 #30 tabs oxycodone 5 mg tablet 5 mg PO Q6H PRN pain #20 tabs 11/08/24 tamsulosin 0.4 mg capsule (Flomax) 0.4 mg PO BEDTIME #10 caps 11/08/24 Allergies Allergy/AdvReac Type Severity Reaction Status Date / Time No Known Allergies Allergy Verified 11/08/24 03:07 Review of Systems Review of Systems Yes all other systems are reviewed and are negative [facility] Past Medical History Medical History BMI 32.0-32.9,adult BMI 35.0-35.9,adult Esophagitis determined by biopsy Closed left ankle fracture Snores Back pain Pre-diabetes DJD (degenerative joint disease) GERD (gastroesophageal reflux disease) Non-insulin dependent type 2 diabetes mellitus BMI 34.0-34.9,adult Obesity Elevated cholesterol HTN (hypertension) Surgical History History of esophagogastroduodenoscopy (EGD) (07/03/24) Status post open reduction with internal fixation (ORIF) of fracture of ankle Hx of neck surgery History of total right hip replacement History of back surgery Family History Family History Mother COPD (chronic obstructive pulmonary disease) Father COPD (chronic obstructive pulmonary disease) Daughter No problems noted. Daughter Hypoglycemia Son Depression Anxiety Social History Social History Household Members: Significant Other Housing: House Are you a primary care connector to a significant other at home: No Do you presently have visiting nurse or other home services: No Alcohol intake: current Alcohol intake frequency: holidays/special occasions only Patient Tobacco Use Status: Never used Tobacco Smoked in Last 30 Days: No e-Cigarette/Vaping Use: Never Used Use of substances other than those prescribed or required for medical reasons: No Advance Directives: Yes Advance Directives Information Provided: Yes Advance Directives on File: No Current occupational status: employed 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 Oriented X3. Mild distress Eyes: PERRLA, No Nystagmus ENT: Pharynx normal. Oral Mucosa moist Neck: Normal inspection. Neck supple. CVS: Normal heart rate and rhythm. Pulses normal. Respiratory: No respiratory distress. Equal air entry bilateral, no wheezing/rales/rhonchi Abdomen: Soft and nontender. Bowel sounds are present, no mass palpable, right CVA tenderness Skin: Skin warm and dry. Normal skin color. Normal skin turgor. Extremities: No lower extremity edema. No calf tenderness Neuro: Oriented X 3. No motor deficit. No sensory deficit.No cerebellar signs , cranial nerves II-XII intact Medical Decision Making Medical Decision Making [facility] Narrative: Patient with right mid ureteric 4.5 mm stone with mild hydro feeling much better after pain medication will discharge patient home on pain medication Flomax advised drink plenty of fluids follow with urologist Differential Diagnosis Differential Diagnoses: The differential diagnosis associated with the presentation includes Lab Data [facility] Lab Attestation statement: I reviewed the patient's lab results. 11/08/24 03:14 11/08/24 03:14 Labs: Lab Results 11/08/24 11/08/24 Range/Units 03:14 03:16 WBC 5.8 (4.8-10.8) X10*3/uL RBC 4.94 (4.60-5.80) X10*6/uL Hgb 15.5 (14.0-18.0) g/dl Hct 44.2 (42.0-52.0) % MCV 89.5 (80.0-98.0) fL MCH 31.4 (27.0-33.0) pg MCHC 35.1 (31.0-36.0) g/dl RDW 13.3 (11.0-16.0) % Plt Count 209 (160-400) X10*3/uL MPV 11.6 (9.4-12.4) fL Immature Gran % (Auto) 0.2 (0.0-0.4) % Neut % (Auto) 42.3 L (45-73) % Lymph % (Auto) 42.1 H (20-40) % [place] % (Auto) 11.6 H (2-11) % Eos % (Auto) 3.3 (0-4) % Baso % (Auto) 0.5 (0-2) % Lymph # (Auto) 2.4 (1.2-4.9) X10*3/uL [place] # (Auto) 0.7 (0.1-1.2) X10*3/uL Eos # (Auto) 0.2 (0.0-0.4) X10*3/uL Baso # (Auto) 0.0 (0.0-0.2) X10*3/uL Abs Immat Gran (auto) 0.01 (0.00-0.03) X10*3/uL Absolute Neuts (auto) 2.5 (2.0-8.3) x10*3/uL Absolute Nucleated RBC 0.000 (0.0-0.012) X10*3/uL Nucleated RBC % (auto) 0.0 (0.0-0.2) /100WBC Sodium 140 (135-145) mmol/L Potassium 3.8 (3.3-5.1) mmol/L Chloride 103 (96-108) mmol/L Carbon Dioxide 25 (22-29) mmol/L Anion Gap 16 (12-20) BUN 8 L (9-16) mg/dL Creatinine 0.73 (0.5-1.4) mg/dL Estim Creat Clear Calc 165.2 Estimated GFR > 60 Random Glucose 107 (60-115) mg/dL Calcium 9.4 (8.4-10.2) mg/dL Total Bilirubin 0.8 (0.0-1.0) mg/dL AST 25 (5-37) U/L ALT 24 (0-40) U/L Alkaline Phosphatase 94 (39-117) U/L Total Protein 7.3 (6.5-8.0) g/dL Albumin 4.1 (3.5-5.0) g/dL Urine Color RED Urine Appearance Turbid Urine pH 6.0 (5.0-9.0) Ur Specific [place] >= 1.030 H (1.005-1.025) Urine Protein 100 (2+) H (Neg-Trace) mg/dL Urine Glucose (UA) Negative (Negative) mg/dL Urine Ketones 40 (Negative) mg/dL Urine Blood Large (3+) H (Negative) Urine Nitrite Negative (Negative) Ur Leukocyte Esterase Negative (Negative) Urine RBC >20 H (0-2) /HPF Urine WBC 0-5 (0-5) /HPF Ur Squamous Epith Cells 0-2 (0-2) /HPF Urine Bacteria Trace (None Seen) Hyaline Casts 0-2 (0-2) /LPF Radiology Impression Discussion of test interpretation with radiology: I have reviewed the radiologist's reading. Radiologist Impression: [address] [address] [address] Scan Report Signed Patient: Arcadio Tavares MR#: [id number] : 1980 Acct:[id number] Age/Sex: 44 / M ADM Date: 11/08/24 Loc: HO.ED Attending Dr: Ordering Physician: Kt Garcia MD Date of Service: 11/08/24 Procedure(s): CT abdomen pelvis wo IV con Accession Number(s): [id number] cc: Shawna Cuevas; Kt Garcia MD~ Report Number: [id number]: Total DLP = 783.00 mGy-cm CLINICAL HISTORY: Right flank pain? Stone CT abdomen and pelvis without contrast Comparison: None Findings: The lung bases are clear. Unremarkable gallbladder and solid organs. There is punctate left renal parenchymal calculi. There is minimal right hydroureteronephrosis secondary to a 4.6 mm calculus at the level of the L3 vertebra. No bowel obstruction, pneumoperitoneum, or pneumatosis. Pelvic contents unremarkable. The appendix is not visualized with no imaging evidence of appendicitis The bones are intact. IMPRESSION: Minimal right hydroureteronephrosis secondary to a mid ureteral 4.6 mm calculus.. This document has been electronically signed by: Enrique Chacko MD on 11/08/2024 05:41:02 Medications Administered Discontinued Medications Generic Name Dose Route Start Last Admin Trade Name Freq PRN Reason Stop Dose Admin Sodium Chloride 1,000 mls @ 999 mls/hr 11/08/24 04:34 11/08/24 06:32 Ns IV 11/08/24 05:34 Infused .Q1H1M ONE Infusion Ketorolac Tromethamine 30 mg 11/08/24 04:34 11/08/24 05:03 Ketorolac Tromethamine 30 Mg/Ml Vial IVPUSH 11/08/24 04:35 30 mg ONCE ONE Administration Morphine Sulfate 4 mg 11/08/24 04:34 11/08/24 05:03 Morphine Sulfate 4 Mg/Ml Cartridge IVPUSH 11/08/24 04:35 4 mg ONCE ONE Administration Protocol Ondansetron HCl 4 mg 11/08/24 04:34 11/08/24 05:01 Ondansetron Hcl 4 Mg/2 Ml Vial IVPUSH 11/08/24 04:35 4 mg ONCE ONE Administration Tamsulosin HCl 0.4 mg 11/08/24 05:41 11/08/24 06:01 Tamsulosin Hcl 0.4 Mg Capsule PO 11/08/24 05:42 0.4 mg ONCE ONE Administration Discharge Plan Discharge Clinical Impression: Calculus of kidney Patient Disposition: Home, Self-Care Instructions: Kidney Stones (ED), Low Oxalate Diet (ED) Additional Instructions: Drink plenty of fluids Do not eat food containing oxalate You have small stone 4.5 mm on the right kidney tube likely will pass Take Flomax 1 tablet every night till you pass the stone Pain medication as prescribed Follow up with PCP/urologist Prescriptions: New ibuprofen 600 mg tablet 600 mg PO Q6H PRN (Reason: fever or pain) Qty: 30 0RF oxycodone 5 mg tablet 5 mg PO Q6H PRN (Reason: pain) Qty: 20 0RF Rx Instructions: Partial Fill upon patient request. tamsulosin [Flomax] 0.4 mg capsule 0.4 mg PO BEDTIME Qty: 10 0RF No Action (DME) Kneeling Scooter See Rx Instructions .ROUTE .MEDSUPPLY Qty: 1 0RF Rx Instructions: duration: lifetime pantoprazole 40 mg tablet,delayed release (DR/EC) 40 mg PO DAILY Qty: 90 0RF sucralfate 100 mg/mL suspension 10 ml PO BID Qty: 600 2RF enalapril maleate 20 mg tablet 20 mg PO BID atorvastatin 20 mg tablet 20 mg PO DAILY gabapentin 600 mg tablet 600 mg PO TID metformin 500 mg tablet extended release 24 hr 500 mg PO BID Referrals: Tin Renner MD [Physician] - 1 week Stand Alone Forms: Work/School Release Interventions: ED Discharge Assessment Last Done: 11/08/24 06:27 Print Language: Citizen [place]
[2024-11-08] MEDS: ondansetron HCL 4 MG/2 ML VIAL IVPUSH (05:01)
[2024-11-08] MEDS: Ketorolac Tromethamine 30 MG/ML VIAL IVPUSH (05:03)
[2024-11-08] MEDS: Morphine Sulfate 4 MG/ML CARTRIDGE IVPUSH (05:03)
[2024-11-08] MEDS: 0.9 % Sodium Chloride 1,000 ML 999 ML IV (05:08)
[2024-11-08] MEDS: Tamsulosin HCL 0.4 MG CAPSULE PO (06:01)
[2024-11-08 06:12] VITALS: BP 111/77; PULSE 62; RESP 18; TEMP 36.8; O2SAT 99
[2024-11-08 06:27] VITALS: BP 111/77; PULSE 62; RESP 18; TEMP 36.8; O2SAT 99
== END 2024-11-08 07:05 | disposition home or self-care (01) ==
PROVIDERS: Emergency Provider Internal Medicine
DX: N13.2 Hydronephrosis with renal and ureteral calculous obstruction (principal); R10.31 Right lower quadrant pain; E11.9 Type 2 diabetes mellitus without complications; I10 Essential (primary) hypertension; E78.5 Hyperlipidemia, unspecified; Z79.84 Long term (current) use of oral hypoglycemic drugs; Z79.899 Other long term (current) drug therapy; Z79.02 Long term (current) use of antithrombotics/antiplatelets
CPT/HCPCS: 36415; 74176; 80053; 81001; 85025; 96361; 96374; 96375; 99284; J1885; J2270; J2405

== ENCOUNTER → 2024-11-08 04:34 | Outpatient (BNV) | payer MEDICARE, MEDICAID, SELFPAY | PROVIDERS: Emergency Provider Internal Medicine; Visit Provider Specialist | DX: R10.9 Unspecified abdominal pain (principal) | CPT/HCPCS: 74176 ==

== ENCOUNTER → 2024-11-13 09:43 | Outpatient (BNVA) | payer MEDICARE, MEDICAID, SELFPAY | PROVIDERS: Visit Provider Physician Assistant Surgical ==

== ENCOUNTER 2024-12-31 11:07 | Outpatient (AMB) | payer MEDICARE, MEDICAID, SELFPAY ==
--- NOTE | 2024-12-31 11:09 | A.OFFVIS_ITS ---
Intake Visit Reasons: bilateral kidney stones Intake Note: Pt presents to the office today for a new patient visit for bilateral kidney stones. Allergies No Known Allergies Allergy (Verified 12/31/24 11:10) HPI Comments Details: Arcadio is a pleasant male. He is a patient of Dr. Cuevas. He is seen for the following urologic conditions - nephrolithiasis Follow-up from initial presentation to emergency room Nephrolithiasis Initial presentation 11/05 Right side 3 mm stone Effective medical expulsion therapy CT scan - 4.6 mm mid right ureteric stone, punctate stone right side Reassurance provided Interval surveillance Encourage fluid intake with lemon Did have prior gastric sleeve so can only tolerate small volumes of fluid at a time [facility] Medical History BMI 32.0-32.9,adult BMI 35.0-35.9,adult Esophagitis determined by biopsy Closed left ankle fracture Snores Back pain Pre-diabetes DJD (degenerative joint disease) GERD (gastroesophageal reflux disease) Non-insulin dependent type 2 diabetes mellitus BMI 34.0-34.9,adult Obesity Elevated cholesterol HTN (hypertension) Surgical History History of esophagogastroduodenoscopy (EGD) (07/03/24) Status post open reduction with internal fixation (ORIF) of fracture of ankle Hx of neck surgery History of total right hip replacement History of back surgery Family History Mother COPD (chronic obstructive pulmonary disease) Father COPD (chronic obstructive pulmonary disease) Daughter No problems noted. 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[employer] [employer] Review of Systems Const Denies chills and Denies fever(s) Card Reports no additional complaints and Denies syncope Resp Denies cough GI Denies abdominal pain and Denies heartburn Reports as per HPI and Denies change in libido Neuro Denies syncope Psych Denies change in libido Endo Denies change in libido Physical Exam Const General: cooperative, healthy appearing, comfortable and no acute distress Orientation/consciousness: patient oriented x3 HEENT Face and sinus: Yes normal facial exam Mouth: moist mucous membranes Neck Neck: Yes normal visual inspection, Yes full ROM and Yes trachea midline Chest Chest palpation & inspection: normal inspection of the chest Resp Effort & Inspection: normal respiratory effort, able to speak in complete sentences and no respiratory distress GI Inspection: Yes normal to inspection Back/Spine/Pelvis Cervical Spine: normal cervical lordosis Thoracic/Lumbar Spine: thoracic and lumbar spine normal to inspection Skin General skin exam: no rashes or lesions noted Neuro General: patient oriented x3, gait normal, tone normal and moves all extremities Extrem General: Yes normal to inspection and Yes capillary refill normal Assessment & Plan Assessment & Plan (1) Calculus of kidney: Code(s): N20.0 - Calculus of kidney Category: Medical Plan Six-month follow-up office surveillance imaging Patient Instructions: This note is constructed using voice recognition software. While every effort has been made to ensure accuracy structural analysis engineer errors may have been included. Imaging studies, laboratory and physical exam results were discussed and reviewed in detail. No major barriers to patient understanding were identified. An opportunity to ask questions regarding the treatment plan was provided. All questions were answered. The patient expressed understanding and agreement with the above treatment plan. The patient is aware they should contact our office by phone for worsening of th eir current condition or the appearance of new urologic symptoms. Compliance is encouraged with any medications and followup testing that is ordered. It is a privilege to participate in the urologic care of your patient. If you have any questions or concerns regarding treatment for the above conditions, or other urologic issues, please do not hesitate to contact me. The office telephone contact is [phone]. Sincerely, Dr Tin Renner MD, [facility] - Urology Compassionate Specialist Care for the Genitourinary System Coding Level of Care Code New Pt Level 3 (51404) Diagnoses Calculus of kidney N20.0
--- OUTSIDE RECORDS SUMMARY | 2024-12-31 12:26 | XMS_ITS | Clinical Summary ---
Author Organization [facility] Address [address] [place] [address] Care Team Providers Care Emergency Veterinarian Name Role Phone Emanuel Patel [facility] Primary Care Prov ider Source Comments PLEASE NOTE, if this patient [...] meter monitoring kitIndications:D iabetes mellitus without complication (HCC-CMS) as needed for blood glucose monitoring Dispense Freeystyle 1 Each 02/23/20 21 Active blood sugar diagnostic (FREESTYLE TEST) stripsIndication s:Diabetes mellitus without complication (HCC-CMS) 1 Each as needed for high blood sugar Check glucose once daily 100 Each 5 12/01/19 22 Active lancets (FREESTYLE LANCETS) 28 gaugeIndications :Diabetes mellitus without complication (HCC-CMS) Check glucose once daily 100 Each 5 [...] mcg/actuation nasal sprayIndications :Nasal congestion Place 1 [place] in both nostrils once daily for 14 [...] Active alcohol swabsIndications :Diabetes mellitus without complication ([facility]) Use to test blood glucose [...] 24 hr tabletIndication s:Diabetes mellitus without complication ([facility]) TAKE 1 TABLET BY MOUTH TWICE A [...] (BMI) of 37.0 to 37.9 in adult ([facility]) 08/04/2021 Diabetes mellitus without complication (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 in [place] 06/16/2016 Essential hypertension 07/16/2020 Subclinical hypothyroidism 07/16/2020 Chronic bilateral low back pain with bilateral s ciatica 07/16/2020 Overview (11/30/2022): Sees [facility] for injection Chronic hip pain, bilateral 07/16/2020 Overview (07/16/2020): Hx right hip replacement Immunizations Immunization Administration Dates Next Due Flu, Preservative Free 06/28/2022 Moderna COVID-19 Vaccine, re d cap blue label, 12+ Primary Series 11/30/2021,11/21/2020,10/23/2020 PNEUMOCOCCAL CONJUGATE PCV 20 (Prevnar) 04/03/20 23 PNEUMOCOCCAL POLYSACCHARIDE PPV23 (Pneumovax 23) 11/30/2021 TDAP 11/30/2021 Family History Medical History [...] Health Maintenance Due Date Last Done Comments Anxiety Screening 1979 Dental Examination 1979 Retinopathy Screening 1992 Imm-Hepatitis B (1 of 3 - 19 + 3-dose series) 1998 Urine Albumin Creatinine Rat io Screening 08/04/2022 08/04/2021 Diabetes Foot Exam 12/01/2023 11/30/2022, 0 11/30/2021, 10/14/2020 Lipid Screening 12/01/2023 11/30/2022, 11/13, 08/04/2021, Additional history exists Medicare Annual Wellness Visit 12/01/2023 11/30/2022 , 11/30/2021 TSH Monitoring 12/01/2023 11/30/2022, 07/15, 07/16/2020 [id number] ( season) 2024 11/30/2021, 11/21/2020, 10/23/2020 Imm-Influenza [...] EST Pre-operative clearance Diabetes mellitus without complication ([facility]) Essential hypertension Subclinical hypothyroidism from Last 3 Months or Most Recently Relevant to Health Maintenance Results * (ABNORMAL) HEMOGLOBIN GLYCOSYLATED A1C (03/14/2024 9:53 AM EDT) HEMOGLOBIN A1C 7.9(H) <5.7 % of total Hgb [facility] Comment: For someone without known diabetes, a [...] AM EDT 03/14/2024 9:53 AM EDT Elizabeth [facility] - 03/15/2024 4:38 AM EDT FASTING:YES Justo Carter MEDICAL CODING TECHNICIAN-C LAB - BLOOD DRAW Edited R esult - Final [facility] [address] [place] [id number], [facility] [address] [place] [phone] * CREATININE, SERUM (03/14/2024 9:53 AM EDT) CREATININE (blood) 0.91 0.60 - 1.29 mg/dL [facility] EGFR 107 > OR = 60 mL/min/1.7 3m2 [facility] Blood Blood / Unknown 03/14/2024 9 :53 AM EDT 03/14/2024 9:53 AM EDT Narrative [facility] - 03/15/2024 4:38 AM EDT FASTING:YES Justo Carter MEDICAL CODING TECHNICIAN-C LAB - BLOOD DRAW Final Re sult Performing Organization Address City/[facility]/ZIP Co de Phone Number [facility] [address] [address], [facility] [address] [address] * THYROID CASCADING REFLEX PANEL (11/30/2022 4:12 PM EDT) Pathologist [facility] TSH 2.06 0.40 - 4.50 mIU/L [facility] Blood Blood / Unknown 11/30/2022 4 :12 PM EDT 11/30/2022 4:12 PM EDT Emanuel Carrillo Amanda MEDICAL CODING TECHNICIAN LAB - BLOOD DRAW E dited Result - Final Performing Organization Address [facility] Co de Phone Number [facility] [address] [address], [facility] [address] [address] * LIPID PANEL (11/30/2022 4:12 PM EDT) Pathologist [facility] CHOLESTEROL, TOTAL 99 <200 mg/dL [facility] HDL CHOLESTEROL 49 > OR = 40 mg/dL [facility] TRIGLYCERIDES 70 <150 mg/dL [facility] LDL-CHOLESTEROL 35 99 mg/dL (calc) [facility] Comment: Reference range: <100 Desirable range <100 mg/dL for primary prevention; ?? <70 mg/dL for patients with CHD or diabetic patients with > or = 2 CHD risk factors. LDL-C is now calculated using the Derrek calculation, which is a validated novel method providing better accuracy than the Friedewald equation in the estimation of LDL-C. Vickey SS et al. CHAPARRITA. 2013;310(19): 1286-6166 (http://education.Re5ult/faq/JMX568) CHOL/HDLC RATIO 2.0 <5.0 (calc) Dress Code [facility] NON-HDL CHOLESTEROL 50 <130 mg/dL (calc) [facility] Comment: For patients with diabetes plus 1 major ASCVD risk factor, treating to a non-HDL-C goal of <100 mg/dL (LDL-C of <70 mg/dL) is considered a therapeutic option. Blood Blood / Unknown 11/30/2022 4 :12 PM EDT 11/30/2022 4:12 PM EDT Emanuel Patel [facility] LAB - BLOOD DRAW F inal Result Performing Organization Address [facility]/ZIP Co de Phone Number [facility] [address] [address], [facility] [facility] [address] [address] * HEPATITIS C AB W/RFLX HCV RNA, QT, RT PCR (12/01/2021 9:55 AM EDT) HEPATITIS C ANTIBODY NON-REACT ANURAG NON-REACT ANURAG [facility] SIGNAL TO CUT-OFF 0.02 <1.00 Dress Code [facility] Comment: HCV antibody was non-reactive. There is no laboratory evidence of HCV infection. In most cases, no further action is required. However, if recent HCV exposure is suspected, a test for HCV RNA (test code 95109) is suggested. For additional information please refer to http://education.PrivateMarkets/faq/PWV74z7 (This link is being provided for informational/ educational purposes only.) Blood Blood / Unknown 12/01/2021 9 :55 AM EDT 12/01/2021 9:56 AM EDT Narrative [facility] - 12/02/2021 4:29 AM EDT FASTING:YES Emanuel Patel [facility] LAB - BLOOD DRAW E dited Result - Final Performing Organization Address [facility] Co de Phone Number [facility] [address] [address], [employer] [address] [address] * HIV 1/2 AG & AB W/RFLX (4TH GEN) (12/01/2021 9:55 AM EDT) Pathologist [facility] HIV AG/AB, 4TH GEN NON-REAC TIVE NON-REAC TIVE [facility] Comment: HIV-1 antigen and HIV-1/HIV-2 antibodies were [...] ?? For additional information please refer to http://education.PrivateMarkets/faq/RQR217 (This link is being provided for informational/ educational purposes only.) The performance of this assay has not been clinically validated in patients less than 2 years old. Blood Blood / Unknown 12/01/2021 9 :55 AM EDT 12/01/2021 9:56 AM EDT Narrative [facility] - 12/02/2021 4:29 AM EDT FASTING:YES Emanuel Patel [facility] LAB - BLOOD DRAW F inal Result [facility] [address] [address], [facility] [address] [place] [address],[place] [address] * MICROALBUMIN/CREATININE RATIO, URINE, RANDOM (08/04/2021 12:11 PM EST) Pathologist [facility] CREATININE, RANDOM URINE 233 20 - 320 mg/dL [facility] MICROALBUMIN 2.1 mg/dL [facility] Comment: Reference Range Not established MICROALBUMIN/CREA TININE RATIO, RANDOM URINE 9 <30 mcg/mg creat [facility] Comment: The ADA defines abnormalities in albumin [...] 12:11 PM EST 08/04/2021 12:12 PM EST us Laura Young MEDICAL CODING TECHNICIAN-C LAB URINE AMBULATORY Fin al Result [facility] [address] [address], [facility] [address] [address] from Last 3 Months or Most Recently Relevant to Health Maintenance [place] Care Teams Emergency Veterinarian Relationship Specialty Start Date End Date Emanuel Patel FNP [address] [place] [address] PCP - General Family Medicine, INTERNET MARKETING SPECIALIST 06/10/20
--- OUTSIDE RECORDS SUMMARY | 2024-12-31 12:26 | XMS_ITS | Clinical Summary ---
Author Organization [facility] ity Address [address] [place] [address] Care Team Providers Care Finisher Plate Name Role Phone Unavailable Primary Care Provider [...] Vaccine (2023-2 5 season) 2024 Influenza Vaccine (Season Ended) 2025 HIB Vaccines Aged Out No longer eligi [...] age to complete this topic Meningococcal B Vaccine Aged Out No l onger eligible based on patient's age to complete [...]
--- OUTSIDE RECORDS SUMMARY | 2024-12-31 12:26 | XMS_ITS | Data Portability ---
Author Organization [facility], , [facility] Address [address] [place] [address] Care Team Providers Care Soda Drier Feeder Name Role Phone OSWALDO GODOY Primary Care Provider [phone] Assessment Encounter Date Assessment Date Assessment LastModified by Organization Details LastModified Time 11/21/2024 11/21/2024 We reviewed your chronic medical conditions and updated your plan for management. Please review instructions below. We have discussed your personal goals and discussed how to reach your goals. Please reach out to us via the Portal or phone if you have questions about your chronic conditions or if you or your caregivers require assistance in meeting your goals. Please visit our website [employer] for more patient resources. As part of your care plan, we will help coordinate your ongoing medical needs, arrange for durable medical equipment, renew prescriptions and necessary prior authorizations, facilitate getting referrals and collaborating with specialist, referrals for VNA services. geri Not available 11/21/2024 08:55:33 Plan of Treatment Reminders Order Date Submit Date Provider Last Modified By Organization Details Last Modified Time Details Appointments LAB Follow-Up 2024 09:30A M [facility] Lab Not available Not available Not available Wellness Visit 30 2024 09:30A M KANDACE DELVALLE Not available Not available Not available Lab hepatitis C virus Ab, serum [address] [facility], [address] [place] [address], [address], 12/16/2024 15:52:25 CMP, serum or plasma [address] [facility], [address] [place] [address], [address], 12/16/2024 15:52:25 lipid panel, serum 20[email or web address] [facility], [address] [place], [address], 12/16/2024 15:52:25 culture, urine 2024 025 [facility], [address] [place], [address], 11/13/2024 06:58:01 urinalysi s, dipstick 20[email or web address] [facility], [address] [place] [address], [address], 11/06/2024 18:22:29 Referral None recorded. Procedures None recorded. Surgeries None recorded. Imaging None recorded. Medication Orders oxycodone 5 mg tablet 2024 025 [id number], [address] [place], [address], 11/21/2024 12:23:33 ciproflox acin 500 mg tablet 2024 025 [id number], [address] [place], [address], 11/21/2024 12:22:30 Patient TargetsNo targets recorded. Patient Instructions Encounter Date Encounter Id Patient Instructions Last Modified By Organization Details Last Modified Time 11/07/2024 [id number] CCM: The provide r and patient discussed the Chronic Care Management program, including the services provided, and any fees associated with them. geri Not available 11/07/2024 07:36:18 Reason for Referral None Reported. Results Created Date Observation Date Name Description Value Unit Range Abnormal Flag Note LastModifiedBy Organization Detail LastModifiedTime 11/07/1911/06/2024 POC UA glu UA NEGATI VE Not Available [facility] [address] [place], [address], 11/06/2024 17:30:08 11/07/1911/06/2024 POC UA clarity UA TURBID Not Available [facility] [address] [place] [address], [address], 11/06/2024 17:30:08 11/07/1911/06/2024 POC UA uro UA 2.0000 abnormal Not Available [facility] [address] [place] [address], [address], 11/06/2024 17:30:08 11/07/19 25 11/06/2024 POC UA ket UA 1+ abnormal Not Available [facility] [address] [place] [address], [address], 11/06/2024 17:30:08 11/07/1911/06/2024 POC UA pro UA 3+ abnormal Not Available [facility] [address] [place] [address], [address], 11/06/2024 17:30:08 11/07/19 25 11/06/2024 POC UA nit UA NEGATI VE Not Available [facility] [address] [place] [address], [address], 11/06/2024 17:30:08 11/07/19 25 11/06/2024 POC UA marco antonio UA 3+ abnormal Not Available [facility] [address] [place] [address], [address], 11/06/2024 17:30:08 11/07/19 25 11/06/2024 POC UA pH UA 5.[address] [facility] [address] [place] [address], [address], 11/06/2024 17:30:08 11/07/19 25 11/06/2024 POC UA SG UA >=1.03 [address] [facility] [address] [place] [address], [address], 11/06/2024 17:30:08 11/07/19 25 11/06/2024 POC UA color UA RED Not Available [facility] [address] [place] [address], [address], 11/06/2024 17:30:08 11/07/19 25 11/06/2024 POC UA blo UA 3+ abnormal Not Available [facility] [address] [place], [address], 11/06/2024 17:30:08 11/07/19 25 11/06/2024 POC UA susanne UA 3+ abnormal Not Available [facility] [address] [place], [address], 11/06/2024 17:30:08 11/07/19 25 11/13/2024 CULTU RE, URINE , ROUTI NE culture, urine, routine abnormal CULTU RE, URINE , ROUTI NE Micro Numbe r: [id number] Test Statu s: Final Speci men Sourc e: Urine Speci men Quali ty: Adequ ate Resul t: 10,00 0-49, 000 CFU/m L of Enter ococc us faeca lis E.jordan calis ----- ----- ----- - INT CARLOS EDUARDO AMPIC ILLIN S <=2 NITRO FURAN TOIN S <=16 VANCO MYCIN S 1 S = Susce ptibl e I = Inter media te R = Resis tant NS = Not susce ptibl e SDD = Susce ptibl e Dose Depen dent * = Not Teste d NR = Not Repor dyana NN = See Thera py Comme nts [facility]vin Saucedo es Patie nt marianela colvin have saucedo ed. Refer ence range s may have been kumar ed. Sex,S pec updat ed to: M Wilner ed on: 11/12 Not Available [facility] [address], [place], [address], 11/13/2024 06:58:00 12/17/19 25 12/17/2024 URINA LYSIS color RED yellow Not Available [address], [address], 12/17/2024 09:58:00 12/17/19 25 12/17/2024 URINA LYSIS clarity TURBID clear Not Available [address], [address], 12/17/2024 09:58:00 12/17/1912/17/2024 URINA LYSIS glucose NEGATI VE negati ve Not Available [address], [address], 12/17/2024 09:58:00 12/17/1912/17/2024 URINA LYSIS bilirubin 1+ negati ve abnormal Not Available [address], [address], 12/17/2024 09:58:00 12/17/1912/17/2024 URINA LYSIS ketones TRACE negati ve abnormal Not Available [address], [address], 12/17/2024 09:58:00 12/17/1912/17/2024 URINA LYSIS specific gravity 1.025 1.001- 1.035 Not Available [address], [address], 12/17/2024 09:58:00 12/17/1912/17/2024 URINA LYSIS pH 6.0 5.0-8. 0 Not Available [address], [address], 12/17/2024 09:58:00 12/17/1912/17/2024 URINA LYSIS protein 3+ negati ve abnormal Not Available [address], [address], 12/17/2024 09:58:00 12/17/1912/17/2024 URINA LYSIS urobilinogen 2.0 E.U./D L <1.0 abnormal Not Available [address], [address], 12/17/2024 09:58:00 05/05/20 25 12/17/2024 URINA LYSIS nitrates NEGATI VE negati ve Not Available [address], [address], 12/17/2024 09:58:00 12/17/1912/17/2024 URINA LYSIS blood 3+ negati ve abnormal Not Available [address], [address], 12/17/2024 09:58:00 12/17/1912/17/2024 URINA LYSIS leukocytes NEGATI VE negati ve Not Available [address], [address], 12/17/2024 09:58:00 12/17/1912/17/2024 URINE , MICRO SCOPI C WBC 0-2 hpf 0-4/hp f Not Available [address], [address], 12/17/2024 10:00:40 12/17/19 25 12/17/2024 URINE , MICRO SCOPI C RBC >100 hpf 0-2/hp f Not Available [address], [address], 12/17/2024 10:00:40 12/17/19 25 12/17/2024 URINE , MICRO SCOPI C bacteria 1+ none seen Not Available [address], [address], 12/17/2024 10:00:40 12/17/19 25 12/17/2024 URINE , MICRO SCOPI C squamous epithelial cells 1 hpf 0-5 Not Available [address], [address], 12/17/2024 10:00:40 12/17/19 25 12/17/2024 URINE , MICRO SCOPI C calcium oxalate crystals 2+ none seen Not Available [address], [address], 12/17/2024 10:00:40 12/17/19 25 12/17/2024 URINE , MICRO SCOPI C mucous TRACE none seen Not Available [facility] [address] [facility], [place], [address], 12/17/2024 10:00:40 12/17/19 25 12/17/2024 CULTU RE, URINE , ROUTI NE culture, urine, routine CULTU RE, URINE , ROUTI NE Micro Numbe r: [id number] Test Statu s: Final Speci men Sourc e: Urine Speci men Quali ty: Adequ ate Resul t: No Growt h Not Available [facility] [address], [place], [address], 12/17/2024 23:13:45 11/09/19 25 11/08/2024 CT, abdom en + pelvi s No observ ation record ed. [email or web address] [facility] [address] [address], [place], [address], 11/08/2024 08:02:27 12/19/19 25 12/18/2024 US, kidne y CLINIC AL HISTOR Y: Right ureter al stone. Recent CT C. TECHNI QUE: 2D sonogr aphy of the kidney s. COMPAR RAMONA: None availa ble. FINDIN GS: Right kidney : Measur e approx imatel y 12.9 cm in length No hydron ephros is. No echoge wally shadow ing renal calcul us apprec iated. The liver appear s signif icantl y increa sed in echoge nicity compar ed to the right renal cortex . Left kidney : Measur e approx imatel y 12.7 cm in length No hydron ephros is. Echoge wally approx imatel y 5 mm focus with twinkl e artifa ct on color Dopple r in the midpol e of the left kidney , likely calcif icatio n, likely calcul us. Bladde r: The bladde r is under- disten ded. IMPRES SILAS: No hydron ephros is. Likely nonobs tructi ve left renal calcul us. The liver appear s increa sed in echoge nicity , likely relate d to hepati c steato sis (most common cause) or liver diseas e. Zachary g Physic alexis: Philippe galicia [facility] [address], [place], [address], 12/19/2024 09:44:14 Result Notes None recorded. Problems Name Problem SNOMED Code Status Onset Date Resolution Date Notes Provider Name and Address Organization Details Recorded Time Essential hypertension 74031691 Active 2024 OSWALDO GODOY [address] [place], [address], [facility] 09:40:52 Laparoscopic sleeve gastrectomy Active 2024 OSWALDO GODOY [address] [place], [address], [facility] 09:41:03 Prediabetes 640747324 Active 2024 OSWALDO GODOY [address] [place], [address], [facility] 09:41:19 Spinal stenosis 13586520 Active 2024 OSWALDO GODOY [address] [place], [address], [facility] 09:45:56 Problem Notes None recorded. Procedures Surgical History Date Name Laterality Status Provider Name and Address Organization Details Recorded Time Cerumen Removal - Irrigation/L avage completed Enriqueta Mcneill MA [facility] 11/07/2024 09:07:07 Imaging Results Imaging Date Name Status LastModified by Organiz ation Details LastModified Time 11/08/2024 CT, abdomen + pelvis completed [email or web address] [facility] [address], [place], [address], 11/08/2024 08:02:27 12/18/2024 US, kidney completed [facility] [address] [place], [address], 12/19/2024 09:44:14 Procedure Notes None recorded. Medical Equipment None Reported. Allergies No known drug allergies Medications Name Sig Start Date Stop Date Status Note LastModified by Organization Details LastModified Time gabapentin 600 mg tablet TAKE 1 TABLET BY MOUTH THREE TIMES DAILY active Not Available Not Available No t Available atorvastat in 20 mg tablet TAKE 1 TABLET BY MOUTH EVERY DAY active Not Available Not Available No t Available ibuprofen 800 mg tablet TAKE 1 TABLET BY MOUTH THREE TIMES A DAY NEEDED FOR PAIN active Not Available Not Available No t Available enalapril maleate 20 mg tablet TAKE 1 TABLET BY MOUTH EVERY DAY active Not Available Not Available No t Available ciprofloxa cielo 500 mg tablet TAKE 1 TABLET BY MOUTH EVERY 12 HOURS FOR 7 DAYS 11/21 completed Not Available Not Available Not Available hydrocorti sone 2.5 % topical cream with perineal applicator APPLY SPARINGLY TO AFFECTED AREA 2 TO 4 TIMES A DAY active Not Available Not Available No t Available vitamin A 3,000 mcg (10,000 unit) capsule TAKE ONE CAPSULE BY MOUTH DAILY active Not Available Not Available No t Available tamsulosin 0.4 mg capsule TAKE 1 CAPSULE BY MOUTH AT BEDTIME active Not Available Not Available No t Available pantoprazo le 40 mg tablet,del ayed release TAKE 1 TABLET BY MOUTH DAILY active Not Available Not Available No t Available ibuprofen 600 mg tablet TAKE 1 TABLET BY MOUTH EVERY 6 HOURS NEEDED FOR PAIN active Not Available Not Available No t Available ondansetro n 4 mg disintegra ting tablet TAKE 1 TABLET BY MOUTH EVERY 12 HOURS NEEDED FOR NAUSEA AND VOMITING active Not Available Not Available No t Available metformin ER 500 mg tablet,ext ended release 24 hr TAKE 1 TABLET BY MOUTH TWICE A DAY active Not Available Not Available No t Available cholecalci ferol (vitamin D3) 125 mcg (5,000 unit) capsule TAKE 1 CAPSULE BY MOUTH DAILY active Not Available Not Available No t Available oxycodone 5 mg tablet TAKE 1 TABLET BY MOUTH EVERY 6 HOURS NEEDED FOR PAIN active Not Available Not Available No t Available nitrofuran toin monohydrat e/macrocry stals 100 mg capsule TAKE 1 CAPSULE BY MOUTH EVERY 12 HOURS FOR 5 DAYS 11/21 completed Not Available Not Available Not Available enalapril maleate active takes 20mg BID 5 KRB Not Available Not Available Not Available pantoprazo le active Not Available Not Available Not Available Gavilax 17 gram/dose oral powder PLEASE SEE ATTACHED FOR DETAILED DIRECTION S active Not Available Not Available No t Available cyanocobal quach (vit B-12) 1,[address] 1 TABLET UNDER THE TONGUE AND ALLOW TO DISSOLVE FOR AT LEAST 30 SEC BEFORE SWALLOWIN G active Not Available Not Available No t Available Vitals Date Recorded Body height Body mass index (BMI) Body weight Heart rate Body temperature Systolic blood pressure Diastolic blood pressure Provider Name and Address Organization Details Last Updated DateTime 5 185.42 cm 31 kg/m2 184365. 21 g 70 /min 98.3 [degF] 112 mm[Hg] 71 mm[Hg] Jocelynn smiley Nisha [facility] 17:22:56 Date Recorded Body height Body mass index (BMI) Body weight Heart rate Systolic blood pressure Diastolic blood pressure Provider Name and Address Organization Details Last Updated DateTime 5 185.42 cm 30.9 kg/m2 893111. 41 g 78 /min 120 mm[Hg] 70 mm[Hg] Enriqueta Mcneill MA [facility] 08:21:45 Date Recorded Body height Body mass index (BMI) Body weight Heart rate Systolic blood pressure Diastolic blood pressure Provider Name and Address Organization Details Last Updated DateTime 5 185.42 cm 31.3 kg/m2 337673. 09 g 64 /min 118 mm[Hg] 80 mm[Hg] Enriqueta Mcneill MA [facility] 12:09:09 Social History Question Answer Notes LastModified by [employer] Details LastModified Time Tobacco Smoking Status [facility]/06/2024 17:20:25 What Is Your Relationship Status? Domestic Partner [email or web address] Information not available 11/07/2024 Sex: Male Functional Status Question Answer Note LastModified by [employer] Details LastModified Time Do you use any illicit or recreational drugs? No [email or web address] Information not available 11/07/2024 Do you or have you ever used any other forms of tobacco or nicotine? No [email or web address] Information not available 11/06/2024 Are you currently employed? 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 Family History Nothing Reported. Medical History No medical history recorded. Past Encounters Encounter ID Performer Location Encounter Start Date Encounter Closed Date Diagnosis/Indication Diagnosis SNOMED-CT Code Diagnosis ICD10 Code Diagnosis Note [id number] Tima Narayanan MD , [facility], OFFICE [address] [place] [address] 11/06/2024 16:59:27 11/10/2024 13:55:43 Dysuria 59761827 R30.0 Patient with urinary symptoms.W ill send urine for culture.Di scussed supportive and preventive measures.P atient instructed to follow up if not better or with new symptoms. Acute pyelonephritis 366 [address] N10 UTI with potential progressio n to pyelonephr itis. Right-side d back pain suggests kidney involvemen t. Ciprofloxa cielo chosen due to severity and sepsis risk, despite rare tendon rupture risk, which was discussed. - Prescribed ciprofloxa cielo 500 mg every 12 hours for 7 days.- Advised increased fluid intake.- Instructed to monitor for signs of worsening infection and seek medical attention if inability to hydrate or urinate, intractabl e fevers, vomiting.- Discussed rare risk of tendon rupture with fluoroquin olones and advised to report sudden pain or changes in the Achilles tendon area. [id number] Enrique Branham MD , [facility], [address] [place] [address] 11/07/2024 08:06:47 11/07/2024 12:46:28 Screening for disorder 067004338 Z11.59 Sent to be completed with other lab work. Active or passive immunization 655788325 Z23 Td/Tdap- pt not sure 11/07/24 TR Vaccine de clined by patient 7963344303 02 Z28.20 declines flu Impacted c erumen in left ear 0685632300 553825 H61.22 Irrigated completely today. Prediabetes 359093534 R7 3.03 Labs to be completed prior to wellness. Essential hypertension 54165504 I10 Hypertensi on well-manag ed with enalapril. Checks BP at home. Patient ne w to facility [id number] 45554 Z76.89 -To schedule f/u in 2 weeks for treatment of current acute pyelonephr itis (diagnosed last night at ). Emergency room signs and symptoms discussed at length with patient who shows good understand ing.-To schedule follow-up for annual wellness in 6 months to gather remainder of screenings : colonoscop y, vaccines. Labs also to be completed before that appointmen t.-Need to complete CCM discussion as that was not completed today. [id number] Enrique Branham MD , [facility], [address] [place] [address] 11/21/2024 12:01:35 11/21/2024 15:52:44 Immunization due 678516657 Z23 Td/Tdap- pt not sure 11/07/24 TR Kidney stone 96384432 N2 0.0 Right-side d 4.6 mm kidney stone with intermitte nt pain, minimal hydronephr osis. Cloudy urine and hematuria suggest stone movement.- Refilled oxycodone 5 mg, 40 tablets, every 6 hours as needed for severe pain. Caution advised before driving.- Encouraged increased hydration to facilitate stone passage.- Appreciate urology appointmen t already scheduled for December 31.- Monitor for infection signs, report fever if occurs.- Educated on avoiding high oxalate foods to prevent future stones. History of sleeve gastrectomy 4680894148 60639 Z90.3 Post-surge ry dietary restrictio ns with inadequate hydration and nutrient intake.- Encouraged hydration with bone broth and water for kidney stone passage and nutrition. Health Concerns Section Related Observation LastModified by Organization Detai ls LastModified Time None Recorded Concern Status LastModified by Organization Details LastModified Time None Recorded Advance Directives Directive None Recorded Payers Encounter Date Sequence Insurance Name Policy Number Policy Mancuso Covered Member ID Mancuso Member ID Guarantor Name 11/06/2024 2 [place] [facility] [place] [id number] [place] Molina 11/06/2024 1 [place] [employer] Arcadio Byron Niocleoa Kitchen [id number] [place] Mol[place] 11/07/2024 2 [place] [facility] [id number] [place] Mol[place] 11/07/2024 1 [place] [employer] Arcadio Byron Kitchen [id number] Arcadio Molina 11/21/2024 2 [place] [facility] Arcadio Molina [id number] Arcadio Molina 11/21/2024 1 [place] [employer] Arcadio Kitchen [id number] Arcadio Molina Notes Date Note Type Note Provider Name and Address Organization Details Recorded Time 11/06/2024 text/html 11/06/24-The maldonado ent with no history of UTI presents with dark and bloody urine. The patient first noticed an uncomfortable sensation in the genital area, followed by a change in urine color to a very dark shade. The patient denies any pain or burning sensation during urination. The patient also reports right-sided flank pain, which he describes as the worst pain he's felt, although the pain has slightly improved today. The patient also reports a history of diarrhea three to four days prior to the current symptoms. SANJUANA HALLMAN [address] [place] [address], [phone], [facility] 11/06/2024 18:09:49 11/07/2024 text/html 11/07/24: Arcadio presents to the office today to establish care. Yesterday evening, he did come into the office with concerns for dark urine and abdominal discomfort and was treated for pyelonephritis; he is currently on day 2 of ciprofloxacin. He had experienced dark urine and discomfort in the lower right abdomen since earlier this week. Initially, he attributed the symptoms to sciatic nerve issues. The urine color changed to dark by yesterday afternoon, which was concerning. Today, the urine is slightly more yellow but not normal. He has occasional itching. No fever, chills, or significant lower back pain. No concerns for STDs. He drinks water regularly, sometimes consumes protein shakes and Powerade, and monitors his blood pressure at home, which is usually around 130/88. He underwent gastric sleeve surgery on October 03 for weight management and has tolerated it well. The change in urine color did not occur immediately after the procedure. His past medical history includes a hip replacement on the right side about ten years ago, a broken ankle one to two years ago, spinal stenosis of the neck for about ten years with surgery, and lower back surgery for arthritis-related issues. He is prediabetic. Socially, he lives with his girlfriend and has limited family contact due to past issues. 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 He does not smoke but was exposed to secondhand smoke growing up. His family history includes parents who smoked, with his father still active at [age] years old and his mother having twenty years ago. OSWALDO GODOY, MEDICAL RECEPTIONIST ASSISTANT-[address], [address], [facility] 11/07/2024 09:46:54 11/21/2024 text/html 11/21/24: The sharyn deng presents with follow-up for kidney stones.He has been experiencing severe intermittent right-sided kidney pain, which led him to visit the hospital a couple of weeks ago. Blood work and a CT scan revealed a kidney stone on the right side. He experiences intermittent pain, sometimes radiating to the groin and scrotum, and describes the pain as worsening with coughing. His urine is sometimes cloudy, but he has not noticed blood in his urine recently. He completed a course of nitrofurantoin for a suspected infection and has not experienced any fevers.For pain management, he has been prescribed oxycodone and ibuprofen. He takes oxycodone only at night due to his job as a business unit controller, which requires him to avoid taking it during the day. Ibuprofen is not as effective for his pain. He has been given a limited supply of oxycodone, which he uses sparingly.He underwent gastric sleeve surgery on October 03, 2024, and has been following a restricted diet post-surgery. He has difficulty maintaining hydration and nutrition due to dietary restrictions and reports feeling hungry and fatigued at times. He is concerned about his current dietary limitations and the impact on his overall health; as well as the ability to push enough fluids to flush out this stone.He finds it challenging to drink large amounts of water due to discomfort. He has been consuming protein bars, Powerade, and Gatorade to maintain hydration and nutrition. 11/06/24-The patient with no history of UTI presents with dark and bloody urine. The patient first noticed an uncomfortable sensation in the genital area, followed by a change in urine color to a very dark shade. The patient denies any pain or burning sensation during urination. The patient also reports right-sided flank pain, which he describes as the worst pain he's felt, although the pain has slightly improved today. The patient also reports a history of diarrhea three to four days prior to the current symptoms. OSWALDO GODOY, MEDICAL RECEPTIONIST ASSISTANT-[address], [id number], [facility] [place] 11/21/2024 13:05:55
== END 2024-12-31 11:42 | disposition home or self-care (01) ==
LOC: HO.HUSH 11:08
PROVIDERS: Visit Provider Urology
DX: N20.0 Calculus of kidney (principal)
CPT/HCPCS: 99203

== ENCOUNTER → 2024-12-31 11:07 | Outpatient (BNVA) | payer MEDICARE, MEDICAID, SELFPAY | PROVIDERS: Visit Provider Urology | DX: N20.0 Calculus of kidney (principal) | CPT/HCPCS: 99202 ==

== ENCOUNTER 2025-06-27 10:36 | Outpatient (REF) | payer MEDICARE, MEDICAID, SELFPAY ==
--- NOTE | ~2025-06-27 | US_ITS ---
EXAMINATION: US RETROPERITONEAL LIMITED (RENAL ONLY) CLINICAL INFORMATION: N20.0. COMPARISON: Correlated to CT abdomen and pelvis dated November 08, 2024. TECHNIQUE: Real-time ultrasound kidneys using grayscale technique. FINDINGS: RIGHT KIDNEY: 14 x 6 x 6 cm (SAG x AP x TRV). Normal echotexture. Renal cortical thickness is normal. No hydronephrosis. No gross calculus. There is a 1.2 cm exophytic anechoic lesion without septations or nodular components in the midportion. No solid lesion. LEFT KIDNEY: 13 x 6 x 5 cm (SAG x AP x TRV). Normal echotexture. Renal cortical thickness is normal. No hydronephrosis. No solid or cystic lesion. US/US renal BI IMPRESSION: No hydronephrosis. No gross nephrolithiasis. 1.2 cm cyst, right kidney.. Electronically signed by: Efrain Hoskins MD 06/27/2025 12:40 PM EST
[2025-06-27 12:54] LABS: Appearance Urine Clear; Glucose Urine UA Negative (Negative); PH 6.0 (5.0-9.0); Specific Gravity - Urine >= 1.030 (1.005-1.025)
== END 2025-06-27 10:37 | disposition home or self-care (01) ==
LOC: HO.US 10:36
PROVIDERS: Absent Provider Urology; Visit Provider Nurse Practitioner Family
DX: N20.0 Calculus of kidney (principal)
CPT/HCPCS: 76775; 81001; 87086

== ENCOUNTER → 2025-06-27 10:55 | Outpatient (BNV) | payer MEDICARE, MEDICAID, SELFPAY | PROVIDERS: Absent Provider Urology; Visit Provider Radiology Diagnostic Radiology | DX: N28.1 Cyst of kidney, acquired (principal) | CPT/HCPCS: 76775 ==